=== PATIENT | female | born 1965 | race Caucasian/White ===

== ENCOUNTER 2020-11-29 07:14 | Outpatient (REF) | payer OTHER, SELFPAY ==
[2020-11-29 11:17] LABS: Hematocrit 44.8 % (37-47); Hemoglobin 13.5 g/dl (12.0-16.0); Mean Corpuscular HGB Conc 30.1 g/dl (31.0-35.0); Mean Corpuscular Hemoglobin 24.8 pg (27.0-33.0); Mean Corpuscular Volume 82.4 fL (80-98); Platelet Count 412 X10*3/uL (160-400); Red Blood Count 5.44 X10*6/uL (4.20-5.50); Red Cell Distribution Width 14.8 % (11.0-16.0); White Blood Count 6.6 X10*3/uL (4.8-10.8)
[2020-11-29 11:39] LABS: Alanine Aminotransferase 38 U/L (0-31); Albumin Level 4.3 g/dL (3.5-5.0); Alkaline Phosphatase 122 U/L (39-117); Anion Gap 21 (12-20); Aspartate Amino Transferase 26 U/L (5-31); Bilirubin Total 0.4 mg/dL (0.0-1.0); Blood Urea Nitrogen 18 mg/dL (9-16); Calcium 8.8 mg/dL (8.4-10.2); Carbon Dioxide 21 mmol/L (22-29); Chloride 104 mmol/L (96-108); Cholesterol 169 mg/dL; Estimated Glomerular Filt Rate > 60; Glucose Fasting 193 mg/dL (60-99); HDL Cholesterol 34 mg/dL; LDL Cholesterol Calculated 93 mg/dl; Potassium 4.7 mmol/l (3.3-5.1); Sodium 141 mmol/L (135-145); Total Protein 7.2 g/dL (6.5-8.0); Triglycerides 212 mg/dL
[2020-11-29 11:46] LABS: Estimated Average Glucose 186 mg/dL; Hemoglobin A1c % 8.1 %
[2020-11-29 11:57] LABS: TSH reflex Free T4 4.35 mIU/mL (0.32-4.0)
[2020-11-29 12:23] LABS: Creatinine Urine 109.84 mg/dL; Microalbum/Creatinine Ratio Ur 74.6 ug/mg cr
[2020-11-29 13:26] LABS: Free T4 (Free Thyroxine) 0.76 ng/dL (0.71-1.85)
== END 2020-11-29 07:15 | disposition home or self-care (01) ==
LOC: HO.HMGCLDS 07:14
PROVIDERS: PCP Internal Medicine; Visit Provider Internal Medicine
DX: E66.9 Obesity, unspecified (principal); E78.5 Hyperlipidemia, unspecified; E11.9 Type 2 diabetes mellitus without complications
CPT/HCPCS: 36415; 80053; 80061; 82043; 83036; 84439; 84443; 85027

== ENCOUNTER 2021-03-17 07:09 | Outpatient (REF) | payer OTHER, SELFPAY ==
[2021-03-17 11:36] LABS: Estimated Average Glucose 169 mg/dL; Hemoglobin A1c % 7.5 %
[2021-03-17 11:49] LABS: Creatinine Urine 72.46 mg/dL; Microalbum/Creatinine Ratio Ur 6.9 ug/mg cr
[2021-03-17 12:02] LABS: Alanine Aminotransferase 26 U/L (0-31); Albumin Level 4.3 g/dL (3.5-5.0); Alkaline Phosphatase 112 U/L (39-117); Anion Gap 15 (12-20); Aspartate Amino Transferase 20 U/L (5-31); Bilirubin Total 0.3 mg/dL (0.0-1.0); Blood Urea Nitrogen 20 mg/dL (9-16); Carbon Dioxide 25 mmol/L (22-29); Chloride 104 mmol/L (96-108); Cholesterol 136 mg/dL; Estimated Glomerular Filt Rate > 60; Glucose Fasting 158 mg/dL (60-99); HDL Cholesterol 29 mg/dL; LDL Cholesterol Calculated 72 mg/dl; Potassium 4.8 mmol/L (3.3-5.1); Sodium 139 mmol/L (135-145); Total Protein 7.1 g/dL (6.5-8.0); Triglycerides 177 mg/dL
[2021-03-17 12:10] LABS: TSH reflex Free T4 2.27 uIU/mL (0.32-4.0)
== END 2021-03-17 07:10 | disposition home or self-care (01) ==
LOC: HO.HMGCLDS 07:09
PROVIDERS: PCP Internal Medicine; Visit Provider Internal Medicine
DX: E11.9 Type 2 diabetes mellitus without complications (principal); E66.9 Obesity, unspecified; E78.5 Hyperlipidemia, unspecified
CPT/HCPCS: 36415; 80053; 80061; 82043; 83036; 84443

== ENCOUNTER 2021-06-21 08:25 | Outpatient (REF) | payer OTHER, SELFPAY ==
[2021-06-21 12:48] LABS: Estimated Average Glucose 154 mg/dL
[2021-06-21 12:54] LABS: Alanine Aminotransferase 32 U/L (0-31); Albumin Level 4.2 g/dL (3.5-5.0); Alkaline Phosphatase 109 U/L (39-117); Anion Gap 16 (12-20); Aspartate Amino Transferase 23 U/L (5-31); Bilirubin Total 0.5 mg/dL (0.0-1.0); Blood Urea Nitrogen 17 mg/dL (9-16); Calcium 9.2 mg/dL (8.4-10.2); Carbon Dioxide 26 mmol/L (22-29); Chloride 105 mmol/L (96-108); Cholesterol 141 mg/dL; Estimated Glomerular Filt Rate > 60; Glucose Fasting 118 mg/dL (60-99); HDL Cholesterol 28 mg/dL; LDL Cholesterol Calculated 73 mg/dl; Potassium 4.8 mmol/L (3.3-5.1); Sodium 142 mmol/L (135-145); Total Protein 6.9 g/dL (6.5-8.0); Triglycerides 203 mg/dL
[2021-06-21 12:55] LABS: Creatinine Urine 79.65 mg/dL; Microalbumin Urine < 5.0 mg/L
== END 2021-06-21 08:26 | disposition home or self-care (01) ==
LOC: HO.HMGCLDS 08:25
PROVIDERS: PCP Internal Medicine; Visit Provider Internal Medicine
DX: E11.9 Type 2 diabetes mellitus without complications (principal); E78.5 Hyperlipidemia, unspecified
CPT/HCPCS: 36415; 80053; 80061; 82043; 83036; 84443

== ENCOUNTER 2021-11-01 10:47 | Outpatient (REF) | payer OTHER, SELFPAY ==
[2021-11-01 14:17] LABS: Estimated Average Glucose 160 mg/dL; Hemoglobin A1c % 7.2 %
[2021-11-01 14:23] LABS: Alanine Aminotransferase 35 U/L (0-31); Albumin Level 4.3 g/dL (3.5-5.0); Alkaline Phosphatase 108 U/L (39-117); Anion Gap 17 (12-20); Aspartate Amino Transferase 26 U/L (5-31); Bilirubin Total 0.5 mg/dL (0.0-1.0); Blood Urea Nitrogen 20 mg/dL (9-16); Calcium 9.4 mg/dL (8.4-10.2); Carbon Dioxide 26 mmol/L (22-29); Chloride 105 mmol/L (96-108); Cholesterol 144 mg/dL; Estimated Glomerular Filt Rate > 60; Glucose Fasting 112 mg/dL (60-99); HDL Cholesterol 29 mg/dL; LDL Cholesterol Calculated 87 mg/dl; Potassium 4.6 mmol/L (3.3-5.1); Sodium 143 mmol/L (135-145); Total Protein 7.1 g/dL (6.5-8.0); Triglycerides 140 mg/dL
[2021-11-01 14:24] LABS: Creatinine Urine 88.28 mg/dL
== END 2021-11-01 10:48 | disposition home or self-care (01) ==
LOC: HO.HMGCLDS 10:47
PROVIDERS: PCP Internal Medicine; Visit Provider Internal Medicine
DX: E11.9 Type 2 diabetes mellitus without complications (principal); E78.5 Hyperlipidemia, unspecified
CPT/HCPCS: 36415; 80053; 80061; 82043; 83036

== ENCOUNTER 2022-02-14 09:06 | Outpatient (REF) | payer OTHER, SELFPAY ==
[2022-02-14 11:23] LABS: Hematocrit 43.2 % (37.0-47.0); Hemoglobin 12.7 g/dl (12.0-16.0); Mean Corpuscular HGB Conc 29.4 g/dl (31.0-35.0); Mean Corpuscular Hemoglobin 23.6 pg (27.0-33.0); Mean Corpuscular Volume 80.1 fL (80.0-98.0); Platelet Count 392 X10*3/uL (160-400); Red Blood Count 5.39 X10*6/uL (4.20-5.50); Red Cell Distribution Width 15.9 % (11.0-16.0); White Blood Count 5.7 X10*3/uL (4.8-10.8)
[2022-02-14 11:40] LABS: Anion Gap 14 (12-20); Blood Urea Nitrogen 16 mg/dL (9-16); Carbon Dioxide 26 mmol/L (22-29); Chloride 106 mmol/L (96-108); Estimated Glomerular Filt Rate > 60; Glucose Fasting 136 mg/dL (60-99); Potassium 4.6 mmol/L (3.3-5.1); Sodium 141 mmol/L (135-145)
[2022-02-14 11:41] LABS: Alanine Aminotransferase 34 U/L (0-31); Albumin Level 4.1 g/dL (3.5-5.0); Alkaline Phosphatase 106 U/L (39-117); Aspartate Amino Transferase 23 U/L (5-31); Bilirubin Total 0.4 mg/dL (0.0-1.0); Cholesterol 138 mg/dL; HDL Cholesterol 28 mg/dL; LDL Cholesterol Calculated 83 mg/dl; Total Protein 6.8 g/dL (6.5-8.0); Triglycerides 135 mg/dL
[2022-02-14 11:44] LABS: Creatinine Urine 68.59 mg/dL; Estimated Average Glucose 151 mg/dL; Hemoglobin A1c % 6.9 %; Microalbum/Creatinine Ratio Ur 7.2 ug/mg cr
== END 2022-02-14 09:07 | disposition home or self-care (01) ==
LOC: HO.HMGCLDS 09:06
PROVIDERS: PCP Internal Medicine; Visit Provider Internal Medicine
DX: Z00.00 Encounter for general adult medical examination without abnormal findings (principal); E11.9 Type 2 diabetes mellitus without complications; E78.5 Hyperlipidemia, unspecified
CPT/HCPCS: 36415; 80053; 80061; 82043; 83036; 85027

== ENCOUNTER 2022-05-30 10:12 | Outpatient (REF) | payer OTHER, SELFPAY ==
[2022-05-30 11:21] LABS: Estimated Average Glucose 154 mg/dL
[2022-05-30 11:41] LABS: Alanine Aminotransferase 34 U/L (0-31); Albumin Level 4.2 g/dL (3.5-5.0); Alkaline Phosphatase 113 U/L (39-117); Anion Gap 13 (12-20); Aspartate Amino Transferase 21 U/L (5-31); Bilirubin Total 0.6 mg/dL (0.0-1.0); Blood Urea Nitrogen 20 mg/dL (9-16); Carbon Dioxide 26 mmol/L (22-29); Chloride 107 mmol/L (96-108); Cholesterol 159 mg/dL; Estimated Glomerular Filt Rate > 60; Glucose Fasting 123 mg/dL (60-99); HDL Cholesterol 34 mg/dL; LDL Cholesterol Calculated 85 mg/dl; Potassium 4.5 mmol/L (3.3-5.1); Sodium 141 mmol/L (135-145); Total Protein 6.9 g/dL (6.5-8.0); Triglycerides 202 mg/dL
[2022-05-30 11:44] LABS: Creatinine Urine 76.92 mg/dL; Microalbum/Creatinine Ratio Ur 11.7 ug/mg cr
== END 2022-05-30 10:13 | disposition home or self-care (01) ==
LOC: HO.HMGCLDS 10:12
PROVIDERS: PCP Internal Medicine; Visit Provider Internal Medicine
DX: E11.9 Type 2 diabetes mellitus without complications (principal); E78.5 Hyperlipidemia, unspecified
CPT/HCPCS: 36415; 80053; 80061; 82043; 83036

== ENCOUNTER 2022-09-05 09:21 | Outpatient (REF) | payer OTHER, SELFPAY ==
[2022-09-05 11:33] LABS: MANUAL DIFF FLAG NO
[2022-09-05 11:39] LABS: Basophils Percent Auto 0.6 % (0-2); Eosinophils Absolute Auto 0.3 X10*3/uL (0.0-0.4); Eosinophils Percent Auto 6.5 % (0-4); Hematocrit 41.9 % (37.0-47.0); Hemoglobin 12.8 g/dl (12.0-16.0); Imm Gran Abs Auto 0.01 X10*3/uL (0.00-0.03); Imm Gran Pct Auto 0.2 % (0.0-0.4); Lymphocytes Absolute Auto 1.7 X10*3/uL (1.2-4.9); Lymphocytes Percent Auto 32.5 % (20-40); Mean Corpuscular HGB Conc 30.5 g/dl (31.0-35.0); Mean Corpuscular Volume 78.5 fL (80.0-98.0); Mean Platelet Volume 9.9 fL (9.4-12.3); Monocytes Absolute Auto 0.3 X10*3/uL (0.1-1.2); Monocytes Percent Auto 5.9 % (2-11); Neutrophils Absolute Auto 2.9 x10*3/uL (2.0-8.3); Neutrophils Percent Auto 54.3 % (45-73); Platelet Count 210 X10*3/uL (160-400); Red Blood Count 5.34 X10*6/uL (4.20-5.50); Red Cell Distribution Width 15.8 % (11.0-16.0); White Blood Count 5.3 X10*3/uL (4.8-10.8)
[2022-09-05 12:11] LABS: Estimated Average Glucose 151 mg/dL; Hemoglobin A1c % 6.9 %
[2022-09-05 12:22] LABS: Creatinine Urine 76.65 mg/dL; Microalbum/Creatinine Ratio Ur 14.3 ug/mg cr
[2022-09-05 12:34] LABS: Alanine Aminotransferase 27 U/L (0-31); Albumin Level 3.9 g/dL (3.5-5.0); Alkaline Phosphatase 96 U/L (39-117); Anion Gap 18 (12-20); Aspartate Amino Transferase 20 U/L (5-31); Bilirubin Total 0.4 mg/dL (0.0-1.0); Blood Urea Nitrogen 20 mg/dL (9-16); Calcium 8.7 mg/dL (8.4-10.2); Carbon Dioxide 23 mmol/L (22-29); Chloride 105 mmol/L (96-108); Cholesterol 144 mg/dL; Estimated Glomerular Filt Rate > 60; Glucose Fasting 128 mg/dL (60-99); HDL Cholesterol 28 mg/dL; LDL Cholesterol Calculated 74 mg/dl; Potassium 4.4 mmol/L (3.3-5.1); Sodium 142 mmol/L (135-145); Total Protein 6.3 g/dL (6.5-8.0); Triglycerides 212 mg/dL
== END 2022-09-05 09:22 | disposition home or self-care (01) ==
LOC: HO.HMGCLDS 09:21
PROVIDERS: PCP Internal Medicine; Visit Provider Internal Medicine
DX: E78.5 Hyperlipidemia, unspecified (principal); E11.9 Type 2 diabetes mellitus without complications
CPT/HCPCS: 36415; 80053; 80061; 82043; 83036; 85025

== ENCOUNTER → 2022-12-22 08:22 | Outpatient (BNVA) | payer OTHER, SELFPAY | PROVIDERS: PCP Internal Medicine; Visit Provider Nurse Practitioner Family | DX: Z13.89 Encounter for screening for other disorder (principal) ==

== ENCOUNTER 2023-01-16 10:27 | Outpatient (REF) | payer OTHER, SELFPAY ==
[2023-01-16 13:25] LABS: Alanine Aminotransferase 36 U/L (0-31); Albumin Level 4.3 g/dL (3.5-5.0); Alkaline Phosphatase 108 U/L (39-117); Anion Gap 15 (12-20); Aspartate Amino Transferase 26 U/L (5-31); Bilirubin Total 0.8 mg/dL (0.0-1.0); Blood Urea Nitrogen 20 mg/dL (9-16); Carbon Dioxide 25 mmol/L (22-29); Chloride 106 mmol/L (96-108); Cholesterol 164 mg/dL; Estimated Glomerular Filt Rate > 60; Glucose Fasting 112 mg/dL (60-99); HDL Cholesterol 32 mg/dL; LDL Cholesterol Calculated 105 mg/dl; Potassium 4.5 mmol/L (3.3-5.1); Sodium 141 mmol/L (135-145); Total Protein 6.9 g/dL (6.5-8.0); Triglycerides 136 mg/dL
[2023-01-16 13:35] LABS: Creatinine Urine 76.09 mg/dL; Estimated Average Glucose 148 mg/dL; Hemoglobin A1c % 6.8 %; Microalbum/Creatinine Ratio Ur 15.7 ug/mg cr
== END 2023-01-16 10:28 | disposition home or self-care (01) ==
LOC: HO.HMGCLDS 10:27
PROVIDERS: PCP Internal Medicine; Visit Provider Internal Medicine
DX: E11.9 Type 2 diabetes mellitus without complications (principal); E78.5 Hyperlipidemia, unspecified; E66.9 Obesity, unspecified; M85.80 Other specified disorders of bone density and structure, unspecified site; R19.5 Other fecal abnormalities
CPT/HCPCS: 36415; 80053; 80061; 82043; 83036

== ENCOUNTER 2023-01-23 13:11 | Outpatient (REF) | payer OTHER, SELFPAY ==
--- NOTE | ~2023-01-23 | XR_ITS ---
EXAMINATION: XR CHEST CLINICAL INFORMATION: Cough COMPARISON: None TECHNIQUE: 2 views of the chest were obtained. FINDINGS: Cardiac silhouette is normal in size. The lungs are well aerated. There is no lobar consolidation. No pleural effusion or pneumothorax. Mild degenerative changes of the spine. XR/XR chest 2V IMPRESSION: No acute pulmonary pathology.
[2023-01-23 17:11] LABS: Influenza A PCR NEGATIVE (Negative); Influenza B PCR NEGATIVE (Negative); Resp Syncy Virus RNA Qual PCR NEGATIVE (Negative); SARS COV2 PCR INHOUSE NEGATIVE (Negative)
== END 2023-01-23 13:12 | disposition home or self-care (01) ==
LOC: HO.HMGCX 13:11
PROVIDERS: PCP Internal Medicine; Visit Provider Physician Assistant Medical
DX: Z20.822 Contact with and (suspected) exposure to COVID-19 (principal); R05.9 Cough, unspecified
CPT/HCPCS: 0241U; 71046

== ENCOUNTER 2023-04-05 08:29 | Day surgery (SDC) | payer OTHER, SELFPAY ==
[2023-04-01 10:12] VITALS: BMI 43.8
[2023-04-05 08:46] VITALS: BP 145/89; PULSE 89; RESP 18; TEMP 36.2; O2SAT 95; BMI 49.3
[2023-04-05 09:01] LABS: Glucose, Whole Blood 150 mg/dL (60-115)
[2023-04-05] MEDS: Lactated Ringers 1,000 ML 50 ML IVCONT (09:10)
--- NOTE | 2023-04-05 09:12 | MHC.SHP ---
Pre-Procedural Eval Section A Date of Service: 04/05/23 The patient is an INPATIENT: No The History & Physical has been completed within 30 days and I have reviewed it.: No Section B Chief Complaint: Encounter for screening for malignant neoplasm Relevant Family History (Specify if Yes): No Relevant Social History: None Present Medications: see Short Stay Collaborative assessment Medical History: Significant History (DM type 2 (diabetes mellitus, type 2) Hyperlipidemia Mammogram normal Normal Pap smear Osteopenia Overweight Sleep apnea) History of Previous Operations: No relevant previous surgery Allergies: Allergies Allergy/AdvReac Type Severity Reaction Status Date / Time No Known Allergies Allergy Verified 02/10/23 08:42 Review of Systems Sugical H&P ROS: Negative: Constitution, Cardiovascular, Respiratory and Gastrointestinal Exam Surgical H&P Exam: Normal: Heart, Normal: Lungs, Normal: Extremities and Normal: Abdomen Plan Diagnosis/Plan: Unchanged I have reviewed the history and physical and performed a pertinent physical examination on my patient. No changes have occurred unless specified. Time Spent With Patient Time: Total time managing care of this patient today ____ minutes.
--- NOTE | 2023-04-05 09:19 | P.OP_ITS ---
Operative Note Operative Note Date of Service: 04/05/23 Narrative: COLONOSCOPY TILL CECUM WITH BIOPSIES Pre-op diagnosis: COLON CANCER SCREENING, POSITIVE COLOGUARD TEST Post-op diagnosis:? Diverticulosis Endoscopist:? Brodie Squires MD Anesthesia:?MAC Consent: Indications for the procedure and potential complications of bleeding, perforation, reaction to medications and missed diagnosis were discussed with the patient and informed consent was obtained. Instrument: Olympus PCF H 190 L variable stiffness pediatric colonoscope Monitoring: Vital signs and clinical assessment, intermittent blood pressure monitoring, continuous EKG monitoring, Pulse oximetry and Carbon Dioxide monitoring were done throughout the procedure. Please see anesthesia flowsheet. Colon withdrawl time was 15 minutes. Procedure: The patient was placed in the left lateral decubitis position and pre-procedure medications were administered. After a digital rectal examination of the ano-rectum, the video colonoscope was inserted into the rectum and advanced through the colon to the cecum. The colonoscope was slowly withdrawn in a retrograde panoramic fashion and the colon mucosa was carefully examined including a retroflexed view of the rectum. Findings and interventions are described below. Procedure Difficulty: Colon was long and there was some loop formation. Findings: Terminal Ileum: Not evaluated Cecum: Prominent ICV - biopsies obtained from the posterior lip of the valve Ascending Colon: Normal Transverse Colon: Normal Descending Colon: Normal Sigmoid Colon: Moderate diverticulosis Rectum: Normal Ano-rectum: Normal Colon preparation: Good after copious irrigation Impression and Post Procedure Diagnosis: Colonoscopy Findings: No polyps were detected Prominent ICV - biopsies obtained from the posterior lip of the valve Moderate diverticulosis seen in the sigmoid colon Plan: Await pathology results Patient has an appointment on 04/13/23 in the GI [facility] with Raissa Allred FNP- BC. Repeat Colonoscopy interval based on path results - in 5 years if biopsies are normal. (adult colonoscope for future colonoscopies) Above findings were reviewed with the patient and diverticulosis handout was given in the discharge area
[2023-04-05 10:05] VITALS: BP 102/72; PULSE 84; RESP 16; TEMP 36.1; O2SAT 96
[2023-04-05 10:20] VITALS: BP 126/74; PULSE 80; RESP 16; TEMP 36.2; O2SAT 95
== END 2023-04-05 10:45 | disposition home or self-care (01) ==
PROVIDERS: PCP Internal Medicine; Visit Provider Internal Medicine Gastroenterology
PROC: 0DJD8ZZ Inspection of Lower Intestinal Tract, Via Natural or Artificial Opening Endoscopic (ICD-10-PCS; CPT 45378; principal; 2023-04-05 09:30)
DX: R19.5 Other fecal abnormalities (principal); K57.30 Diverticulosis of large intestine without perforation or abscess without bleeding; G47.33 Obstructive sleep apnea (adult) (pediatric); E11.9 Type 2 diabetes mellitus without complications; E78.5 Hyperlipidemia, unspecified; E66.3 Overweight; Z68.41 Body mass index [BMI] 40.0-44.9, adult; M85.80 Other specified disorders of bone density and structure, unspecified site; Z79.82 Long term (current) use of aspirin; Z79.84 Long term (current) use of oral hypoglycemic drugs; Z79.899 Other long term (current) drug therapy
CPT/HCPCS: 45380; 82947; 88305

== ENCOUNTER → 2023-04-13 07:55 | Outpatient (BNVA) | payer OTHER, SELFPAY | PROVIDERS: PCP Internal Medicine; Referring Provider Internal Medicine; Visit Provider Nurse Practitioner Family ==

== ENCOUNTER 2023-06-05 10:15 | Outpatient (REF) | payer OTHER, SELFPAY ==
[2023-06-05 11:31] LABS: Estimated Average Glucose 146 mg/dL; Hemoglobin A1c % 6.7 %
[2023-06-05 11:47] LABS: Creatinine Urine 140.35 mg/dL; Microalbum/Creatinine Ratio Ur 8.5 ug/mg cr
[2023-06-05 11:48] LABS: Alanine Aminotransferase 35 U/L (0-31); Albumin Level 4.2 g/dL (3.5-5.0); Alkaline Phosphatase 100 U/L (39-117); Anion Gap 13 (12-20); Aspartate Amino Transferase 28 U/L (5-31); Bilirubin Total 0.6 mg/dL (0.0-1.0); Blood Urea Nitrogen 21 mg/dL (9-16); Calcium 9.7 mg/dL (8.4-10.2); Carbon Dioxide 26 mmol/L (22-29); Chloride 106 mmol/L (96-108); Cholesterol 162 mg/dL; Estimated Glomerular Filt Rate > 60; Glucose Fasting 123 mg/dL (60-99); HDL Cholesterol 36 mg/dL; LDL Cholesterol Calculated 101 mg/dl; Potassium 4.4 mmol/L (3.3-5.1); Sodium 141 mmol/L (135-145); Triglycerides 126 mg/dL
== END 2023-06-05 10:16 | disposition home or self-care (01) ==
LOC: HO.HMGCLDS 10:15
PROVIDERS: PCP Internal Medicine; Visit Provider Internal Medicine
DX: E11.9 Type 2 diabetes mellitus without complications (principal); E78.5 Hyperlipidemia, unspecified
CPT/HCPCS: 36415; 80053; 80061; 82043; 83036

== ENCOUNTER 2023-06-11 08:21 | Outpatient (AMB) | payer OTHER, SELFPAY ==
[2023-06-11 08:27] VITALS: BP 110/64; PULSE 88; O2SAT 97; BMI 48.7
--- NOTE | 2023-06-11 08:27 | A.OFFPC_ITS ---
Vital Signs 06/11/23 08:27 Height 5 ft 1.5 in Weight 262 lb BMI 48.7 BP 110/64 Blood Pressure Location Rt brachial Position Sitting Pulse 88 Pulse Source Pulse Oximeter Pulse Oximetry (%) 97 Oxygen Delivery Method Room Air Intake Visit Reasons: 4m follow up DM Intake Note: Pt is here today for her 4 mo. f/u DM Allergies No Known Allergies Allergy (Verified 06/11/23 08:27) Tobacco use date assessed: 06/11/23 Dental Screening Dental Screen Date: 06/11/23 Did you have a dental visit in the last 12 months?: Yes Did you have a dental problem in the last 6 months where you did not have access to dental care?: No Was dental information given to patient?: Patient has dentist HPI 4m follow up DM HPI Details Pt presents for f/u DM 2 and hyperlipid, stable. 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 How often do you have a drink containing alcohol?: Never Total Score: 0 VICTORIANO-7 AMB Questionnaire VICTORIANO-7 Date VICTORIANO - 7 assessed: 02/10/23 Source: Developed by Drs. Pete Chung, Iris Oh, Leon Lopez and colleagues, with an educational lamont from [employer]. Review of Systems Const All systems reviewed & are unremarkable except as noted in HPI and below Reports no additional complaints Eyes Reports no additional complaints ENT Reports no additional complaints Card Reports no additional complaints Resp Reports no additional complaints GI Reports no additional complaints Reports no additional complaints Physical exam (Primary Care) Vital Signs: Last Vital Signs Pulse 88 06/11/23 08:27 BP 110/64 06/11/23 08:27 Pulse Ox 97 06/11/23 08:27 Oxygen Delivery Method Room Air 06/11/23 08:27 BMI result Body Mass Index 48.7 Tobacco/Smoking Status: Tobacco use Status Tobacco use date assessed 06/11/23 06/11/23 08:31 Patient Tobacco Use Status Never used Tobacco 06/11/23 08:31 e-Cigarette/Vaping Use Never Used 06/11/23 08:31 Thrive Assessment: Date of Thrive Assessment Date Thrive assessed 02/10/23 06/11/23 08:31 Const General: no acute distress HENMT Head: Yes normal to inspection Ears: hearing grossly normal bilaterally Face and sinus: Yes normal facial exam Throat: Yes posterior oropharynx normal Eyes General: appearance normal, both eyes and all related structures Neck Neck: Yes no lymphadenopathy and Yes supple Resp Effort & Inspection: normal respiratory effort Auscultation: clear to auscultation bilaterally Cardio Rhythm: regular rhythm Heart sounds: S1 normal heart sound present and S2 normal heart sound present GI Inspection: Yes normal to inspection Palpation (GI): Soft to palpation Percussion: Yes normal to percussion Assessment and Plan Assessment & Plan (1) Hyperlipidemia: Code(s): E78.5 - Hyperlipidemia, unspecified Plan: cont statin (2) DM type 2 (diabetes mellitus, type 2): Code(s): E11.9 - Type 2 diabetes mellitus without complications Plan: A1c is 6.8. ADA diet increase exercise weight loss discussed with the patient. Patient was advised to add Ozempic but she declined. She will return in 4 months for physical with fasting labs before (3) Hx of colonoscopy: Comment: 04.05.23 [facility] [place] Code(s): Z98.890 - Other specified postprocedural states Orders: Orders Comprehensive [place]. Panel Fast 4 Months E11.9 - Type 2 diabetes mellitus without complications, E78.5 - Hyperlipidemia, unspecified, Z00.00 - Encounter for general adult medical examination without abnormal findings Complete Blood Count Man Dif 4 Months E11.9 - Type 2 diabetes mellitus without complications, E78.5 - Hyperlipidemia, unspecified, Z00.00 - Encounter for general adult medical examination without abnormal findings Hemoglobin A1c 4 Months E11.9 - Type 2 diabetes mellitus without complications, E78.5 - Hyperlipidemia, unspecified, Z00.00 - Encounter for general adult medical examination without abnormal findings Lipid Panel 4 Months E11.9 - Type 2 diabetes mellitus without complications, E78.5 - Hyperlipidemia, unspecified, Z00.00 - Encounter for general adult medical examination without abnormal findings Microalbumin, Random (w Creat) 4 Months E11.9 - Type 2 diabetes mellitus without complications, E78.5 - Hyperlipidemia, unspecified, Z00.00 - Encounter for general adult medical examination without abnormal findings Coding Level of Care Code Est Pt Level 4 (79443) Diagnoses Hyperlipidemia E78.5 DM type 2 (diabetes mellitus, type 2) E11.9 Hx of colonoscopy Z98.890
== END 2023-06-11 09:10 | disposition home or self-care (01) ==
PROVIDERS: Visit Provider Internal Medicine
DX: E78.5 Hyperlipidemia, unspecified (principal); E11.9 Type 2 diabetes mellitus without complications; Z98.890 Other specified postprocedural states
CPT/HCPCS: 99214

== ENCOUNTER 2023-10-09 09:33 | Outpatient (REF) | payer OTHER, SELFPAY ==
[2023-10-09 11:14] LABS: Baso%MD 0.6 %; Eos%MD 4.4 %; Hemoglobin 13.6 g/dl (12.0-16.0); IG%MD 0.2 %; Lymph%MD 34.1 %; Mean Corpuscular HGB Conc 30.2 g/dl (31.0-35.0); Mean Corpuscular Hemoglobin 24.2 pg (27.0-33.0); Mean Corpuscular Volume 79.9 fL (80.0-98.0); Mean Platelet Volume 9.9 fL (9.4-12.3); Mono%MD 6.1 %; Neut%MD 54.6 %; Platelet Count 339 X10*3/uL (160-400); Red Blood Count 5.63 X10*6/uL (4.20-5.50); Red Cell Distribution Width 15.5 % (11.0-16.0); White Blood Count 5.5 X10*3/uL (4.8-10.8)
[2023-10-09 11:23] LABS: Estimated Average Glucose 143 mg/dL; Hemoglobin A1c % 6.6 % (<6.0)
[2023-10-09 11:49] LABS: Creatinine Urine 67.27 mg/dL; Microalbumin Urine < 5.0 mg/L
[2023-10-09 11:52] LABS: Eosinophils Absolute Manual 0.2 X10*3/uL (0.0-0.4); Eosinophils Percent Manual 4 % (0-4); Lymphocytes Absolute Manual 1.6 X10*3/uL (1.2-4.9); Lymphocytes Percent Manual 29 % (20-40); Monocytes Absolute Manual 0.4 X10*3/uL (0.1-1.2); Monocytes Percent Manual 8 % (2-11); Neutrophils Percent Manual 59 % (45-73)
[2023-10-09 11:53] LABS: Band Neutrophils Percent 0 % (3-5); Neutrophils Absolute Manual 3.2 X10*3/uL (2.0-8.3)
[2023-10-09 11:54] LABS: Platelet Estimate NORMAL (NORMAL); Platelet Morphology Comment NORMAL; RBC Morphology NORMAL
[2023-10-09 11:57] LABS: Alanine Aminotransferase 40 U/L (0-31); Albumin Level 4.2 g/dL (3.5-5.0); Alkaline Phosphatase 92 U/L (39-117); Anion Gap 14 (12-20); Aspartate Amino Transferase 25 U/L (5-31); Bilirubin Total 0.3 mg/dL (0.0-1.0); Blood Urea Nitrogen 22 mg/dL (9-16); Calcium 9.1 mg/dL (8.4-10.2); Carbon Dioxide 25 mmol/L (22-29); Chloride 106 mmol/L (96-108); Cholesterol 155 mg/dL (<200); Estimated Glomerular Filt Rate > 60; Glucose Fasting 130 mg/dL (60-99); HDL Cholesterol 35 mg/dL (>40); LDL Cholesterol Calculated 88 mg/dL (<100); Potassium 4.5 mmol/L (3.3-5.1); Sodium 140 mmol/L (135-145); Total Protein 6.9 g/dL (6.5-8.0); Triglycerides 160 mg/dL (<150)
== END 2023-10-09 09:34 | disposition home or self-care (01) ==
LOC: HO.HMGCLDS 09:33
PROVIDERS: PCP Internal Medicine; Visit Provider Internal Medicine
DX: Z00.00 Encounter for general adult medical examination without abnormal findings (principal); E78.5 Hyperlipidemia, unspecified; E11.9 Type 2 diabetes mellitus without complications
CPT/HCPCS: 36415; 80053; 80061; 82570; 83036; 85007; 85027

== ENCOUNTER 2023-10-19 08:10 | Outpatient (AMB) | payer OTHER, SELFPAY ==
[2023-10-19 08:14] VITALS: BP 124/78; PULSE 85; O2SAT 96; BMI 48.1
--- NOTE | 2023-10-19 08:14 | MHC.PC.OV ---
Vital Signs 10/19/23 08:14 Height 5 ft 1.5 in Weight 259 lb BMI 48.1 BP 124/78 Blood Pressure Location Lt brachial Position Sitting Pulse 85 Pulse Source Pulse Oximeter Pulse Oximetry (%) 96 Oxygen Delivery Method Room Air Intake Visit Reasons: 4m follow up/PE Intake Note: Pt is here today for 4 months follow up visit. Allergies No Known Allergies Allergy (Verified 10/19/23 08:17) Medication List - Last Reconciled 10/19/23 by Michaela Corbett MD aspirin 81 mg PO DAILY atorvastatin 20 mg PO DAILY blood sugar diagnostic (FreeStyle Lite Strips) use twice daily to test blood sugar blood-glucose meter (FreeStyle Lite Meter kit) As directed empagliflozin (Jardiance) 25 mg PO QAM lancets (FreeStyle Lancets) use 1 strip to test blood sugar twice a day metformin ER 1,000 mg (2 x 500 mg) PO BID Tobacco use date assessed: 10/19/23 Dental Screening Dental Screen Date: 10/19/23 Did you have a dental visit in the last 12 months?: Yes Did you have a dental problem in the last 6 months where you did not have access to dental care?: No Was dental information given to patient?: Patient has dentist HPI 4m follow up/PE HPI Details Pt presents for PE. 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 Alcohol intake: current Alcohol intake frequency: holidays/special occasions only Patient Tobacco Use Status: Never used Tobacco e-Cigarette/Vaping Use: Never Used Current occupational status: employed Cognitive needs: No Hearing needs: No Vision needs: Yes Questionnaire Thrive Questionnaire Date Thrive assessed: 02/10/23 I am a: Patient What is your living situation today?: I have a steady place to live Within the past 12 months, did the food you bought not last and you didn't have the money to get more?: Never true Within the past 12 months, did you worry whether your food would run out before you got money to buy more?: Never true AUDIT C Alcohol Use Questionnaire (AUDIT-C) 1. How often do you have a drink containing alcohol?: Monthly or less 2. How many drinks containing alcohol do you have on a typical day when you are drinking?: 1 or 2 3. How often do you have six or more drinks on one occasion?: Never Total Score: 1 VICTORIANO-7 AMB Questionnaire VICTORIANO-7 Date VICTORIANO - 7 assessed: 02/10/23 Feeling nervous, anxious, or on edge: 0 = Not at all Not being able to stop or control worryin = Not at all Worrying too much about different things: 0 = Not at all Trouble relaxin = Not at all Being so restless that it is hard to sit still: 0 = Not at all Becoming easily annoyed or irritable: 0 = Not at all Feeling afraid as if something awful might happen: 0 = Not at all Total VICTORIANO-7 score (0-4 normal; 5-9 mild; 10-14 moderate; 15-21 severe): 0 Source: Developed by Drs. Pete Chung, Iris Oh, Leon Lopez and colleagues, with an educational lamont from [employer]. Review of Systems Const All systems reviewed & are unremarkable except as noted in HPI and below Reports no additional complaints Eyes Reports no additional complaints Card Reports no additional complaints Resp Reports no additional complaints GI Reports no additional complaints Reports no additional complaints Musc Reports no additional complaints Physical exam (Primary Care) Vital Signs: Last Vital Signs Pulse 85 10/19/23 08:14 BP 124/78 10/19/23 08:14 Pulse Ox 96 10/19/23 08:14 Oxygen Delivery Method Room Air 10/19/23 08:14 BMI result Body Mass Index 48.1 Tobacco/Smoking Status: Tobacco use Status Tobacco use date assessed 10/19/23 10/19/23 08:19 Patient Tobacco Use Status Never used Tobacco 10/19/23 08:19 e-Cigarette/Vaping Use Never Used 10/19/23 08:19 Thrive Assessment: Date of Thrive Assessment Date Thrive assessed 02/10/23 10/19/23 08:19 Const General: no acute distress HENMT Face and sinus: Yes normal facial exam Throat: Yes posterior oropharynx normal Neck Neck: Yes no lymphadenopathy and Yes supple Resp Effort & Inspection: normal respiratory effort Auscultation: clear to auscultation bilaterally Cardio Rhythm: regular rhythm Heart sounds: S1 normal heart sound present and S2 normal heart sound present GI Inspection: Yes normal to inspection Palpation (GI): Soft to palpation Percussion: Yes normal to percussion Auscultation: normal bowel sounds Assessment and Plan Assessment & Plan (1) Annual physical exam: Onset Date: ~06/11/23 Code(s): Z00.00 - Encounter for general adult medical examination without abnormal findings Plan: ADA DIET REGULAR EXERCISE WEIGHT LOSS DISCUSSED WITH THE PATIENT. SHE IS UP-TO-DATE WITH MAMMOGRAM PAP SMEAR AND COLONOSCOPY (2) Hyperlipidemia: Code(s): E78.5 - Hyperlipidemia, unspecified Plan: cont statin (3) DM type 2 (diabetes mellitus, type 2): Comment: pt declined GLP-1 receptor agonist Code(s): E11.9 - Type 2 diabetes mellitus without complications Plan: A1C is 6.6, ADA diet, weight loss exercise , cont meds, f/u 4 months (4) Obese: Code(s): E66.9 - Obesity, unspecified Orders: Orders Hemoglobin A1c 4 Months E11.9 - Type 2 diabetes mellitus without complications, E66.9 - Obesity, unspecified, E78.5 - Hyperlipidemia, unspecified, Z00.00 - Encounter for general adult medical examination without abnormal findings Complete Blood Count Auto Diff 4 Months E11.9 - Type 2 diabetes mellitus without complications, E66.9 - Obesity, unspecified, E78.5 - Hyperlipidemia, unspecified, Z00.00 - Encounter for general adult medical examination without abnormal findings Comprehensive [place]. Panel Fast 4 Months E11.9 - Type 2 diabetes mellitus without complications, E66.9 - Obesity, unspecified, E78.5 - Hyperlipidemia, unspecified, Z00.00 - Encounter for general adult medical examination without abnormal findings Lipid Panel 4 Months E11.9 - Type 2 diabetes mellitus without complications, E66.9 - Obesity, unspecified, E78.5 - Hyperlipidemia, unspecified, Z00.00 - Encounter for general adult medical examination without abnormal findings Microalbumin, Random (w Creat) 4 Months E11.9 - Type 2 diabetes mellitus without complications, E66.9 - Obesity, unspecified, E78.5 - Hyperlipidemia, unspecified, Z00.00 - Encounter for general adult medical examination without abnormal findings Medications: Refilled empagliflozin (Jardiance) 25 mg PO QAM 90 tabs 3RF Coding Level of Care Code Est Pt Prev Care 40-64y(74873) Diagnoses Annual physical exam Z00.00 Hyperlipidemia E78.5 DM type 2 (diabetes mellitus, type 2) E11.9 Obese E66.9
== END 2023-10-19 09:04 | disposition home or self-care (01) ==
PROVIDERS: PCP Internal Medicine; Visit Provider Internal Medicine
DX: Z00.00 Encounter for general adult medical examination without abnormal findings (principal); E11.9 Type 2 diabetes mellitus without complications; Z68.42 Body mass index [BMI] 45.0-49.9, adult; E78.5 Hyperlipidemia, unspecified; E66.9 Obesity, unspecified
CPT/HCPCS: 99396

== ENCOUNTER 2024-02-12 10:41 | Outpatient (REF) | payer OTHER, SELFPAY ==
[2024-02-12 13:39] LABS: MANUAL DIFF FLAG NO
[2024-02-12 13:40] LABS: Basophils Percent Auto 0.4 % (0-2); Eosinophils Absolute Auto 0.1 X10*3/uL (0.0-0.4); Eosinophils Percent Auto 2.3 % (0-4); Hematocrit 42.4 % (37.0-47.0); Imm Gran Abs Auto 0.01 X10*3/uL (0.00-0.03); Imm Gran Pct Auto 0.2 % (0.0-0.4); Lymphocytes Absolute Auto 1.7 X10*3/uL (1.2-4.9); Lymphocytes Percent Auto 33.4 % (20-40); Mean Corpuscular HGB Conc 30.7 g/dl (31.0-35.0); Mean Corpuscular Hemoglobin 24.5 pg (27.0-33.0); Mean Corpuscular Volume 79.8 fL (80.0-98.0); Mean Platelet Volume 10.5 fL (9.4-12.3); Monocytes Absolute Auto 0.3 X10*3/uL (0.1-1.2); Monocytes Percent Auto 6.4 % (2-11); Neutrophils Percent Auto 57.3 % (45-73); Platelet Count 228 X10*3/uL (160-400); Red Blood Count 5.31 X10*6/uL (4.20-5.50); Red Cell Distribution Width 15.2 % (11.0-16.0); White Blood Count 5.2 X10*3/uL (4.8-10.8)
[2024-02-12 13:53] LABS: Alanine Aminotransferase 35 U/L (0-31); Alkaline Phosphatase 92 U/L (39-117); Anion Gap 14 (12-20); Aspartate Amino Transferase 24 U/L (5-31); Bilirubin Total 0.3 mg/dL (0.0-1.0); Blood Urea Nitrogen 20 mg/dL (9-16); Carbon Dioxide 22 mmol/L (22-29); Chloride 108 mmol/L (96-108); Cholesterol 140 mg/dL (<200); Estimated Glomerular Filt Rate > 60; Glucose Fasting 120 mg/dL (60-99); HDL Cholesterol 35 mg/dL (>40); LDL Cholesterol Calculated 80 mg/dL (<100); Potassium 4.2 mmol/L (3.3-5.1); Sodium 140 mmol/L (135-145); Total Protein 6.7 g/dL (6.5-8.0); Triglycerides 129 mg/dL (<150)
[2024-02-12 13:56] LABS: Estimated Average Glucose 148 mg/dL; Hemoglobin A1c % 6.8 % (<6.0)
[2024-02-12 14:07] LABS: Creatinine Urine 97.55 mg/dL; Microalbum/Creatinine Ratio Ur 7.1 ug/mg cr (<30)
== END 2024-02-12 10:42 | disposition home or self-care (01) ==
LOC: HO.HMGCLDS 10:41
PROVIDERS: PCP Internal Medicine; Visit Provider Internal Medicine
DX: Z00.00 Encounter for general adult medical examination without abnormal findings (principal); E78.5 Hyperlipidemia, unspecified; E11.9 Type 2 diabetes mellitus without complications; E66.9 Obesity, unspecified
CPT/HCPCS: 36415; 80053; 80061; 82043; 82570; 83036; 85025

== ENCOUNTER 2024-02-21 08:30 | Outpatient (AMB) | payer OTHER, SELFPAY ==
--- NOTE | 2024-02-21 08:45 | MHC.PC.OV ---
Vital Signs 02/21/24 08:46 Height 5 ft 5.1 in Weight 260 lb BMI 43.1 BP 126/76 Blood Pressure Location Rt brachial Position Sitting Pulse 85 Pulse Source Pulse Oximeter Pulse Oximetry (%) 95 Oxygen Delivery Method Room Air Intake Visit Reasons: 3 Month follow up Intake Note: Pt is here today for 4 months follow up visit. Allergies No Known Allergies Allergy (Verified 02/21/24 08:50) Medication List - Last Reconciled 02/21/24 by Michaela Corbett MD aspirin 81 mg PO DAILY atorvastatin 20 mg PO DAILY blood sugar diagnostic (FreeStyle Lite Strips) use twice daily to test blood sugar blood-glucose meter (FreeStyle Lite Meter kit) As directed empagliflozin (Jardiance) 25 mg PO QAM lancets (FreeStyle Lancets) use 1 strip to test blood sugar twice a day metformin ER 1,000 mg (2 x 500 mg) PO BID Tobacco use date assessed: 02/21/24 Dental Screening Dental Screen Date: 02/21/24 Did you have a dental visit in the last 12 months?: Yes Did you have a dental problem in the last 6 months where you did not have access to dental care?: No Was dental information given to patient?: Patient has dentist HPI 3 Month follow up HPI Details Pt presents for f/u DM 2, hyperlipid, stable on meds. 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 1. Little interest or pleasure in doing things: not at all 2. Feeling down, depressed, or hopeless: several days 3. Trouble falling or staying asleep, or sleeping too much: several days 4. Feeling tired or having little energy: several days 5. Poor appetite or overeating: not at all 6. Feeling bad about yourself - or that you are a failure or have let yourself or your family down: not at all 7. Trouble concentrating on things, such as reading the newspaper or watching television: not at all 8. Moving or speaking so slowly that other people could have noticed. Or the opposite - being so fidgety or restless that you have been moving around a lot more than usual: not at all 9. Thoughts that you would be better off or of hurting yourself in some way: not at all Total score: 3 Depression Screening Interpretation: Negative Depression Screening Done: Yes 21776 - PHQ-9 Billing: Yes Source: Developed by Drs. Pete Chung, Iris Oh, Leon Lopez and colleagues, with an educational lamont from [employer]. Thrive Questionnaire Date Thrive assessed: 02/21/24 I am a: Patient What is your living situation today?: I have a steady place to live Within the past 12 months, did the food you bought not last and you didn't have the money to get more?: Never true Within the past 12 months, did you worry whether your food would run out before you got money to buy more?: Never true Do you have trouble paying for medicines?: No Do you have trouble getting transportation to medical appointments?: No Do you have trouble paying your heating and electricity bill?: No Do you have trouble taking care of your child, family member or friend?: No Do you have trouble with day-to-day activities such as bathing, preparing meals, shopping, managing finances, etc.?: No Are you currently unemployed and looking for a job?: No Are you interested in more education?: No Please select the resources that you would like help with: None Currently or been in a relationship where the following occur: no concerns reported THRIVE Score: 0 AUDIT C Alcohol Use Questionnaire (AUDIT-C) 1. How often do you have a drink containing alcohol?: Never 3. How often do you have six or more drinks on one occasion?: Never Total Score: 0 VICTORIANO-7 AMB Questionnaire VICTORIANO-7 Date VICTORIANO - 7 assessed: 02/21/24 Feeling nervous, anxious, or on edge: 0 = Not at all Not being able to stop or control worryin = Not at all Worrying too much about different things: 0 = Not at all Trouble relaxin = Not at all Being so restless that it is hard to sit still: 0 = Not at all Becoming easily annoyed or irritable: 0 = Not at all Feeling afraid as if something awful might happen: 0 = Not at all Total VICTORIANO-7 score (0-4 normal; 5-9 mild; 10-14 moderate; 15-21 severe): 0 Source: Developed by Drs. Pete Chung, Iris Oh, Leon Lopez and colleagues, with an educational lamont from [employer]. Review of Systems Const All systems reviewed & are unremarkable except as noted in HPI and below Reports no additional complaints Eyes Reports no additional complaints ENT Reports no additional complaints Card Reports no additional complaints Resp Reports no additional complaints GI Reports no additional complaints Reports no additional complaints Physical exam (Primary Care) Vital Signs: Last Vital Signs Pulse 85 02/21/24 08:46 BP 126/76 02/21/24 08:46 Pulse Ox 95 02/21/24 08:46 Oxygen Delivery Method Room Air 02/21/24 08:46 BMI result Body Mass Index 43.1 Tobacco/Smoking Status: Tobacco use Status Tobacco use date assessed 02/21/24 02/21/24 08:53 Patient Tobacco Use Status Never used Tobacco 02/21/24 08:53 e-Cigarette/Vaping Use Never Used 02/21/24 08:45 PHQ-9: PHQ-9 Score PHQ-9: Total score 3 02/21/24 09:17 Depression Screening Interpretation: Negative Thrive Assessment: Date of Thrive Assessment Date Thrive assessed 02/21/24 02/21/24 08:53 Currently or been in a relationship where the following occur: no concerns reported Const General: no acute distress HENMT Head: Yes normal to inspection Ears: hearing grossly normal bilaterally Throat: Yes posterior oropharynx normal Eyes General: appearance normal, both eyes and all related structures Neck Neck: Yes supple Resp Effort & Inspection: normal respiratory effort Auscultation: clear to auscultation bilaterally Cardio Rhythm: regular rhythm Heart sounds: S1 normal heart sound present and S2 normal heart sound present GI Inspection: Yes normal to inspection Palpation (GI): Soft to palpation Percussion: Yes normal to percussion Auscultation: normal bowel sounds Assessment and Plan Assessment & Plan (1) DM type 2 (diabetes mellitus, type 2): Comment: pt declined GLP-1 receptor agonist Code(s): E11.9 - Type 2 diabetes mellitus without complications Plan: A1C 6.8, ADA diet, exercise, weight loss discussed, Pt declined GLP 1 receptor agonist, f/u 3 month (2) Obese: Code(s): E66.9 - Obesity, unspecified Plan: weight loss discussed, (3) Hyperlipidemia: Code(s): E78.5 - Hyperlipidemia, unspecified Plan: cont statin Orders: Orders Complete Blood Count Auto Diff 3 Months E11.9 - Type 2 diabetes mellitus without complications, E66.9 - Obesity, unspecified, E78.5 - Hyperlipidemia, unspecified Hemoglobin A1c 3 Months E11.9 - Type 2 diabetes mellitus without complications, E66.9 - Obesity, unspecified, E78.5 - Hyperlipidemia, unspecified Lipid Panel 3 Months E11.9 - Type 2 diabetes mellitus without complications, E66.9 - Obesity, unspecified, E78.5 - Hyperlipidemia, unspecified Comprehensive Hewitt. Panel Fast 3 Months E11.9 - Type 2 diabetes mellitus without complications, E66.9 - Obesity, unspecified, E78.5 - Hyperlipidemia, unspecified Microalbumin, Random (w Creat) 3 Months E11.9 - Type 2 diabetes mellitus without complications, E66.9 - Obesity, unspecified, E78.5 - Hyperlipidemia, unspecified Referrals Nutrition/Dietitian Referral E11.9 - Type 2 diabetes mellitus without complications, E66.9 - Obesity, unspecified Coding Level of Care Code Est Pt Level 4 (41947) Diagnoses DM type 2 (diabetes mellitus, type 2) E11.9 Obese E66.9 Hyperlipidemia E78.5
[2024-02-21 08:46] VITALS: BP 126/76; PULSE 85; O2SAT 95; BMI 43.1
== END 2024-02-21 12:01 | disposition home or self-care (01) ==
PROVIDERS: PCP Internal Medicine; Visit Provider Internal Medicine
DX: E11.9 Type 2 diabetes mellitus without complications (principal); E66.9 Obesity, unspecified; Z68.41 Body mass index [BMI] 40.0-44.9, adult; E78.5 Hyperlipidemia, unspecified
CPT/HCPCS: 99214

== ENCOUNTER 2024-04-12 08:15 | Outpatient (AMB) | payer OTHER, SELFPAY ==
[2024-04-12 08:33] VITALS: BMI 47.8
--- NOTE | 2024-04-12 08:33 | A.OFFVIS_ITS ---
VS Expanded 04/12/24 08:33 04/12/24 08:40 Height 5 ft 1.5 in 5 ft 1.5 in Weight 257 lb 4.471 oz 257 lb BMI 47.8 47.8 Intake Visit Reasons: T2DM, Obesity/LVM Allergies No Known Allergies Allergy (Verified 02/21/24 08:50) Nutrition Presentation Details: Pt presents for MNT for T2DM. Pt was referred by Dr. Corbett, primary care physician . BS Monitoring Most Recent Diabetes Results: Microalb/Creat Ratio 7.1 ug/mg cr (<30) 02/12/24 Cholesterol 140 mg/dL (<200) 02/12/24 HDL Cholesterol 35 mg/dL (>40) L 02/12/24 Triglycerides 129 mg/dL (<150) 02/12/24 Creatinine 0.64 mg/dL (0.5-1.4) 02/12/24 Blood Urea Nitrogen 20 mg/dL (9-16) H 02/12/24 Sodium 140 mmol/L (135-145) 02/12/24 Potassium 4.2 mmol/L (3.3-5.1) 02/12/24 Chloride 108 mmol/L (96-108) 02/12/24 Carbon Dioxide 22 mmol/L (22-29) 02/12/24 Calcium 9.0 mg/dL (8.4-10.2) 02/12/24 AST 24 U/L (5-31) 02/12/24 ALT 35 U/L (0-31) H 02/12/24 Total Protein 6.7 g/dL (6.5-8.0) 02/12/24 Albumin 4.0 g/dL (3.5-5.0) 02/12/24 ZKB-Aobjknr-Ta.Jeor Equation Height: 5 ft 1.5 in Weight: 257 lb Resting Metabolic Rate: 1689.60 Calculated Activity Level: Sedentary Calories Needed to Maintain Weight: 2026.52 Diagnosis Nutrition problem #1: excessive energy intake As related to (etiology) #1: diagnosis As evidenced by (sign/symptom) #1: knowledge deficit of diet Monitoring/Goals Nutrition problem monitoring: level of knowledge/skill [facility] Medical History Overweight Sleep apnea Osteopenia Annual physical exam (~06/11/23) Mammogram normal Normal Pap smear Hyperlipidemia DM type 2 (diabetes mellitus, type 2) Surgical History Hx of colonoscopy Status post surgical removal of malignant neoplasm of skin Surgical history unknown Family History Mother Diabetes Kidney failure HTN (hypertension) CHF (congestive heart failure) Father Heart problem Social History Household Members Other:: 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, 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, 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 Housing: House Alcohol intake: current Alcohol intake frequency: holidays/special occasions only Patient Tobacco Use Status: Never used Tobacco e-Cigarette/Vaping Use: Never Used Current occupational status: employed Cognitive needs: No Hearing needs: No Vision needs: Yes Assessment & Plan Assessment & Plan (1) DM type 2 (diabetes mellitus, type 2): Code(s): E11.9 - Type 2 diabetes mellitus without complications Category: Medical Plan: Wt: 117 Kg ( 03/2024 ) Est kcal needs as per MSJ: 1700 (40% carb, 30% protein/fat) Est fluid needs as per 25-30 ml/d: 3500 Est prot per day as per 1 g/kg bw: 117 Recommend fiber intake : 8-10 g per day and gradually increase to 25-28 g per day for women and 35-38 g for men or as tolerated Recommend sodium intake per day : less than 1500 mg less than 2000 mg Educated patient on: ( R = reviewed V = verbalizes understanding N/R = needs review N/A = not applicable * Food sources of carbohydrate, adequate serving sizes and its role in various health conditions: R * Differences between complex carbohydrates a simple carbohydrates, role of fiber in diet: R * Lean protein sources of foods: R * Differences between types of fats and role in diet (mono on saturated fat fatty acids, saturated fatty acids, trans fats): R basic * Food sources of sodium in salt and healthy modifications for heart health in kidney health: NR * Vitamins and minerals: R * Healthy plate method concept: R * Physical activity: Benefits a precaution: R V N/R * Hypoglycemia protocol (rule of 15): R V N/R * Dietary prevention of Hyperglycemia: R Patient Instructions: Reduce on total carbs to less than 60 g at meal following healthy plate method Keep hydrated by having water , herb infused water Coding Level of Care Code Nutr Indiv Intake (07662) Diagnoses DM type 2 (diabetes mellitus, type 2) E11.9 Time Spent (min) 30
[2024-04-20 21:45] VITALS: BMI 47.8
== END 2024-04-12 09:06 | disposition home or self-care (01) ==
PROVIDERS: PCP Internal Medicine; Visit Provider Dietitian, Registered
DX: E11.9 Type 2 diabetes mellitus without complications (principal)

== ENCOUNTER → 2024-04-12 08:15 | Outpatient (BNVA) | payer OTHER, SELFPAY | PROVIDERS: PCP Internal Medicine; Visit Provider Dietitian, Registered | DX: E11.9 Type 2 diabetes mellitus without complications (principal); Z71.3 Dietary counseling and surveillance | CPT/HCPCS: 97802 ==

== ENCOUNTER 2024-05-13 09:49 | Outpatient (REF) | payer OTHER, SELFPAY ==
[2024-05-13 11:29] LABS: MANUAL DIFF FLAG NO
[2024-05-13 11:35] LABS: Basophils Percent Auto 0.6 % (0-2); Eosinophils Absolute Auto 0.2 X10*3/uL (0.0-0.4); Eosinophils Percent Auto 4.1 % (0-4); Hematocrit 41.8 % (37.0-47.0); Hemoglobin 12.7 g/dl (12.0-16.0); Imm Gran Abs Auto 0.01 X10*3/uL (0.00-0.03); Imm Gran Pct Auto 0.2 % (0.0-0.4); Lymphocytes Absolute Auto 1.6 X10*3/uL (1.2-4.9); Lymphocytes Percent Auto 32.5 % (20-40); Mean Corpuscular HGB Conc 30.4 g/dl (31.0-35.0); Mean Corpuscular Hemoglobin 23.7 pg (27.0-33.0); Mean Platelet Volume 9.8 fL (9.4-12.3); Monocytes Absolute Auto 0.4 X10*3/uL (0.1-1.2); Monocytes Percent Auto 7.1 % (2-11); Neutrophils Absolute Auto 2.7 x10*3/uL (2.0-8.3); Neutrophils Percent Auto 55.5 % (45-73); Platelet Count 343 X10*3/uL (160-400); Red Blood Count 5.36 X10*6/uL (4.20-5.50); Red Cell Distribution Width 16.7 % (11.0-16.0); White Blood Count 4.9 X10*3/uL (4.8-10.8)
[2024-05-13 11:40] LABS: Estimated Average Glucose 154 mg/dL
[2024-05-13 11:55] LABS: Alanine Aminotransferase 35 U/L (0-31); Alkaline Phosphatase 90 U/L (39-117); Anion Gap 13 (12-20); Aspartate Amino Transferase 28 U/L (5-31); Bilirubin Total 0.6 mg/dL (0.0-1.0); Blood Urea Nitrogen 25 mg/dL (9-16); Calcium 8.9 mg/dL (8.4-10.2); Carbon Dioxide 24 mmol/L (22-29); Chloride 107 mmol/L (96-108); Cholesterol 165 mg/dL (<200); Estimated Glomerular Filt Rate > 60; Glucose Fasting 124 mg/dL (60-99); HDL Cholesterol 34 mg/dL (>40); LDL Cholesterol Calculated 92 mg/dL (<100); Potassium 4.1 mmol/L (3.3-5.1); Sodium 140 mmol/L (135-145); Total Protein 6.7 g/dL (6.5-8.0); Triglycerides 196 mg/dL (<150)
[2024-05-13 12:13] LABS: Creatinine Urine 92.78 mg/dL; Microalbum/Creatinine Ratio Ur 6.4 ug/mg cr (<30)
== END 2024-05-13 09:50 | disposition home or self-care (01) ==
LOC: HO.HMGCLDS 09:49
PROVIDERS: PCP Internal Medicine; Visit Provider Internal Medicine
DX: E11.9 Type 2 diabetes mellitus without complications (principal); E78.5 Hyperlipidemia, unspecified; E66.9 Obesity, unspecified
CPT/HCPCS: 36415; 80053; 80061; 82043; 82570; 83036; 85025

== ENCOUNTER 2024-05-30 08:17 | Outpatient (AMB) | payer OTHER, SELFPAY ==
[2024-05-30 08:32] VITALS: BMI 47.5
--- NOTE | 2024-05-30 08:32 | A.OFFVIS_ITS ---
VS Expanded 05/30/24 08:32 Height 5 ft 1.5 in Weight 255 lb 4.725 oz BMI 47.5 Intake Visit Reasons: T2DM/LVM Allergies No Known Allergies Allergy (Verified 02/21/24 08:50) Nutrition Presentation Details: Pt presents for MNT f/u for T2DM Pt reports working on meal modifications BS Monitoring Most Recent Diabetes Results: Microalb/Creat Ratio 6.4 ug/mg cr (<30) 05/13/24 Cholesterol 165 mg/dL (<200) 05/13/24 HDL Cholesterol 34 mg/dL (>40) L 05/13/24 Triglycerides 196 mg/dL (<150) H 05/13/24 Creatinine 0.71 mg/dL (0.5-1.4) 05/13/24 Blood Urea Nitrogen 25 mg/dL (9-16) H 05/13/24 Sodium 140 mmol/L (135-145) 05/13/24 Potassium 4.1 mmol/L (3.3-5.1) 05/13/24 Chloride 107 mmol/L (96-108) 05/13/24 Carbon Dioxide 24 mmol/L (22-29) 05/13/24 Calcium 8.9 mg/dL (8.4-10.2) 05/13/24 AST 28 U/L (5-31) 05/13/24 ALT 35 U/L (0-31) H 05/13/24 Total Protein 6.7 g/dL (6.5-8.0) 05/13/24 Albumin 4.0 g/dL (3.5-5.0) 05/13/24 [facility] Medical History Overweight Sleep apnea Osteopenia Annual physical exam (~06/11/23) Mammogram normal Normal Pap smear Hyperlipidemia DM type 2 (diabetes mellitus, type 2) Surgical History Hx of colonoscopy Status post surgical removal of malignant neoplasm of skin Surgical history unknown Family History Mother Diabetes Kidney failure HTN (hypertension) CHF (congestive heart failure) Father Heart problem Social History Household Members Other:: 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, 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, 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 Alcohol intake: current Alcohol intake frequency: holidays/special occasions only Patient Tobacco Use Status: Never used Tobacco e-Cigarette/Vaping Use: Never Used Current occupational status: employed Cognitive needs: No Hearing needs: No Vision needs: Yes Assessment & Plan Assessment & Plan (1) DM type 2 (diabetes mellitus, type 2): Code(s): E11.9 - Type 2 diabetes mellitus without complications Category: Medical Plan: Wt: 117 Kg ( 03/2024 ), 115.9 kg(06/14) Est kcal needs as per MSJ: 1700 (40% carb, 30% protein/fat) Est fluid needs as per 25-30 ml/d: 3500 Est prot per day as per 1 g/kg bw: 117 Recommend fiber intake : 8-10 g per day and gradually increase to 25-28 g per day for women and 35-38 g for men or as tolerated Recommend sodium intake per day : less than 1500 mg less than 2000 mg Educated patient on: ( R = reviewed V = verbalizes understanding N/R = needs review N/A = not applicable * Food sources of carbohydrate, adequate serving sizes and its role in various health conditions: R * Differences between complex carbohydrates a simple carbohydrates, role of fiber in diet: R * Lean protein sources of foods: R * Differences between types of fats and role in diet (mono on saturated fat fatty acids, saturated fatty acids, trans fats): R basic * Food sources of sodium in salt and healthy modifications for heart health in kidney health: NR * Vitamins and minerals: R * Healthy plate method concept: R * Physical activity: Benefits a precaution: R V N/R * Hypoglycemia protocol (rule of 15): R V N/R * Dietary prevention of Hyperglycemia: R Patient Instructions: Continue working on following healthy plate method Continue working reducing on sugars (pastries, sugars added to foods) Engage in physical activity: walking as able, keeping hydrated by having water with meals/snack Coding Level of Care Code Nutr Indiv Subseq (57338) Diagnoses DM type 2 (diabetes mellitus, type 2) E11.9 Time Spent (min) 30
== END 2024-05-30 09:04 | disposition home or self-care (01) ==
PROVIDERS: PCP Internal Medicine; Visit Provider Dietitian, Registered
DX: E11.9 Type 2 diabetes mellitus without complications (principal)

== ENCOUNTER → 2024-05-30 08:17 | Outpatient (BNVA) | payer OTHER, SELFPAY | PROVIDERS: PCP Internal Medicine; Visit Provider Dietitian, Registered | DX: E11.9 Type 2 diabetes mellitus without complications (principal); Z71.3 Dietary counseling and surveillance | CPT/HCPCS: 97803 ==

== ENCOUNTER 2024-07-13 12:33 | Outpatient (AMB) | payer OTHER, SELFPAY ==
[2024-07-13 12:35] VITALS: BP 114/66; PULSE 86; O2SAT 97; BMI 48.0
--- NOTE | 2024-07-13 12:35 | MHC.PC.OV ---
Vital Signs 07/13/24 12:35 Height 5 ft 1.5 in Weight 258 lb BMI 48.0 BP 114/66 Blood Pressure Location Rt brachial Position Sitting Pulse 86 Pulse Source Pulse Oximeter Pulse Oximetry (%) 97 Oxygen Delivery Method Room Air Intake Visit Reasons: Follow up DM Intake Note: Pt is here today for a follow up visit on DM. Allergies No Known Allergies Allergy (Verified 07/13/24 12:40) Medication List - Last Reconciled 07/13/24 by Michaela Corbett MD aspirin 81 mg PO DAILY atorvastatin 20 mg PO DAILY blood sugar diagnostic (FreeStyle Lite Strips) use twice daily to test blood sugar blood-glucose meter (FreeStyle Lite Meter kit) As directed empagliflozin (Jardiance) 25 mg PO QAM lancets (FreeStyle Lancets) use 1 strip to test blood sugar twice a day metformin ER 1,000 mg (2 x 500 mg) PO BID Tobacco use date assessed: 07/13/24 Dental Screening Dental Screen Date: 02/21/24 HPI Follow up DM HPI Details Pt ppresents for f/u DM2 and hyperlipid, stable on meds. 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 1. Little interest or pleasure in doing things: not at all 2. Feeling down, depressed, or hopeless: not at all 3. Trouble falling or staying asleep, or sleeping too much: not at all 4. Feeling tired or having little energy: not at all 5. Poor appetite or overeating: not at all 6. Feeling bad about yourself - or that you are a failure or have let yourself or your family down: not at all 7. Trouble concentrating on things, such as reading the newspaper or watching television: not at all 8. Moving or speaking so slowly that other people could have noticed. Or the opposite - being so fidgety or restless that you have been moving around a lot more than usual: not at all 9. Thoughts that you would be better off or of hurting yourself in some way: not at all Total score: 0 Depression Screening Interpretation: Negative Depression Screening Done: Yes 66931 - PHQ-9 Billing: Yes Source: Developed by Drs. Pete Chung, Iris Oh, Leon Lopez and colleagues, with an educational lamont from [employer]. Thrive Questionnaire Date Thrive assessed: 07/13/24 I am a: Patient What is your living situation today?: I have a steady place to live Within the past 12 months, did the food you bought not last and you didn't have the money to get more?: Never true Within the past 12 months, did you worry whether your food would run out before you got money to buy more?: Never true Do you have trouble paying for medicines?: No Do you have trouble getting transportation to medical appointments?: No Do you have trouble paying your heating and electricity bill?: No Do you have trouble taking care of your child, family member or friend?: No Do you have trouble with day-to-day activities such as bathing, preparing meals, shopping, managing finances, etc.?: No Are you currently unemployed and looking for a job?: No Are you interested in more education?: No Please select the resources that you would like help with: None Currently or been in a relationship where the following occur: No concerns reported THRIVE Score: 0 AUDIT C Alcohol Use Questionnaire (AUDIT-C) 1. How often do you have a drink containing alcohol?: Never 3. How often do you have six or more drinks on one occasion?: Never Total Score: 0 VICOTRIANO-7 AMB Questionnaire VICTORIANO-7 Date VICTORIANO - 7 assessed: 07/13/24 Feeling nervous, anxious, or on edge: 0 = Not at all Not being able to stop or control worryin = Not at all Worrying too much about different things: 0 = Not at all Trouble relaxin = Not at all Being so restless that it is hard to sit still: 0 = Not at all Becoming easily annoyed or irritable: 0 = Not at all Feeling afraid as if something awful might happen: 0 = Not at all Total VICTORIANO-7 score (0-4 normal; 5-9 mild; 10-14 moderate; 15-21 severe): 0 Source: Developed by Drs. Pete Chung, Iris Oh, Leon Lopez and colleagues, with an educational lamont from [employer]. VICTORIANO-7 Assessment Billing VICTORIANO-7 Assessment Tool: VICTORIANO-7 Assessment 45774 Review of Systems Const All systems reviewed & are unremarkable except as noted in HPI and below Eyes Reports no additional complaints ENT Reports no additional complaints Card Reports no additional complaints Resp Reports no additional complaints GI Reports no additional complaints Reports no additional complaints Physical exam (Primary Care) Vital Signs: Last Vital Signs Pulse 86 07/13/24 12:35 BP 114/66 07/13/24 12:35 Pulse Ox 97 07/13/24 12:35 Oxygen Delivery Method Room Air 07/13/24 12:35 BMI result Body Mass Index 48.0 Tobacco/Smoking Status: Tobacco use Status Tobacco use date assessed 07/13/24 07/13/24 12:36 Patient Tobacco Use Status Never used Tobacco 07/13/24 12:36 e-Cigarette/Vaping Use Never Used 07/13/24 12:35 PHQ-9: PHQ-9 Score PHQ-9: Total score 0 07/13/24 12:42 Depression Screening Interpretation: Negative Thrive Assessment: Date of Thrive Assessment Date Thrive assessed 07/13/24 07/13/24 12:42 Currently or been in a relationship where the following occur: No concerns reported Const General: no acute distress HENMT Head: Yes normal to inspection Mouth: Normal oral and palatal mucosa present Throat: Yes posterior oropharynx normal Eyes General: appearance normal, both eyes and all related structures Neck Neck: Yes supple Resp Effort & Inspection: normal respiratory effort Auscultation: clear to auscultation bilaterally Cardio Rhythm: regular rhythm Heart sounds: S1 normal heart sound present and S2 normal heart sound present GI Inspection: Yes normal to inspection Palpation (GI): Soft to palpation Percussion: Yes normal to percussion Assessment and Plan Assessment & Plan (1) DM type 2 (diabetes mellitus, type 2): Comment: pt declined GLP 1 AGONIST Code(s): E11.9 - Type 2 diabetes mellitus without complications Plan: A1C is 7.0, ADA diet, increase exercise, weight loss discussed, continue current medication follow-up in 4 months with a fasting labs (2) Hyperlipidemia: Code(s): E78.5 - Hyperlipidemia, unspecified Plan: Continue statin (3) Overweight: Code(s): E66.3 - Overweight Plan: Increase physical activity decrease caloric intake weight loss discussed with the patient. Orders: Orders Complete Blood Count Auto Diff 4 Months E11.9 - Type 2 diabetes mellitus without complications, E78.5 - Hyperlipidemia, unspecified Lipid Panel 4 Months E11.9 - Type 2 diabetes mellitus without complications, E78.5 - Hyperlipidemia, unspecified Comprehensive [place]. Panel Fast 4 Months E11.9 - Type 2 diabetes mellitus without complications, E78.5 - Hyperlipidemia, unspecified Microalbumin, Random (w Creat) 4 Months E11.9 - Type 2 diabetes mellitus without complications, E78.5 - Hyperlipidemia, unspecified Medications: Refilled atorvastatin 20 mg PO DAILY 90 tabs 3RF E78.5 - Hyperlipidemia, unspecified Coding Level of Care Code Est Pt Level 3 (63667) Diagnoses DM type 2 (diabetes mellitus, type 2) E11.9 Hyperlipidemia E78.5 Overweight E66.3 Additional Codes VICTORIANO-7 Assessment Billing - VICTORIANO-7 Assessment Tool: VICTORIANO-7 Assessment 69101 ([id number])
== END 2024-07-13 13:18 | disposition home or self-care (01) ==
PROVIDERS: PCP Internal Medicine; Visit Provider Internal Medicine
DX: E11.69 Type 2 diabetes mellitus with other specified complication (principal); E78.5 Hyperlipidemia, unspecified; E66.01 Morbid (severe) obesity due to excess calories; Z68.42 Body mass index [BMI] 45.0-49.9, adult
CPT/HCPCS: 99213

== ENCOUNTER 2024-07-27 08:17 | Outpatient (AMB) | payer OTHER, SELFPAY ==
[2024-07-27 08:35] VITALS: BMI 48.4
--- NOTE | 2024-07-27 08:35 | A.OFFVIS_ITS ---
VS Expanded 07/27/24 08:35 Height 5 ft 1.5 in Weight 260 lb 9.382 oz BMI 48.4 Intake Visit Reasons: T2DM/COMFIRMED Allergies No Known Allergies Allergy (Verified 07/13/24 12:40) Nutrition Presentation Details: Pt presents for MNT f/u for T2DM challenges int he month of June , choosing higher calorie foods, eating out BS Monitoring Most Recent Diabetes Results: Microalb/Creat Ratio 6.4 ug/mg cr (<30) 05/13/24 Cholesterol 165 mg/dL (<200) 05/13/24 HDL Cholesterol 34 mg/dL (>40) L 05/13/24 Triglycerides 196 mg/dL (<150) H 05/13/24 Creatinine 0.71 mg/dL (0.5-1.4) 05/13/24 Blood Urea Nitrogen 25 mg/dL (9-16) H 05/13/24 Sodium 140 mmol/L (135-145) 05/13/24 Potassium 4.1 mmol/L (3.3-5.1) 05/13/24 Chloride 107 mmol/L (96-108) 05/13/24 Carbon Dioxide 24 mmol/L (22-29) 05/13/24 Calcium 8.9 mg/dL (8.4-10.2) 05/13/24 AST 28 U/L (5-31) 05/13/24 ALT 35 U/L (0-31) H 05/13/24 Total Protein 6.7 g/dL (6.5-8.0) 05/13/24 Albumin 4.0 g/dL (3.5-5.0) 05/13/24 [facility] Medical History (Updated 07/27/24 @ 09:02 by Chelsey Guerra, RD, LDN) Overweight Sleep apnea Osteopenia Annual physical exam (~06/11/23) Mammogram normal Normal Pap smear Hyperlipidemia DM type 2 (diabetes mellitus, type 2) Surgical History Hx of colonoscopy Status post surgical removal of malignant neoplasm of skin Surgical history unknown Family History Mother Diabetes Kidney failure HTN (hypertension) CHF (congestive heart failure) Father Heart problem Social History Household Members Other:: 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, 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, 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 Housing: House Alcohol intake: current Alcohol intake frequency: holidays/special occasions only Patient Tobacco Use Status: Never used Tobacco e-Cigarette/Vaping Use: Never Used service: No Current occupational status: employed Cognitive needs: No Hearing needs: No Vision needs: Yes Assessment & Plan Assessment & Plan (1) DM type 2 (diabetes mellitus, type 2): Code(s): E11.9 - Type 2 diabetes mellitus without complications Category: Medical Plan: Wt: 117 Kg ( 03/2024 ), 115.9 kg(06/14) Est kcal needs as per MSJ: 1700 (40% carb, 30% protein/fat) Est fluid needs as per 25-30 ml/d: 3500 Est prot per day as per 1 g/kg bw: 117 Recommend fiber intake : 8-10 g per day and gradually increase to 25-28 g per day for women and 35-38 g for men or as tolerated Recommend sodium intake per day : less than 2000 mg Educated patient on: ( R = reviewed V = verbalizes understanding N/R = needs review N/A = not applicable * Food sources of carbohydrate, adequate serving sizes and its role in various health conditions: R * Differences between complex carbohydrates a simple carbohydrates, role of fiber in diet: R * Lean protein sources of foods: R * Differences between types of fats and role in diet (mono on saturated fat fatty acids, saturated fatty acids, trans fats): R basic * Food sources of sodium in salt and healthy modifications for heart health in kidney health: NR * Vitamins and minerals: R * Healthy plate method concept: R * Physical activity: Benefits a precaution: R * Dietary prevention of Hyperglycemia: R Patient Instructions: Keep hydrated, choose low sugar beverages Resume working on reducing on high fat foods (choose baked protein and starches , ask for butter/sour cream /sauces/dressings on the side Coding Level of Care Code Nutr Indiv Subseq (21547) Diagnoses DM type 2 (diabetes mellitus, type 2) E11.9 Time Spent (min) 30
== END 2024-07-27 09:02 | disposition home or self-care (01) ==
PROVIDERS: PCP Internal Medicine; Visit Provider Dietitian, Registered
DX: E11.9 Type 2 diabetes mellitus without complications (principal)

== ENCOUNTER → 2024-07-27 08:17 | Outpatient (BNVA) | payer OTHER, SELFPAY | PROVIDERS: PCP Internal Medicine; Visit Provider Dietitian, Registered | DX: E11.9 Type 2 diabetes mellitus without complications (principal); Z71.3 Dietary counseling and surveillance | CPT/HCPCS: 97803 ==

== ENCOUNTER 2024-10-21 09:20 | Outpatient (REF) | payer OTHER, SELFPAY ==
[2024-10-21 11:13] LABS: MANUAL DIFF FLAG NO
[2024-10-21 11:21] LABS: Basophils Percent Auto 0.7 % (0-2); Eosinophils Absolute Auto 0.2 X10*3/uL (0.0-0.4); Eosinophils Percent Auto 3.1 % (0-4); Hematocrit 43.6 % (37.0-47.0); Hemoglobin 13.3 g/dl (12.0-16.0); Imm Gran Abs Auto 0.01 X10*3/uL (0.00-0.03); Imm Gran Pct Auto 0.2 % (0.0-0.4); Lymphocytes Percent Auto 35.5 % (20-40); Mean Corpuscular HGB Conc 30.5 g/dl (31.0-35.0); Mean Corpuscular Volume 78.7 fL (80.0-98.0); Mean Platelet Volume 9.4 fL (9.4-12.3); Monocytes Absolute Auto 0.4 X10*3/uL (0.1-1.2); Monocytes Percent Auto 7.4 % (2-11); Neutrophils Absolute Auto 2.9 x10*3/uL (2.0-8.3); Neutrophils Percent Auto 53.1 % (45-73); Platelet Count 364 X10*3/uL (160-400); Red Blood Count 5.54 X10*6/uL (4.20-5.50); Red Cell Distribution Width 16.4 % (11.0-16.0); White Blood Count 5.5 X10*3/uL (4.8-10.8)
[2024-10-21 11:31] LABS: Creatinine Urine 79.56 mg/dL; Microalbum/Creatinine Ratio Ur 13.8 ug/mg cr (<30)
[2024-10-21 11:35] LABS: Alanine Aminotransferase 47 U/L (0-31); Albumin Level 4.2 g/dL (3.5-5.0); Alkaline Phosphatase 104 U/L (39-117); Anion Gap 14 (12-20); Aspartate Amino Transferase 39 U/L (5-31); Bilirubin Total 0.6 mg/dL (0.0-1.0); Blood Urea Nitrogen 18 mg/dL (9-16); Calcium 8.8 mg/dL (8.4-10.2); Carbon Dioxide 24 mmol/L (22-29); Chloride 106 mmol/L (96-108); Cholesterol 139 mg/dL (<200); Estimated Glomerular Filt Rate > 60; Glucose Fasting 139 mg/dL (60-99); HDL Cholesterol 33 mg/dL (>40); LDL Cholesterol Calculated 82 mg/dL (<100); Potassium 4.2 mmol/L (3.3-5.1); Sodium 140 mmol/L (135-145); Total Protein 6.9 g/dL (6.5-8.0); Triglycerides 124 mg/dL (<150)
== END 2024-10-21 09:21 | disposition home or self-care (01) ==
LOC: HO.HMGCLDS 09:20
PROVIDERS: PCP Internal Medicine; Visit Provider Internal Medicine
DX: E11.9 Type 2 diabetes mellitus without complications (principal); E78.5 Hyperlipidemia, unspecified
CPT/HCPCS: 36415; 80053; 80061; 82043; 82570; 85025

== ENCOUNTER 2024-10-26 11:21 | Outpatient (AMB) | payer OTHER, SELFPAY ==
[2024-10-26 11:39] VITALS: BMI 47.2
--- NOTE | 2024-10-26 11:39 | MHC.AMNUTRGE ---
VS Expanded 10/26/24 11:39 Height 5 ft 1.5 in Weight 253 lb 15.56 oz BMI 47.2 Intake Visit Reasons: T2DM Allergies No Known Allergies Allergy (Verified 11/02/24 10:31) Nutrition Presentation Details: Pt presents for MNT for T2DM Pt report working on reduction, keeping sedentary majority of the time, contemplating walking BS Monitoring Most Recent Diabetes Results: Microalb/Creat Ratio 13.8 ug/mg cr (<30) 10/21/24 Cholesterol 139 mg/dL (<200) 10/21/24 HDL Cholesterol 33 mg/dL (>40) L 10/21/24 Triglycerides 124 mg/dL (<150) 10/21/24 Creatinine 0.71 mg/dL (0.5-1.4) 10/21/24 Blood Urea Nitrogen 18 mg/dL (9-16) H 10/21/24 Sodium 140 mmol/L (135-145) 10/21/24 Potassium 4.2 mmol/L (3.3-5.1) 10/21/24 Chloride 106 mmol/L (96-108) 10/21/24 Carbon Dioxide 24 mmol/L (22-29) 10/21/24 Calcium 8.8 mg/dL (8.4-10.2) 10/21/24 AST 39 U/L (5-31) H 10/21/24 ALT 47 U/L (0-31) H 10/21/24 Total Protein 6.9 g/dL (6.5-8.0) 10/21/24 Albumin 4.2 g/dL (3.5-5.0) 10/21/24 [facility] Medical History (Updated 11/02/24 @ 11:07 by Michaela Corbett MD) Overweight Sleep apnea Osteopenia Annual physical exam (~06/11/23) Mammogram normal Normal Pap smear Hyperlipidemia DM type 2 (diabetes mellitus, type 2) Surgical History Hx of colonoscopy Status post surgical removal of malignant neoplasm of skin Surgical history unknown Family History Mother Diabetes Kidney failure HTN (hypertension) CHF (congestive heart failure) Father Heart problem Social History Household Members Other:: 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, 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, 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 Alcohol intake: current Alcohol intake frequency: holidays/special occasions only Patient Tobacco Use Status: Never used Tobacco e-Cigarette/Vaping Use: Never Used service: No Current occupational status: employed Cognitive needs: No Hearing needs: No Vision needs: Yes Assessment & Plan Assessment & Plan (1) DM type 2 (diabetes mellitus, type 2): Code(s): E11.9 - Type 2 diabetes mellitus without complications Category: Medical Plan: Wt: 117 Kg ( 03/2024 ), 115.9 kg(06/14), 11/14 Est kcal needs as per MSJ: 1700 (40% carb, 30% protein/fat) Est fluid needs as per 25-30 ml/d: 3500 Est prot per day as per 1 g/kg bw: 117 Recommend fiber intake : 8-10 g per day and gradually increase to 25-28 g per day for women and 35-38 g for men or as tolerated Recommend sodium intake per day : less than 2000 mg Educated patient on: ( R = reviewed V = verbalizes understanding N/R = needs review N/A = not applicable Food sources of carbohydrate, adequate serving sizes and its role in various health conditions: R Differences between complex carbohydrates a simple carbohydrates, role of fiber in diet: R Lean protein sources of foods: R Differences between types of fats and role in diet (mono on saturated fat fatty acids, saturated fatty acids, trans fats): R basic Food sources of sodium in salt and healthy modifications for heart health in kidney health: NR Vitamins and minerals: R Healthy plate method concept: R Physical activity: Benefits a precaution: R Dietary prevention of Hyperglycemia: R Patient Instructions: Engage in physical activity, chair exercises, walking , start with 10 minutes and gradually increase to 30 minutes as tolerated, unless medically advised by MD Reduce on fats in foods (butter/creams, sauces, cheese sauces as examples) Coding Level of Care Code Nutr Indiv Subseq (58140) Diagnoses DM type 2 (diabetes mellitus, type 2) E11.9 Time Spent (min) 30
--- OUTSIDE RECORDS SUMMARY | 2024-11-01 01:56 | XMS_ITS | Patient Health Record ---
Author Organization [facility] Address [address] [place] [address] Care Team Providers Care Mending Carrier Name Role Phone Michaela Corbett MD Primary Care Provider Unavaila Evelio Perez Unavailable [phone] Allergies No Known Allergies Results Component Value Reference Range Notes HEMOGLOBIN A1C (GLYCOHEMOGLO BIN) Reviewed date:12/15/2023 02:22:44 PM Interpretation: Performing Lab: Notes/Report: HEMOGLOBIN A1C % (HH) 6.5 Reason For Referral No Information Medications Medication SIG (Take, Route, Frequency, Duration) Notes Start Date End Date Status Atorvastatin Calcium 20 MG 1 tablet Oral ly Once a day for 30 day(s) Active Jardiance 25 MG 1 tablet Orally Once a day for 30 day(s) Active Extra Depth Orthopedic Shoes, (1) Pair With (3) Pair Custom Heat Molded Multidensity Innersoles Dx: NIDDM/PVD(E11.51), Hammertoe Foot Deformity(M20.41,M20.42), Preulcerative Skin Lesion(s)(L85.1) Wear Daily for 365 days 12/15/2023 Active metFORMIN HCl 500 MG 1 tablet with a nettie l Orally Once a day for 30 day(s) Active Social History Tobacco Use: Social History Observation Description Date Details (start date - stop date) Never Smoker NA - NA Tobacco Use/Smoking Question Answer Notes Are you a: nonsmoker Additional Findings: Tobacco Non-User Current no n-smoker Alcohol Screen Question Answer Notes Did you have a drink containing alcohol in the p ast year? No Points 0 Interpretation Negative Tobacco use other than smoking: Question Answer Notes Are you an other tobacco user? No Problems Problem Type SNOMED Code ICD Code Onset Dates Problem Status W/U Status Risk Notes Problem Acquired hammer toe of right foot (84691560679512 05) Other hammer toe(s) (acquired), right foot (M20.41) Active confirmed Problem Type 2 diabetes mellitus with peripheral angiopathy (625853949) Type 2 diabetes mellitus with diabetic peripheral angiopathy without gangrene (E11.51) Active confirmed Problem Acquired hammer toe of left foot (51085484334415 03) Other hammer toe(s) (acquired), left foot (M20.42) Active confirmed Vital Signs Height 5ft 1in in 01/12/2024 Weight 259 lbs 01/12/2024 BMI 48.93 kg/m2 01/12/2024 Procedures Procedure Date Ordered Date Performed Result Body Sit e 99680-BTDTDGM NAIL, 6 OR MORE 12/15/2023 N/A 57670-LTWH SKIN LESIONS, 2 TO 4 12/15/2023 N/A 60002-Biozkybc Plate 01/12/2024 N/A 59501-Qdhjqmgw Plate Each Additional 01/12/2024 N/A Encounters Encounter Location Date Provider Diagnosis [facility] [address] 12/15/2023 Evelio Mullen Type 2 diabetes mellitus with diabetic peripheral angiopathy without gangrene E11.51 ; Tinea unguium B35.1 ; Pain in right toe(s) M79.674 ; Pain in left toe(s) M79.675 ; Other hammer toe(s) (acquired), left foot M20.42 and Other hammer toe(s) (acquired), right foot M20.[address] [facility] [address] 01/12/2024 Evelio Mullen Ingrown nail L60.0 [facility] [place] [address] [place] [address] 12/16/2023 Evelio Mullen [facility] [address] 01/31/2024 [facility] [place] [address] [address] 02/01/2024 [facility] [place] [address] [address] 03/01/2024 [facility] [address] [address] 03/27/2024 [facility] Encounter Date Diagnosis (ICD Code) Assessment Notes Treatment Notes Treatment Clinical Notes Section Notes 12/15/2023 Type 2 diabetes mellitus with diabetic peripheral angiopathy without gangrene (ICD-10 - E11.51) 01/12/2024 Ingrown nail (ICD-10 - L60.0) 12/15/2023 Tinea unguium (ICD-10 - B35.1) 12/15/2023 Pain in right toe(s) (ICD-10 - M79.674) 12/15/2023 Pain in left toe(s) (ICD-10 - M79.675) 12/15/2023 Other hammer toe(s) (acquired), left foot (ICD-10 - M20.42) 12/15/2023 Other hammer toe(s) (acquired), right foot (ICD-10 - M20.41) Patient Educated with: DIABETIC FOOT CARE INSTRUCTIONS.p df (DIABETIC FOOT CARE INSTRUCTIONS.p df) Plan Of Treatment Pending Test Test Name Order Date 95275-XUJFFXA NAIL, 6 OR MORE 12/15/2023 77212-Afrsiowl Plate 01/12/2024 47291-Ydmsaszk Plate Each Additional 67756-UNDB SKIN LESIONS, 2 TO 4 12/15/19 Insurance Providers Payer Name Payer Address Payer Phone Subscriber Number Group Number Insured Name Patient Relationship to Insured Coverage Start Date Coverage End Date [facility] [address] [facility] [place] [id number] Komal Corona Self - patient is the insured Medical (General) History Medical History History ICD Code Diabetic CAD Surgical History Surgery Date(Month/Year)
--- OUTSIDE RECORDS SUMMARY | 2024-11-01 01:56 | XMS_ITS ---
Author Organization [facility] Address [address] [facility] [place] [address] Care Team Providers Care Spice Fumigator Name Role Phone Michaela Corbett MD Primary Care Provider Unavaila Evelio Perez Unavailable [phone] REASON FOR VISIT Fee for records request? Encounters Encounter [facility] Date [facility] [address] [address] 03/27/2024 Evelio Mullen Plan Of Treatment No Information Progress Notes * Gisselle CORONAeDOB: 4 (58 yo F)Acc No.[id number]:03/27/2024 Patient:?Komal Corona :1965???Age:58 Y???Sex:Female Address:[address] [place] [address], [address] * true * Date:? Generated for Printi muriel/Layla/eTransmitting on:?11/01/2024 01:55 AM EST
--- OUTSIDE RECORDS SUMMARY | 2024-11-01 01:56 | XMS_ITS ---
Author Name [facility] Organization Unknown History of Medication Use Medication Directions Dispensed Refills Start Date End Date Status amoxicillin 500 mg capsule TAKE ONE CAPSULE BY MOUTH THREE TIMES A DAY 4 active triamcinolone acetonide 40 mg/mL suspension for injection Take 40 mg by injection route. 4 active ibuprofen 600 mg tablet TAKE ONE TABLET BY MOUTH EVERY 4 TO 6 HOURS NEEDED 4 active lidocaine (PF) 100 mg/5 mL (2 %) injection syringe Take 4 mL by injection route. 4 active Marcaine (PF) 0.5 % (5 mg/mL) injection solution Take 4 mL by injection route. 4 active Jardiance 25 mg tablet TAKE ONE TABLET BY MOUTH EVERY DAY IN THE MORNING 3 active FreeStyle Lancets 28 gauge USE ONE STRIP TO TEST BLOOD SUGARS TWO TIMES A DAY 3 active Kenalog 40 mg/mL suspension for injection Take 1 mL by injection route. 3 active Jardiance 25 mg tablet TAKE ONE TABLET BY MOUTH EVERY MORNING 3 active metformin ER 500 mg tablet,extended release 24 hr TAKE TWO TABLETS BY MOUTH TWICE A DAY 3 active bisacodyl 5 mg tablet,delayed release TAKE 2 TABLETS BY MOUTH AT NOON THE DAY BEFORE YOUR COLONOSCOPY 3 completed cyclobenzaprine 5 mg tablet TAKE ONE TABLET BY MOUTH THREE TIMES A DAY 3 active bisacodyl 5 mg tablet,delayed release TAKE 2 TABLETS BY MOUTH AT NOON THE DAY BEFORE YOUR COLONOSCOPY 3 active cyclobenzaprine 5 mg tablet TAKE ONE TABLET BY MOUTH THREE TIMES A DAY 3 completed benzonatate 100 mg capsule TAKE ONE CAPSULE BY MOUTH TWO TO THREE TIMES A DAY NEEDED FOR COUGH 3 completed atorvastatin 20 mg tablet TAKE ONE TABLET BY MOUTH EVERY DAY 3 active lidocaine (PF) 10 mg/mL (1 %) injection solution 3 active benzonatate 100 mg capsule TAKE ONE CAPSULE BY MOUTH TWO TO THREE TIMES A DAY NEEDED FOR COUGH 3 active lidocaine (PF) 10 mg/mL (1 %) injection solution Take 2 mL by injection route. 3 active polyethylene glycol 3350 17 gram/dose oral powder TAKE 238 GRAMS ORALLY ONCE DIRECTED BY THE GASTROENTEROLOGY DEPARTMENT AT THE [facility] 3 completed polyethylene glycol 3350 17 gram/dose oral powder TAKE 238 GRAMS ORALLY ONCE DIRECTED BY THE GASTROENTEROLOGY DEPARTMENT AT THE [facility] 3 active prednisone 50 mg tablet TAKE ONE TABLET BY MOUTH EVERY DAY 3 completed FreeStyle Lite Strips USE TWICE DAILY TO TEST BLOOD SUGARS 3 active prednisone 50 mg tablet TAKE ONE TABLET BY MOUTH EVERY DAY 3 active azithromycin 250 mg tablet TAKE TWO TABLETS BY MOUTH ONE DOSE ON THE FIRST DAY, THEN TAKE ONE TABLET DAILY THEREAFTER. 3 active Kenalog 40 mg/mL suspension for injection 3 active atorvastatin 20 mg tablet TAKE ONE TABLET BY MOUTH EVERY DAY 3 active metformin ER 500 mg tablet,extended release 24 hr TAKE TWO TABLETS BY MOUTH TWICE A DAY 3 active azithromycin 250 mg tablet TAKE TWO TABLETS BY MOUTH ONE DOSE ON THE FIRST DAY, THEN TAKE ONE TABLET DAILY THEREAFTER. 3 completed Problems Problem Status Onset Date Problem Type Date of Resoluti on Source Effusion of joint active 2023-05-07 ProblemAct [facility] Pain of left calf active 2023-04-28 ProblemAct [facility] Effusion of joint of left knee active 2023-05-07 ProblemAct [facility] Osteoarthritis of left knee joint active 2023-05-21 ProblemAct [facility] Type 2 diabetes mellitus active 2023-04-28 ProblemAct [facility] Pain in left lower limb active 2023-04-28 ProblemAct [facility]
--- OUTSIDE RECORDS SUMMARY | 2024-11-01 01:56 | XMS_ITS ---
Author Organization [facility] Address [address] [facility] [place] [place] [address] Care Team Providers Care Process Maintenance Technician Name Role Phone Michaela Corbett MD Primary Care Provider Unavaila Evelio Perez Unavailable [phone] REASON FOR VISIT Billing Issue Encounters Encounter Location Date Provider Diagnosis [facility] [address] [place] [phone] 03/01/2024 Evelio Mullen Plan Of Treatment No Information Progress Notes * Gisselle CORONAeDOB: 4 (58 yo F)Acc No.[id number]:03/01/2024 Patient:?ChloeKomal :1965???Age:58 Y???Sex:Female Address:[address] [place] [address], [address] * true * Date:? Generated for Printi ng/Layla/eTransmitting on:?11/01/2024 01:56 AM EST
--- OUTSIDE RECORDS SUMMARY | 2024-11-01 01:56 | XMS_ITS ---
Author Organization [facility] Address [address] [facility] [address] Care Team Providers Care Dough Brake Machine Operator Name Role Phone Michaela Corbett MD Primary Care Provider Unavaila Evelio Perez Unavailable [phone] Encounters Encounter Location Date [facility] [address] [place] [phone] 03/01/2024 Evelio Mullen Plan Of Treatment No Information Progress Notes * Lana CALDERONOB: 4 (59 yo F)Acc No.[id number]:03/01/2024 Progress Note Patient:?Komal CALDERON Provider:?Evelio Mullen DPM :1965???Age:58 Y???Sex:Female D ate:03/01/2024 Address:[address] [place], [place] [phone] Pcp:Michaela Corbett MD Subjective: * Chief Complaints: * ??? * Medical History:? Objective: * Vitals:? Assessment: Plan: * Treatment: * Images: * The named appointment provid er may or may not be the originator of this progress note, and it is not deemed complete until electronically signed by the appointment provider. Sign off status: Pending * Provider:?Evelio Mullen DPM Date:?2023 Generated for Luisa llamas/Layla/Yvanitting on:?11/01/2024 01:55 AM EST
== END 2024-10-26 12:06 | disposition home or self-care (01) ==
PROVIDERS: PCP Internal Medicine; Visit Provider Dietitian, Registered
DX: E11.9 Type 2 diabetes mellitus without complications (principal)

== ENCOUNTER → 2024-10-26 11:21 | Outpatient (BNVA) | payer OTHER, SELFPAY | PROVIDERS: PCP Internal Medicine; Visit Provider Dietitian, Registered | DX: E11.9 Type 2 diabetes mellitus without complications (principal); Z71.3 Dietary counseling and surveillance | CPT/HCPCS: 97803 ==

== ENCOUNTER 2024-11-02 10:09 | Outpatient (AMB) | payer OTHER, SELFPAY ==
[2024-11-02 10:19] VITALS: BP 134/76; PULSE 86; O2SAT 95; BMI 47.2
--- NOTE | 2024-11-02 10:19 | A.OFFPC_ITS ---
Vital Signs 11/02/24 10:19 Height 5 ft 1.5 in Weight 254 lb BMI 47.2 BP 134/76 Blood Pressure Location Lt brachial Position Sitting Pulse 86 Pulse Source Pulse Oximeter Pulse Oximetry (%) 95 Oxygen Delivery Method Room Air Intake Visit Reasons: PE/reschedule Intake Note: Pt is here today for PE. Allergies No Known Allergies Allergy (Verified 11/02/24 10:31) Medication List - Last Reconciled 11/02/24 by Michaela Corbett MD aspirin 81 mg PO DAILY atorvastatin 20 mg PO DAILY blood sugar diagnostic (FreeStyle Lite Strips) use twice daily to test blood sugar blood-glucose meter (FreeStyle Lite Meter kit) As directed empagliflozin (Jardiance) 25 mg PO QAM lancets (FreeStyle Lancets) use 1 strip to test blood sugar twice a day metformin ER 1,000 mg (2 x 500 mg) PO BID Tobacco use date assessed: 11/02/24 Dental Screening Dental Screen Date: 02/21/24 HPI PE/reschedule HPI Details Pt presents for PE. 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 Housing: House Alcohol intake: current Alcohol intake frequency: holidays/special occasions only Patient Tobacco Use Status: Never used Tobacco e-Cigarette/Vaping Use: Never Used service: No Current occupational status: employed Cognitive needs: No Hearing needs: No Vision needs: Yes Questionnaire Thrive Questionnaire Date Thrive assessed: 07/06/24 I am a: Patient What is your living situation today?: I have a steady place to live Within the past 12 months, did the food you bought not last and you didn't have the money to get more?: Never true Within the past 12 months, did you worry whether your food would run out before you got money to buy more?: Never true Do you have trouble paying for medicines?: No Do you have trouble getting transportation to medical appointments?: No Do you have trouble paying your heating and electricity bill?: No Do you have trouble taking care of your child, family member or friend?: No Do you have trouble with day-to-day activities such as bathing, preparing meals, shopping, managing finances, etc.?: No Are you currently unemployed and looking for a job?: No Are you interested in more education?: No Please select the resources that you would like help with: None Currently or been in a relationship where the following occur: No concerns rep orted THRIVE Score: 0 AUDIT C Alcohol Use Questionnaire (AUDIT-C) 2. How many drinks containing alcohol do you have on a typical day when you are drinking?: 1 or 2 3. How often do you have six or more drinks on one occasion?: Never Total Score: 0 VICTORIANO-7 AMB Questionnaire VICTORIANO-7 Date VICTORIANO - 7 assessed: 07/13/24 Source: Developed by Drs. Pete Chung, Iris Oh, Leon Lopez and colleagues, with an educational lamont from [employer]. Review of Systems Const All systems reviewed & are unremarkable except as noted in HPI and below Reports no additional complaints Eyes Reports no additional complaints ENT Reports no additional complaints Card Reports no additional complaints Resp Reports no additional complaints GI Reports no additional complaints Reports no additional complaints Physical exam (Primary Care) Vital Signs: Last Vital Signs Pulse 86 11/02/24 10:19 BP 134/76 11/02/24 10:19 Pulse Ox 95 11/02/24 10:19 Oxygen Delivery Method Room Air 11/02/24 10:19 BMI result Body Mass Index 47.2 Tobacco/Smoking Status: Tobacco use Status Tobacco use date assessed 11/02/24 11/02/24 10:33 Patient Tobacco Use Status Never used Tobacco 11/02/24 10:19 e-Cigarette/Vaping Use Never Used 11/02/24 10:19 Thrive Assessment: Date of Thrive Assessment Date Thrive assessed 07/06/24 11/02/24 10:19 Currently or been in a relationship where the following occur: No concerns reported Const General: no acute distress HENMT Head: Yes normal to inspection Ears: hearing grossly normal bilaterally Face and sinus: Yes normal facial exam Mouth: Normal oral and palatal mucosa present Throat: Yes posterior oropharynx normal Eyes General: appearance normal, both eyes and all related structures Neck Neck: Yes no lymphadenopathy and Yes supple Resp Effort & Inspection: normal respiratory effort Auscultation: clear to auscultation bilaterally Cardio Rhythm: regular rhythm Heart sounds: S1 normal heart sound present and S2 normal heart sound present GI Inspection: Yes normal to inspection Palpation (GI): Soft to palpation Percussion: Yes normal to percussion Auscultation: normal bowel sounds Results AMB Hemoglobin A1c AMB Hemoglobin A1c 7.5 % Last Edit by J CARLOS Parker on 11/02/24 11:1 0 Coding Level of Care Code Est Pt Prev Care 40-64y(88404) Diagnoses Mammogram normal Annual physical exam Z00.00 DM type 2 (diabetes mellitus, type 2) E11.9 Hyperlipidemia E78.5 Assessment & Plan Assessment & Plan (1) Mammogram normal: Comment: 11/2020, 2022, 2023 Category: Medical Plan: up to date (2) Annual physical exam: Onset Date: ~06/11/23 Code(s): Z00.00 - Encounter for general adult medical examination without abnormal findings Category: Medical Plan: Well-balanced ADA diet increase physical activity weight loss discussed with the patient. She is up-to-date with the mammogram colonoscopy and Pap by senior commissary agent (3) DM type 2 (diabetes mellitus, type 2): Code(s): E11.9 - Type 2 diabetes mellitus without complications Category: Medical Plan: A1c is 7.5. ADA diet weight loss discussed with the patient. Ozempic 0.25 mg weekly will be added. Patient was advised to monitor her blood glucose and she will return in 3 months (4) Hyperlipidemia: Code(s): E78.5 - Hyperlipidemia, unspecified Category: Medical Plan: Continue atorvastatin Orders: Orders AMB Hemoglobin A1c Today Z13.9 - Encounter for screening, unspecified Hemoglobin A1c 3 Months E11.9 - Type 2 diabetes mellitus without complications, E66.9 - Obesity, unspecified, E78.5 - Hyperlipidemia, unspecified Complete Blood Count Auto Diff 3 Months E11.9 - Type 2 diabetes mellitus without complications, E66.9 - Obesity, unspecified, E78.5 - Hyperlipidemia, unspecified Microalbumin, Random (w Creat) 3 Months E11.9 - Type 2 diabetes mellitus without complications, E66.9 - Obesity, unspecified, E78.5 - Hyperlipidemia, unspecified Comprehensive [place]. Panel Fast 3 Months E11.9 - Type 2 diabetes mellitus without complications, E66.9 - Obesity, unspecified, E78.5 - Hyperlipidemia, unspecified Lipid Panel 3 Months E11.9 - Type 2 diabetes mellitus without complications, E66.9 - Obesity, unspecified, E78.5 - Hyperlipidemia, unspecified Medications: New semaglutide 0.25 mg (0.187 mL) subcut QWEEK 1.5 mL 2RF
--- OUTSIDE RECORDS SUMMARY | 2024-11-02 10:20 | XMS_ITS ---
Author Organization [facility] Address [address] [facility] [place] [address] Care Team Providers Care Piece Presser Name Role Phone Michaela Corbett MD Primary Care Provider Unavaila Evelio Perez Unavailable [phone] Encounters Encounter Location Date [facility] [address] [place] [phone] 03/01/2024 Evelio Mullen Plan Of Treatment No Information Progress Notes * Lana CALDERONOB: 4 (59 yo F)Acc No.[id number]:03/01/2024 Progress Note Patient:?Komal CALDERON Provider:?Evelio Mullen DPM :1965???Age:58 Y???Sex:Female D ate:03/01/2024 Address:[address] [place], [place] [phone] Pcp:Michaela Corbett MD Subjective: * Chief Complaints: [...] Mullen DPM Date:?2023 Generated for Luisa llamas/Layla/Yvanitting on:?11/02/2024 10:20 AM EST
--- OUTSIDE RECORDS SUMMARY | 2024-11-02 10:20 | XMS_ITS ---
Author Organization [facility] Address [address] [place] [address] Care Team Providers Care Hog Scalder Name Role Phone Michaela Corbett MD Primary Care Provider Unavaila Evelio Perez Unavailable [phone] REASON FOR VISIT Billing Issue Encounters Encounter Location Date Provider Diagnosis [facility] [address] [place] [phone] 03/01/2024 Evelio Mullen Plan Of Treatment No Information Progress Notes * Gisselle CORONAeDOB: 4 (58 yo F)Acc No.[id number]:03/01/2024 Patient:?ChloeKomal :1965???Age:58 Y???Sex:Female Address:[address] [place] [address], [phone] * true * Date:? Generated for Printi ng/Fabarbarag/eTransmitting on:?11/02/2024 10:20 AM EST
--- OUTSIDE RECORDS SUMMARY | 2024-11-02 10:20 | XMS_ITS | Patient Health Record ---
Author Organization [facility] Address [address] [facility] [place] [address] Care Team Providers Care Computer Technologist Name Role Phone Michaela Corbett MD Primary Care Provider Unavaila Evelio Perez Unavailable [phone] Allergies No Known Allergies Results Component Value [...] Problem Acquired hammer toe of right foot (40460075122720 05) Other hammer toe(s) (acquired), right foot (M20.41) Active confirmed Problem Type 2 diabetes mellitus with peripheral angiopathy (792228961) Type 2 diabetes mellitus with diabetic peripheral angiopathy without gangrene (E11.51) Active confirmed Problem Acquired hammer toe of left foot (07688765688789 03) Other hammer toe(s) (acquired), left foot (M20.42) Active confirmed Vital Signs Height 5ft 1in in 01/12/2024 Weight 259 lbs 01/12/2024 BMI 48.93 kg/m2 01/12/2024 Procedures Procedure Date Ordered Date Performed Result Body Sit e 75075-NYEHYXK NAIL, 6 OR MORE 12/15/2023 N/A 58831-IOSR SKIN LESIONS, 2 TO 4 12/15/2023 N/A 54184-Udyintjt Plate 01/12/2024 N/A 49472-Kzfwhxqw Plate Each Additional 01/12/2024 N/A Encounters Encounter Location Date [facility] [address] 12/15/2023 Evelio Mullen Type 2 diabetes mellitus with diabetic peripheral angiopathy without gangrene E11.51 ; Tinea unguium B35.1 ; Pain in right toe(s) M79.674 ; Pain in left toe(s) M79.675 ; Other hammer toe(s) (acquired), left foot M20.42 and Other hammer toe(s) (acquired), right foot M20.41 [facility] [address] 01/12/2024 Evelio Mullen Ingrown nail L60.0 [facility] [place] [address] [place] [address] 12/16/2023 Evelio Mullen [facility] [address] 01/31/2024 [facility] [place] [address] [address] 02/01/2024 [facility] [place] [address] [address] 03/01/2024 [facility] [address] [address] 03/27/2024 [facility] Encounter Date Diagnosis (ICD Code) Assessment Notes [...] Treatment Pending Test Test Name Order Date 34103-ZIBHOIH NAIL, 6 OR MORE 12/15/2023 45603-Ltzuelhi Plate 01/12/2024 31787-Lfadiors Plate Each Additional 87290-RFRK SKIN LESIONS, 2 TO 4 12/15/19 Insurance Providers Payer Name Payer Address Payer Phone Subscriber Number Group Number Insured Name Patient Relationship to Insured Coverage Start Date Coverage End Date [facility] [address] [facility] [id number] Komal Corona Self - patient is the insured Medical (General) History Medical History History ICD Code Diabetic CAD Surgical History Surgery Date(Month/Year)
--- OUTSIDE RECORDS SUMMARY | 2024-11-02 10:20 | XMS_ITS ---
Author Organization [facility] Address [address] [facility] [place] [address] Care Team Providers Care Nutrition Consultant Name Role Phone Michaela Corbett MD Primary Care Provider Unavaila Evelio Perez Unavailable [phone] REASON FOR VISIT Fee for records request? Encounters Encounter Location Date [facility] [address] [address] 03/27/2024 Evelio Mullen Plan Of Treatment No Information Progress Notes * Gisselle CORONAeDOB: 4 (58 yo F)Acc No.[id number]:03/27/2024 Patient:?Komal Corona :1965???Age:58 Y???Sex:Female Address:[address] [place] [address], [phone] * true * Date:? Generated for Printi ng/Layla/eTransmitting on:?11/02/2024 10:19 AM EST
== END 2024-11-02 11:24 | disposition home or self-care (01) ==
PROVIDERS: PCP Internal Medicine; Visit Provider Internal Medicine
DX: Z00.00 Encounter for general adult medical examination without abnormal findings (principal); E11.9 Type 2 diabetes mellitus without complications; E78.5 Hyperlipidemia, unspecified; Z13.9 Encounter for screening, unspecified

== ENCOUNTER → 2024-11-02 10:09 | Outpatient (BNVA) | payer OTHER, SELFPAY | PROVIDERS: PCP Internal Medicine; Visit Provider Internal Medicine | DX: Z00.00 Encounter for general adult medical examination without abnormal findings (principal); E11.9 Type 2 diabetes mellitus without complications; E78.5 Hyperlipidemia, unspecified; Z79.899 Other long term (current) drug therapy | CPT/HCPCS: 83036 ==

== ENCOUNTER 2025-01-30 08:10 | Outpatient (AMB) | payer OTHER, SELFPAY ==
[2025-01-30 08:38] VITALS: BMI 47.5
--- NOTE | 2025-01-30 08:38 | A.OFFVIS_ITS ---
VS Expanded 01/30/25 08:38 Height 5 ft 1.5 in Weight 255 lb 11.779 oz BMI 47.5 Intake Visit Reasons: T2DM Allergies No Known Allergies Allergy (Verified 11/02/24 10:31) Nutrition Presentation Details: Pt presents for MNT f/u for T2DM BS Monitoring Most Recent Diabetes Results: Microalb/Creat Ratio 13.8 ug/mg cr (<30) 10/21/24 Cholesterol 139 mg/dL (<200) 10/21/24 HDL Cholesterol 33 mg/dL (>40) L 10/21/24 Triglycerides 124 mg/dL (<150) 10/21/24 Creatinine 0.71 mg/dL (0.5-1.4) 10/21/24 Blood Urea Nitrogen 18 mg/dL (9-16) H 10/21/24 Sodium 140 mmol/L (135-145) 10/21/24 Potassium 4.2 mmol/L (3.3-5.1) 10/21/24 Chloride 106 mmol/L (96-108) 10/21/24 Carbon Dioxide 24 mmol/L (22-29) 10/21/24 Calcium 8.8 mg/dL (8.4-10.2) 10/21/24 AST 39 U/L (5-31) H 10/21/24 ALT 47 U/L (0-31) H 10/21/24 Total Protein 6.9 g/dL (6.5-8.0) 10/21/24 Albumin 4.2 g/dL (3.5-5.0) 10/21/24 [facility] Medical History (Updated 11/02/24 @ 11:07 by Michaela Corbett MD) Overweight Sleep apnea Osteopenia Annual physical exam (~06/11/23) Mammogram normal Normal Pap smear Hyperlipidemia DM type 2 (diabetes mellitus, type 2) Surgical History Hx of colonoscopy Status post surgical removal of malignant neoplasm of skin Surgical history unknown Family History Mother Diabetes Kidney failure HTN (hypertension) CHF (congestive heart failure) Father Heart problem Social History Household Members Other:: 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, 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, 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 Housing: House Alcohol intake: current Alcohol intake frequency: holidays/special occasions only Patient Tobacco Use Status: Never used Tobacco e-Cigarette/Vaping Use: Never Used service: No Current occupational status: employed Cognitive needs: No Hearing needs: No Vision needs: Yes Assessment & Plan Assessment & Plan (1) DM type 2 (diabetes mellitus, type 2): Code(s): E11.9 - Type 2 diabetes mellitus without complications Category: Medical Plan: Wt: 117 Kg ( 03/2024 ), 115.9 kg(06/14), 11/14, 1116kg (02/13) Est kcal needs as per MSJ: 1700 (40% carb, 30% protein/fat) Est fluid needs as per 25-30 ml/d: 3500 Est prot per day as per 1 g/kg bw: 117 Recommend fiber intake : 8-10 g per day and gradually increase to 25-28 g per day for women and 35-38 g for men or as tolerated Recommend sodium intake per day : less than 2000 mg Educated patient on: ( R = reviewed V = verbalizes understanding N/R = needs review N/A = not applicable * Food sources of carbohydrate, adequate serving sizes and its role in various health conditions: R * Differences between complex carbohydrates a simple carbohydrates, role of fi courtney in diet: R * Lean protein sources of foods: R * Differences between types of fats and role in diet (mono on saturated fat fatty acids, saturated fatty acids, trans fats): R basic * Food sources of sodium in salt and healthy modifications for heart health in kidney health: NR * Vitamins and minerals: R * Healthy plate method concept: R * Physical activity: Benefits a precaution: R * Dietary prevention of Hyperglycemia: R Patient Instructions: Include fiber rich foods in your meals (add cucumbers, spinach, to the sandwich, choose whole grain foods) Continue working on reducing total carb per meal to 45 g or less and 0-20 g as snack Engage in movement , goal 150 min per week,unless otherwise spcified by MD Coding Level of Care Code Nutr Indiv Subseq (25053) Diagnoses DM type 2 (diabetes mellitus, type 2) E11.9 Time Spent (min) 20
--- OUTSIDE RECORDS SUMMARY | 2025-01-30 08:38 | XMS_ITS ---
Author [facility] Address [address] [facility] [place] [address] Care Team Providers Care Structural Steel Erector Name Role Phone Michaela Corbett MD Primary Care Provider Unavaila Evelio Perez Unavailable [phone] Encounters Encounter Location Date [facility] [address] [place] [address] 03/01/2024 Evelio Mullen Plan Of Treatment No Information Progress Notes * Lana CALDERONOB: 4 (59 yo F)Acc No.[id number]:03/01/2024 Progress Note Patient:?Komal CALDERON Provider:?Evelio Mullen DPM :1965???Age:58 Y???Sex:Female D ate:03/01/2024 Address:[address] [place], [place] [phone] Pcp:Michaela Corbett MD Subjective: * Chief Complaints: [...] Mullen DPM Date:?2023 Generated for Luisa llamas/Layla/Yvanitting on:?01/30/2025 08:37 AM EDT
--- OUTSIDE RECORDS SUMMARY | 2025-01-30 08:39 | XMS_ITS | Data Portability ---
Author Organization [place] [facility] [place] Address [address] [place] [address] Care Team Providers Care Foam Molder Name Role Phone MARTIN DENT Primary Care Provider Assessment Encounter Date Assessment Date Assessment LastModified by Organization Details LastModified Time 05/21/2023 05/21/2023 Pleasant 57-year-old female chronic left knee pain at her last visit on 05/07/2023 we did aspirate her knee in which we sent the synovium out for evaluation which did not reveal any growth of bacteria. She still has ongoing discomfort. We did hold off on the cortisone injection until her results confirmed no infection. She does opt for cortisone injection of the left knee at today's visit. After verbal consent was granted by the patient. The procedure was carried out the left knee. Patient tolerated the procedure well. Aftercare instructions were discussed in detail. I would like to see her back in 3 months time for repeat clinical exam. Should her symptoms not improve or worsen she should contact my office. She agrees with the above-noted plan. Indirect care and treatment in conjunction with Dr. Ramos Additional treatment plan discussed with the patient in detail included the following; - Provider focused nonsteroidal anti-inflammatory regimen (discussed were the pros, cons, benefits and risks as well as any black box warnings) in patients over 60 years old they should be very cautious in taking these medications due to potential decreased kidney function and or elevated blood pressure. - Analgesic pain medication for pain suppression (discussed were the pros, cons, benefits and risks as well as any black box warnings) - The use of topical pain relieving medication were discussed - The use of ice to decrease inflammation and pain - The use of assistive ambulatory devices for ambulation and fall prevention - Formal specific guided physical therapy program I reviewed my findings at length with the patient today. ? ? ?We discussed the nature and etiology of this problem along with current treatment options. We discussed the expected course and outcomes and what to expect. We also discussed risks and benefits. ? ? ? All of their questions were answered today, and there was exhibited understanding and comprehension of all that was discussed. Time Spent: 10 minutes were spent reviewing previous imaging and charting. ? ? ?10 minutes were spent obtaining patient history. ? ? ?5 minutes were spent on physical exam. ? ? ?5? ? ?minutes were spent explaining diagnosis and assessment. Today's documentation was made using voice recognition software. This note may contain grammatical errors secondary to the software. Not available 05/21/2023 07:53:06 08/31/2023 08/31/2023 Patient has osteoarthritis in her left knee. Fortunately, she is stable after her last injection. She has a brace she is using from an outside source and she had difficulty finding a double hinged knee brace that did not slide down. Aggravate alleviating factors were reviewed. With her current improvement she will follow-up on an as-needed basis. All questions answered to her satisfaction. [email or web address] Not available 08/31/2023 16:42:59 11/10/2023 11/10/2023 58-year-old female degenerative joint disease of the left knee with joint effusion. I had discussion with the patient regarding management. She opted for aspiration followed by cortisone injection of the left knee. After verbal consent was obtained. The procedure was carried out the left knee. She tolerated the procedure well. Aftercare instructions were discussed in detail follow-up visit 3 months time for repeat clinical exam. Should her symptoms not improve or worsen she should contact my office immediately. She agrees with this plan. Patient was seen and evaluated by Mary Schwarz PA-C in indirect conjuction with Documenting Provider: Maximilian Ramos MD . He/She agrees with history, physical examination, tests/diagnostic imaging, and treatment plan. Additional treatment plan discussed with the patient (only initiated if in boldface font) otherwise not applicable. Treatment may include the following; - Provider focused nonsteroidal anti-inflammatory regimen (discussed were the pros, cons, benefits and risks as well as any black box warnings) in patients over 60 years old they should be very cautious in taking these medications due to potential decreased kidney function and or elevated blood pressure. - Analgesic pain medication for pain suppression (discussed were the pros, cons, benefits and risks as well as any black box warnings) - The use of topical pain relieving medication were discussed - The use of ice to decrease inflammation and pain - The use of assistive ambulatory devices for ambulation and fall prevention - Formal specific guided physical therapy program I reviewed my findings at length with the patient today. ? ? ?We discussed the nature and etiology of this problem along with current treatment options. We discussed the expected course and outcomes and what to expect. We also discussed risks and benefits. ? ? ? All of their questions were answered today, and there was exhibited understanding and comprehension of all that was discussed. Time Spent: 10 minutes were spent reviewing previous imaging and charting. ? ? ?10 minutes were spent obtaining patient history. ? ? ?5 minutes were spent on physical exam. ? ? ?5? ? ?minutes were spent explaining diagnosis and assessment. Today's documentation was made using voice recognition software. This note may contain grammatical errors secondary to the software. Not available 11/11/2023 07:36:21 02/09/2024 02/09/2024 58-year-old female degenerative joint disease of the left knee. I had discussion with the patient regarding management. She would like to hold on treatment since she is asymptomatic. Should her symptoms return she will contact my office and I will schedule her as soon as feasibly possible. She agrees with this plan Patient was seen and evaluated by Mary Schwarz PA-C in indirect conjuction with Documenting Provider: Maximilian Ramos MD . He/She agrees with history, physical examination, tests/diagnostic imaging, and treatment plan. Additional treatment plan discussed with the patient (only initiated if in boldface font) otherwise not applicable. Treatment may include the following; - Provider focused nonsteroidal anti-inflammatory regimen (discussed were the pros, cons, benefits and risks as well as any black box warnings) in patients over 60 years old they should be very cautious in taking these medications due to potential decreased kidney function and or elevated blood pressure. - Analgesic pain medication for pain suppression (discussed were the pros, cons, benefits and risks as well as any black box warnings) - The use of topical pain relieving medication were discussed - The use of ice to decrease inflammation and pain - The use of assistive ambulatory devices for ambulation and fall prevention - Formal specific guided physical therapy program I reviewed my findings at length with the patient today. ? ? ?We discussed the nature and etiology of this problem along with current treatment options. We discussed the expected course and outcomes and what to expect. We also discussed risks and benefits. ? ? ? All of their questions were answered today, and there was exhibited understanding and comprehension of all that was discussed. Time Spent: 10 minutes were spent reviewing previous imaging and charting. ? ? ?10 minutes were spent obtaining patient history. ? ? ?5 minutes were spent on physical exam. ? ? ?5? ? ?minutes were spent explaining diagnosis and assessment. Today's documentation was made using voice recognition software. This note may contain grammatical errors secondary to the software. Not available 02/09/2024 15:44:07 08/17/2024 08/17/2024 58-year-old female with left knee pain. History, examination and x-rays are consistent with advanced osteoarthritis with [id number]-[id number] articulation. After discussion regarding treatment options she wishes to proceed with cortisone injection. See the attached procedure note. This patient was seen and evaluated by Mary Mckeon MS, PA-C in indirect conjunction with documenting/super vising provider Maximilian Ramos MD. He agrees with history, physical examination, tests/diagnostic imaging, and treatment plan. This document was generated using voice recognition software. As a result, there may be unintended spelling, grammatical and/or textual errors. Not available 08/17/2024 14:28:28 Plan of Treatment Reminders Order Date Submit Date Provider Last Modified By Organization Details Last Modified Time Details Appointments None recorded. Lab None recorded. Referral None recorded. Procedures None recorded. Surgeries None recorded. Imaging XR, knee, 4 or more view 2023 024 [facility], [address], [place], [address], 14:45:54 Medication Orders Marcaine (PF) 0.5 % (5 mg/mL) injection solution 2023 024 [facility], [address] [place] [address], [id number], 4 14:45:54 lidocaine (PF) 100 mg/5 mL (2 %) injection syringe 2023 024 [facility], [address] [place] [address], [address], 4 14:45:54 triamcinolo ne acetonide 40 mg/mL suspension for injection 2023 024 [facility], [address] [place] [address], [address], 4 14:45:54 Kenalog 40 mg/mL suspension for injection 2022 023 [place] [address] [facility], [address] [place] [address], [id number], 3 07:36:22 lidocaine (PF) 10 mg/mL (1 %) injection solution 2022 023 [place] [address] [facility], [address] [place] [address], [address], 3 07:36:22 Kenalog 40 mg/mL suspension for injection 2022 023 [place] [address] [facility], [address] [place] [address], [id number], 3 12:39:42 lidocaine (PF) 10 mg/mL (1 %) injection solution 2022 023 [place] [address] [facility], [address] [place] [address], [address], 3 12:39:42 Patient TargetsNo targets recorded. Patient Instructions Encounter Date Encounter Id Patient Instructions Last Modified By Organization Details Last Modified Time 05/21/2023 [id number] You have been provided with a cortisone injection in order to reduce the pain and inflammation that you are experiencing. The injection consists of two medications. Cortisone (an anti-inflammatory that will take 48-72 hours to take effect) and Lidocaine (a numbing agent that will last 2-3 hours). Please note that not everyone will have a lasting response following the injection. PATIENT INSTRUCTIONS Once the Lidocaine wears off, you may have an increase in your pain. I recommend icing the affected area for 20 minutes 3-4 times per day. It is recommended that you refrain from any high level activities using the joint or limb that was injected for approximately 24-48 hours. Normal day-to-day activities are generally not a problem. POSSIBLE SIDE EFFECTS Individuals with dark complexions may experience some skin discoloration locally at the site of the injection. There is the possibility of an increase in discomfort within 48 hours following the injection. This is called a ? f lare? . To help minimize the chances of this, please see the post-injection instructions above. There is a less than 1% chance of an infection. If you notice any signs of infection (redness, warmth, drainage, fever greater than 100 degrees) please call our office or contact us through the portal [facility]. Not available 05/21/2023 12:39:52 11/10/2023 [id number] You have been provided with a cortisone injection in order to reduce the pain and inflammation that you are experiencing. The injection consists of two medications. Cortisone (an anti-inflammatory that will take 48-72 hours to take effect) and Lidocaine (a numbing agent that will last 2-3 hours). Please note that not everyone will have a lasting response following the injection. PATIENT INSTRUCTIONS Once the Lidocaine wears off, you may have an increase in your pain. I recommend icing the affected area for 20 minutes 3-4 times per day. It is recommended that you refrain from any high level activities using the joint or limb that was injected for approximately 24-48 hours. Normal day-to-day activities are generally not a problem. POSSIBLE SIDE EFFECTS Individuals with dark complexions may experience some skin discoloration locally at the site of the injection. There is the possibility of an increase in discomfort within 48 hours following the injection. This is called a ? f lare? . To help minimize the chances of this, please see the post-injection instructions above. There is a less than 1% chance of an infection. If you notice any signs of infection (redness, warmth, drainage, fever greater than 100 degrees) please call our office or contact us through the portal [facility]. Not available 11/11/2023 07:35:38 08/17/2024 [id number] {{2 3 4 5 6 7* 8 9 }} view X-ray study obtained during today's office encounter show evidence of {{mild moderate se prashant*}} {{right left* bila teral}} {{hip knee*}} osteoarthritis. There is joint space narrowing, subchondral sclerosis and marginal osteophytosis. Kellgren-Fly grade {{0 1 2 3* 4}}. No evidence of acute fracture or osteolytic findings. Not available 08/17/2024 14:27:41 Reason for Referral None Reported. Results Created Date Observation Date Name Description Value Unit Range Abnormal Flag Note LastModifiedBy Organization Detail LastModifiedTime 04/28/20 23 04/28/2023 [place], lorie deluca, miky s, kasandra [facility] mity No observ ation record ed. [email or web address] [facility] [address] [place], [address], 04/29/2023 15:03:05 Result Notes None recorded. Problems Name Problem SNOMED Code Status Onset Date Resolution Date Notes Provider Name and Address Organization Details Recorded Time Effusion of joint of left knee 8764192142158 05 Active 2022 MARY SCHWARZ PA-C [address] [facility],[address], [place], [address], [place] - [facility], P 3 10:04:41 Effusion of joint 414146466 Active 2022 MARY SCHWARZ PA-C [address] [facility] [address], [place], [address], [place] [facility], P 3 10:04:53 Osteoarthri tis of left knee joint 1259427607696 09 Active 2022 MARY SCHWARZ PA-C [address] [facility],[address], [place], [address], [place] - [facility], P 3 12:39:00 Pain of left calf 3756473489176 109 Active 2022 RADHA BOUCHER PA-C [address], [place], [address], [place] - [facility], P 3 14:06:32 Pain in left lower limb 322340496 Active 2022 RADHA BOUCHER PA-C [address], [facility] [place], [address], [place] [facility], P 3 14:06:38 Type 2 diabetes mellitus 03380514 Active 2022 RADHA BOUCHER PA-C [address], [facility] [place], [address], [place] - [facility], P 3 14:11:33 Problem Notes None recorded. Procedures Surgical History Date Name Laterality Status Provider Name and Address Organization Details Recorded Time 4 MJG Knee injection w/US completed MARY MCKEON PA-C [address] [facility], [place], [address], [place] - [facility], P 08/17/2024 14:26:58 3 Knee Joint/Bursa Asp & Inj completed MARY SCHWARZ PA-C [address] [place] [address], [address], [place] - [facility], P 11/11/2023 07:34:13 3 Knee Joint/Bursa Asp & Inj completed MARY SCHWARZ PA-C [address], [place], [address], [place] - [facility], P 05/21/2023 07:52:08 3 Knee Joint/Bursa Asp & Inj completed MARY SCHWARZ PA-C [address], [place], [address], [place] - [facility], P 05/07/2023 12:36:47 Imaging Results Imaging Date Name Status LastModified by Organiz ation Details LastModified Time 04/28/2023 US, duplex, venous, lower extremity completed [facility] [address] [facility], [place], [address], 04/29/2023 15:03:05 Procedure Notes None recorded. Medical Equipment None Reported. Allergies No known drug allergies Medications Name Sig Start Date Stop Date Status Note LastModified by Organization Details LastModified Time amoxicillin 500 mg capsule TAKE ONE CAPSULE BY MOUTH THREE TIMES A DAY active Not Available Not Available No t Available atorvastati n 20 mg tablet TAKE ONE TABLET BY MOUTH EVERY DAY active Not Available Not Available No t Available azithromyci n 250 mg tablet TAKE TWO TABLETS BY MOUTH ONE DOSE ON THE FIRST DAY, THEN TAKE ONE TABLET DAILY THERERACQUELE R. 05/11 completed Not Available Not Available Not Available FreeStyle Lancets 28 gauge USE ONE STRIP TO TEST BLOOD SUGARS TWO TIMES A DAY active Not Available Not Available No t Available benzonatate 100 mg capsule TAKE ONE CAPSULE BY MOUTH TWO TO THREE TIMES A DAY NEEDED FOR COUGH 05/11 completed Not Available Not Available Not Available triamcinolo ne acetonide 40 mg/mL suspension for injection Take 40 mg by injection route. 2023 active Not Available Not Available Not Avai lable prednisone 50 mg tablet TAKE ONE TABLET BY MOUTH EVERY DAY 05/07 completed Not Available Not Available Not Available bisacodyl 5 mg tablet,rob yed release TAKE 2 TABLETS BY MOUTH AT NOON THE DAY BEFORE YOUR COLONOSCO PY 05/11 completed Not Available Not Available Not Available ibuprofen 600 mg tablet TAKE ONE TABLET BY MOUTH EVERY 4 TO 6 HOURS NEEDED active Not Available Not Available No t Available polyethylen e glycol 3350 17 gram/dose oral powder TAKE 238 GRAMS ORALLY ONCE DIRECTED BY THE [facility]OLOG[facility] DEPARTMEN T AT THE [facility] 08/31 completed Not Available Not Available Not Available metformin ER 500 mg tablet,exte nded release 24 hr TAKE TWO TABLETS BY MOUTH TWICE A DAY active Not Available Not Available No t Available cyclobenzap rine 5 mg tablet TAKE ONE TABLET BY MOUTH THREE TIMES A DAY 05/07 completed Not Available Not Available Not Available Marcaine (PF) 0.5 % (5 mg/mL) injection solution Take 4 mL by injection route. 2023 active Not Available Not Available Not Avai lable lidocaine (PF) 10 mg/mL (1 %) injection solution Take 2 mL by injection route. 2022 active Not Available Not Available Not Avai lable FreeStyle Lite Strips USE TWICE DAILY TO TEST BLOOD SUGARS active Not Available Not Available No t Available lidocaine (PF) 100 mg/5 mL (2 %) injection syringe Take 4 mL by injection route. 2023 active Not Available Not Available Not Avai lable Jardiance 25 mg tablet TAKE ONE TABLET BY MOUTH EVERY MORNING active Not Available Not Available No t Available Vitals Date Recorded Body height Provider Name an d Address Organization Details Last Updated DateTime 05/21/2023 154.94 cm Heaven Salcedo [facility] 05/21/2023 09:55:47 Date Recorded Body height Body mass index (BMI) Body weight Provider Name and Address Organization Details Last Updated DateTime 08/31/2023 154.94 cm 49.1 kg/m2 196334.02 g Saida Francis [facility] 08/31/2023 15:57:26 Social History Question Answer Notes LastModified by Organizat ion Details LastModified Time Tobacco Smoking Status Never Smoker Sheldon gould, [facility] 04/28/2023 13:33:59 What Is Your Level Of Alcohol Consumption? None [email or web address] Information not available 04/28/2023 Do You Use Any Illicit Or Recreational Drugs? No [email or web address] Information not available 04/28/2023 Do You Or Have You Ever Used Any Other Forms Of Tobacco Or Nicotine? No Information not available 04/28/2023 Sex: Unknown Functional Status None recorded. Mental Status None recorded. Family History Relationship Description Onset Age of this Age Resolved Age Notes LastModified by Organization Details LastModified Time Father Arthritis [email or web address] Not availabl e 04/28/2023 13:34:10 Father Heart disease [email or web address] Not available 2022 13:34:28 Father Hyperlipidem ia [email or web address] Not available 2022 13:34:42 Mother Diabetes mellitus Not available 2022 13:34:18 Mother Heart disease [email or web address] Not available 2022 13:34:28 Mother Hyperlipidem ia [email or web address] Not available 2022 13:34:42 Mother Essential hypertension [email or web address] Not available 05/2023 13:34:50 Sister Rheumatism [email or web address] Not availab le 04/28/2023 13:34:59 Medical History Condition Response Diabetes Y Gynecological HistoryNo gynecological history recorded. Obstetrics History GPAL:G 0 P 0 0 0 0 Past Encounters Encounter ID Performer Location Encounter Start Date Encounter Closed Date Diagnosis/Indication Diagnosis SNOMED-CT Code Diagnosis ICD10 Code Diagnosis Note [id number] MD WHIT Levy [facility] [address] [facility] [address] [place] [address] 04/28/2023 12:59:53 04/28/2023 14:05:59 Pain in left lower limb 118710411 M79.605 Pain of left calf 215155 9231 870554 M79.662 Body mass index 40+ - severely obese 905159538 Z68.42 BMI 49 Type 2 bennett betes mellitus 60559949 E11.9 [id number] MD WHIT Jacobs [address] [facility] [address] [facility] [place] [address] 05/07/2023 09:13:35 05/07/2023 10:25:36 Effusion of joint of left knee 8325458139 37681 M25.462 Effusion of joint 784857 008 M25.40 [id number] MD WHIT Jacobsmelonie [address] [facility] [address] [facility] [address] 05/21/2023 09:39:09 05/21/2023 10:16:35 Osteoarthritis of left knee joint 5625063879 63564 M17.12 [id number] MD WHIT Jacobs [address] [facility] [address] [facility] [address] 08/31/2023 15:46:10 08/31/2023 16:18:33 Osteoarthritis of left knee joint 8904857665 41036 M17.12 [id number] MD WHIT Jacobs [address] [facility] [address] [place] [address] 11/10/2023 15:12:40 11/10/2023 15:47:51 Effusion of joint of left knee 6631602807 40498 M25.462 Left Osteoarthr itis of left knee joint 7775302455 42350 M17.12 [id number] MD WHIT Jacobs [facility] [address] [facility] [address] [place] [address] 02/09/2024 15:27:26 02/09/2024 15:39:58 Osteoarthritis of left knee joint 2073006123 16601 M17.12 Follow-up orthopedic assessment 165419616 Z47.89 Additional diagnosis detail: Encounter for orthopedic follow-up care [id number] MD WHIT Jacobs [facility] [address] [facility] [address] [place] [address] 08/17/2024 13:56:40 08/17/2024 14:38:14 Osteoarthritis of left knee joint 5315222096 22116 M17.12 Health Concerns Section Related Observation LastModified by Organization Detai ls LastModified Time None Recorded Concern Status LastModified by Organization Details LastModified Time None Recorded Advance Directives Directive None Recorded Payers Encounter Date Sequence Insurance Name Policy Number Policy Nieves Covered Member ID Nieves Member ID Guarantor Name 05/21/2023 1 [facility] [id number] Komal Lujanond [id number] Komal Corona 08/31/2023 1 [facility] [id number] Komal Lujanond [id number] Komal Corona 11/10/2023 1 [facility] [id number] Komal Marieblond [id number] Komal Corona 02/09/2024 1 [facility] [id number] Komal Marieblond [id number] Komal Corona 08/17/2024 1 [facility] [id number] Komal Marieblond [id number] Komal Corona Notes Date Note Type Note Provider Name and Address Organization Details Recorded Time 05/21/2023 text/html Assessment & Jae n: Date of visit 05/07/2023leasant 57-year-old female with ongoing left knee arthralgia with degenerative changes however she did suffer a fall in February she did have a joint effusion for which she opted for aspiration initially this was serosanguineous mostly bloody however this cleared up on the final syringe which was sent out for analysis Gram stain, crystals, culture, cell count with differential and Lyme disease antibody.I will call her with the results she had notable improvement after the aspiration regarding weightbearing as well as range of motion we did place her in a double hinged knee brace for support and she is utilizing a cane. I will see her back in 2-4 weeks for reassessment should her symptoms not improve or worsen she should contact my office. She agrees with above-noted plan. HPI: Patient notes some discomfort. Knee pain she describes as medial in nature. She is here for follow-up. Regarding her synovial analysis there was no growth and remainder of studies were negative. MARY SCHWARZ PA-C [address] [facility],[address] [address], [place], [address], [place] [facility] 05/21/2023 12:41:11 08/31/2023 text/html Patient is a 57-year-old female who presents today with stable left knee pain. She was last seen 3 months ago and had undergone a corticosteroid injection. She was having difficulty finding a brace that was effective. She did find 1 at [facility]. She is taking Advil on a as needed basis. She also notices the weather causing some increased discomfort. RADHA BOUCHER PA-C [address] [facility],[address] [facility], [place], [address], [place] - [facility], [facility] 08/31/2023 16:43:18 11/10/2023 text/html Pleasant 58-year -old female degenerative joint disease of the left knee had aspiration and cortisone injection 05/21/2023. She states this gave her satisfactory relief up until recently. She feels as though she has water on the knee . She is here for possible left knee aspiration and cortisone injection. No interval change in history. Denies fevers, chills, flulike symptoms, cough, shortness of breath. She also denies any warmth or redness overlying the left knee joint. MARY SCHWARZ PA-C [address] [facility],[address], [place], [address], [place] - [facility], [facility] 11/11/2023 07:37:02 02/09/2024 text/html Pleasant 58-year -old female degenerative joint disease of the left knee had aspiration and cortisone injectionL knee. cortisone 11/10/23. She states she is doing quite well and currently asymptomatic No interval change in history. Denies fevers, chills, flulike symptoms, cough, shortness of breath. She also denies any warmth or redness overlying the left knee joint. MARY SCHWARZ PA-C [address] [facility],[address] [address], [place], [address], [place] [facility] 02/09/2024 15:44:34 08/17/2024 text/html 58-year-old fema cony presents with chief complaint of left knee pain. She is known to have advanced osteoarthritis of the left knee. She reports that cortisone injections in the past have been highly effective at controlling her pain. Her most recent injection was on November 10, 2023 by Bro Schwarz. She reports that this gave her good relief of her pain lasting up until approximately a month ago. She presents requesting cortisone injection today. Notably, she does report having had a fall in January of this year and [facility] in [facility] She states that it caused a temporary worsening of her pain but it since settled down. She reports that she uses a brace on her own. MARY MCKEON PA-C [address] [facility] [address], [place], [address], [place] - [facility] 08/17/2024 14:34:22 OBGyn Episode No OBEpisode recorded.
--- OUTSIDE RECORDS SUMMARY | 2025-01-30 08:39 | XMS_ITS ---
Author Organization [facility] Address [address] [facility] [place] [address] Care Team Providers Care Lan Support Specialist Name Role Phone Michaela Corbett MD Primary Care Provider Unavaila Evelio Perez Unavailable [phone] REASON FOR VISIT Fee for records request? Encounters Encounter Location Date [facility] [address] [address] 03/27/2024 Evelio Mullen Plan Of Treatment No Information Progress Notes * Gisselle CORONAeDOB: 4 (58 yo F)Acc No.[id number]:03/27/2024 Patient:?Komal Corona :1965???Age:58 Y???Sex:Female Address:[address] [place] [address], [address] * true * Date:? Generated for Printi ng/Fabarbarag/eTransmitting on:?01/30/2025 08:39 AM EDT
--- OUTSIDE RECORDS SUMMARY | 2025-01-30 08:39 | XMS_ITS | Clinical Summary ---
Author Organization [facility] Address [address] [id number] Care Team Providers Care Director Of Grants Name Role Phone Heladio Wang MD Primary Care Provider [phone] Allergies No known active allergies Medications Medication Sig Dispensed Refills Start Date End Date Status atorvastatin (LIPITOR) tablet 20 mg 0 11/28/2019 Active metFORMIN (GLUCOPHAGE) tablet 500 mg 0 01/08/2020 Active Family History Medical History Relation Name Comments Heart disease Father Diabetes Mother Heart disease Mother Hypertension Mother Relation Name Status Comments Father Mother Social History Tobacco Use Types Packs/Day Years Used Date Smoking Tobacco: Never Assessed Sex and Gender Information Value Date Recorded Sex Assigned at Not on file Gender Identity Not on file Sexual Orientation Not on file Last Filed Vital Signs Vital Sign Reading Time Taken Comments Blood Pressure - - Pulse - - Temperature - - Respiratory Rate - - Oxygen Saturation - - Inhaled Oxygen Concentration - - Weight 131.5 kg (290 lb) 01/26/2020 2:43 PM EST Height 162.6 cm (5' 4 ) 01/26/2020 2:43 PM EST Body Mass Index 49.78 01/26/2020 2:43 PM EST Plan of Treatment Health Maintenance Due Date Last Done Comments Hepatitis C Screening 1965 COVID-19 Vaccine (#1) 04/05/1965 Pneumococcal Vaccine (1 of 2 - PCV) 1970 Depression Screening 1976 BMI Counseling 1982 Preventative Health Evaluation 1982 DTap / Tdap / Td (1 - Tdap) 1983 Cervical Cancer Screening (P ap Smear) 1985 Colon Cancer Screening (Colonoscopy) 2009 Breast Cancer Screening (Mammogram) 2014 Shingrix-Zoster Vaccine (1 of 2) 2014 Influenza Vaccine (#1) 2024 RSV Adult > 60+ Yrs or Pregn ant (1 - 1-dose 75+ series) 2039 Hepatitis B Vaccines Aged Out No long er eligible based on patient's age to complete this topic RSV Ped < 20 months Aged Out No longe r eligible based on patient's age to complete this topic Care Teams Director Of Grants Relationship Specialty Start Date End Date Heladio Wang MD [address] [place] [address] PCP - General Internal Medicine 01/19/20
--- OUTSIDE RECORDS SUMMARY | 2025-01-30 08:39 | XMS_ITS | Patient Health Record ---
Author Organization [facility] Address [address] [facility] [place] [address] Care Team Providers Care Educational Psychology Professor Name Role Phone Michaela Corbett MD Primary Care Provider Unavaila Evelio Perez Unavailable [phone] Allergies No Known Allergies Reason For Referral No Information Medications Medication [...] Problem Acquired hammer toe of right foot (78444686793339 05) Other hammer toe(s) (acquired), right foot (M20.41) Active confirmed Problem Type 2 diabetes mellitus with peripheral angiopathy (874715703) Type 2 diabetes mellitus with diabetic peripheral angiopathy without gangrene (E11.51) Active confirmed Problem Acquired hammer toe of left foot (40933292202062 03) Other hammer toe(s) (acquired), left foot (M20.42) Active confirmed Encounters Encounter Location Date Provider Diagnosis [facility] [address] [place] [address] 01/31/[address] Mullen [address] [address] 02/01/2024 Evelio Mullen [address] [address] 03/01/2024 Evelio Sebas [address] [address] 03/27/2024 Evelio Mullen Plan Of Treatment Pending Test Test Name Order Date [id number] NAIL, 6 OR MORE 12/15/2023 04012-Dhormibs Plate 01/12/2024 43459-Ldxwzcpc Plate Each Additional 85205-JEJL SKIN LESIONS, 2 TO 4 12/15/19 Insurance Providers Payer Name Payer Address Payer Phone Subscriber Number Group Number Insured Name Patient Relationship to Insured Coverage Start Date Coverage End Date [facility] [address] [place] [address] [phone] [id number] Komal Corona Self - patient is the insured Medical (General) History Medical History History ICD Code Diabetic CAD Surgical History Surgery Date(Month/Year)
--- OUTSIDE RECORDS SUMMARY | 2025-01-30 08:39 | XMS_ITS ---
Author Organization [facility] Address [address] [facility] [place] [address] Care Team Providers Care Last Ironer Name Role Phone Michaela Corbett MD Primary Care Provider Unavaila Evelio Perez Unavailable [phone] REASON FOR VISIT Billing Issue Encounters Encounter Location Date Provider Diagnosis [facility] [address] [place] [address] 03/01/2024 Evelio Mullen Plan Of Treatment No Information Progress Notes * Gisselle CORONAeDOB: 4 (58 yo F)Acc No.[id number]:03/01/2024 Patient:?ChloeKomal :1965???Age:58 Y???Sex:Female Address:[address] [place] [address], [address] * true * Date:? Generated for Printi ng/Fabarbarag/eTransmitting on:?01/30/2025 08:38 AM EDT
== END 2025-01-30 09:10 | disposition home or self-care (01) ==
LOC: HO.ENCR 08:11
PROVIDERS: PCP Internal Medicine; Visit Provider Dietitian, Registered
DX: E11.9 Type 2 diabetes mellitus without complications (principal)

== ENCOUNTER → 2025-01-30 08:10 | Outpatient (BNVA) | payer SELFPAY | PROVIDERS: PCP Internal Medicine; Visit Provider Dietitian, Registered | DX: E11.9 Type 2 diabetes mellitus without complications (principal); Z71.3 Dietary counseling and surveillance | CPT/HCPCS: 97803 ==

== ENCOUNTER 2025-02-24 09:06 | Outpatient (REF) | payer BC, SELFPAY ==
--- OUTSIDE RECORDS SUMMARY | 2025-02-24 09:09 | XMS_ITS ---
Author Organization [facility] Address [address] [facility] [address] Care Team Providers Care Circuit Breaker Mechanic Name Role Phone Michaela Corbett MD Primary Care Provider Unavaila Evelio Perez Unavailable [phone] Encounters Encounter Location Date Provider [facility] [address] [place] [address] 03/01/2024 Evelio Mullen Plan Of Treatment No Information Progress Notes * Lana CALDERONOB: 4 (59 yo F)Acc No.[id number]:03/01/2024 Progress Note Patient:?Komal CALDERON Provider:?Evelio Mullen DPM :1965???Age:58 Y???Sex:Female D ate:03/01/2024 Address:[address] [place], [place] [address] Pcp:Michaela Corbett MD Subjective: * Chief Complaints: [...] Mullen DPM Date:?2023 Generated for Luisa llamas/Layla/Yvanitting on:?02/24/2025 09:09 AM EDT
--- OUTSIDE RECORDS SUMMARY | 2025-02-24 09:10 | XMS_ITS | Data Portability ---
Author Organization [place] [facility] Address [address] [place] [address] Care Team Providers Care Ceramics Instructor Name Role Phone MARTIN DENT Primary Care Provider [phone] Assessment Encounter Date Assessment Date Assessment LastModified [...] basis. All questions answered to her satisfaction. [email or web address] Not available 08/31/2023 16:42:59 11/10/2023 11/10/2023 58-year-old [...] x-rays are consistent with advanced osteoarthritis with rphy-rf-hjpa articulation. After discussion regarding treatment options she [...] knee, 4 or more view 2023 024 [place] [facility], [address], [place], [address], 14:45:54 Medication Orders Marcaine (PF) 0.5 % (5 mg/mL) injection solution 2023 024 [facility] [place] [facility], [address] [place] [address], [address], 4 14:45:54 lidocaine (PF) 100 mg/5 mL (2 %) injection syringe 2023 024 [facility] [place] [facility], [address] [place] [address], [address], 4 14:45:54 triamcinolo ne acetonide 40 mg/mL suspension for injection 2023 024 [facility] [facility], [address] [place] [address], [address], 4 14:45:54 Kenalog 40 mg/mL suspension for injection 2022 023 [place] [address] [facility], [address] [place] [address], [address], 3 07:36:22 lidocaine (PF) 10 mg/mL (1 %) injection solution 2022 023 [place] [address] [facility], [address] [place] [address], [address], 3 07:36:22 Kenalog 40 mg/mL suspension for injection 2022 023 [place] [address] [facility], [address] [place] [address], [address], 3 12:39:42 lidocaine (PF) 10 mg/mL (1 %) injection solution 2022 023 [place] [address] [facility], [address] [place] [address], [address], 3 12:39:42 Patient TargetsNo targets recorded. Patient Instructions Encounter Date Encounter Id Patient Instructions Last Modified By Organization Details Last Modified Time 05/21/2023 [id number] You have been provided with a cortisone [...] office or contact us through the portal [facility]. Not available 05/21/2023 12:39:52 11/10/2023 [id number] You have been provided with a cortisone [...] portal [facility]. Not available 11/11/2023 07:35:38 08/17/2024 [id number] {{2 3 4 5 6 7* 8 [...] Detail LastModifiedTime 04/28/20 23 04/28/2023 US, lorie deulca, miky s, kasandra [facility] mity No observ ation record ed. [email or web address] [facility] [address] [place], [address], 04/29/2023 15:03:05 Result Notes None recorded. Problems Name Problem SNOMED Code Status Onset Date Resolution Date Notes Provider Name and Address Organization Details Recorded Time Effusion of joint of left knee 3659074867119 05 Active 2022 MARY SCHWARZ PA-C [address] [facility],[address], [place], [address], [place] [facility] 3 10:04:41 Effusion of joint 729891855 Active 2022 MARY SCHWARZ PA-C [address] [facility] [address], [place], [address], [place] [facility], P 3 10:04:53 Osteoarthri tis of left knee joint 6343705684364 09 Active 2022 MARY SCHWARZ PA-C [address] [facility],[address], [place], [address], [place] - [facility], P 3 12:39:00 Pain of left calf 6668144709086 109 Active 2022 RADHA BOUCHER PA-C [address], [place], [address], [place] [facility], P 3 14:06:32 Pain in left lower limb 639339595 Active 2022 RADHA BOUCHER PA-C [address], [place], [address], [place] - [facility], P 3 14:06:38 Type 2 diabetes mellitus 32556633 Active 2022 RADHA BOUCHER PA-C [address], [place], [address], [place] [facility], [facility] 3 14:11:33 Problem Notes None recorded. Procedures Surgical History Date Name Laterality Status Provider Name and Address Organization Details Recorded Time 4 MJG Knee injection w/US completed MARY MCKEON PA-C [address],RY[address] [facility], [place], [address], [place] [facility], [facility] 08/17/2024 14:26:58 3 Knee Joint/Bursa Asp & Inj completed MARY SCHWARZ PA-C [address],RY[address] [place] [address], [address], [place] - [facility], [facility] 11/11/2023 07:34:13 3 Knee Joint/Bursa Asp & Inj completed MARY SCHWARZ PA-C [address], [place], [address], [place] - [facility], [facility] 05/21/2023 07:52:08 3 Knee Joint/Bursa Asp & Inj completed MARY SCHWARZ PA-C [address], [place], [address], [place] [facility], [facility] 05/07/2023 12:36:47 Imaging Results Imaging Date Name Status LastModified by Organiz ation Details LastModified Time 04/28/2023 US, duplex, venous, lower extremity completed [email or web address] [facility] [address] [facility], [place], [address], 04/29/2023 15:03:05 Procedure Notes None recorded. Medical [...] [facility]PART[facility] T AT [facility] 08/31 completed Not Available Not Available Not [...] Updated DateTime 05/21/2023 154.94 cm Heaven Salcedo [facility] 05/21/2023 09:55:47 Date Recorded Body height Body mass index (BMI) Body weight Provider Name and Address Organization Details Last Updated DateTime 08/31/2023 154.94 cm 49.1 kg/m2 304748.02 g Saida Francis [facility] 08/31/2023 15:57:26 Social History Question Answer Notes LastModified by Organizat ion Details LastModified Time Tobacco Smoking Status Never Smoker Sheldon gould, [facility] 04/28/2023 13:33:59 What Is Your Level Of Alcohol Consumption? None [email or web address] Information not available 04/28/2023 Do You Use Any Illicit Or Recreational Drugs? No [email or web address] Information not available 04/28/2023 Do You Or Have You Ever Used Any Other Forms Of Tobacco Or Nicotine? No [email or web address] Information not available 04/28/2023 Sex: Unknown Functional Status None recorded. Mental Status None recorded. Family History Relationship Description Onset Age of this Age Resolved Age Notes LastModified by Organization Details LastModified Time Father Arthritis [email or web address] Not availabl e 04/28/2023 13:34:10 Father Heart disease [email or web address] Not available 2022 13:34:28 Father Hyperlipidem ia [email or web address] Not available 2022 13:34:42 Mother Diabetes mellitus Not available 2022 13:34:18 Mother Heart disease [email or web address] Not available 2022 13:34:28 Mother Hyperlipidem ia [email or web address] Not available 2022 13:34:42 Mother Essential hypertension [email or web address] Not available 05/2023 13:34:50 Sister Rheumatism [email or web address] Not availab le 04/28/2023 13:34:59 Medical History Condition Response Diabetes Y Gynecological HistoryNo gynecological history recorded. Obstetrics History GPAL:G 0 P 0 0 0 0 Past Encounters Encounter ID Performer Location Encounter Start Date Encounter Closed Date Diagnosis/Indication Diagnosis SNOMED-CT Code Diagnosis ICD10 Code Diagnosis Note [id number] MD WHIT Levy [facility] [address] [facility] [address] [place] [address] 04/28/2023 12:59:53 04/28/2023 14:05:59 Pain in left lower limb 513667644 M79.605 Pain of left calf 849608 6172 539688 M79.662 Body mass index 40+ - severely obese 331610886 Z68.42 BMI 49 Type 2 bennett betes mellitus 94624409 E11.9 [id number] MD WHIT Jacobs [address] [facility] [address] [place] [address] 05/07/2023 09:13:35 05/07/2023 10:25:36 Effusion of joint of left knee 9864316712 18441 M25.462 Effusion of joint 573611 008 M25.40 [id number] MD WHIT Jacobsmelonie [address] [facility] [address] [place] [address] 05/21/2023 09:39:09 05/21/2023 10:16:35 Osteoarthritis of left knee joint 0201334774 47971 M17.12 [id number] MD WHIT Jacobs [address] [facility] [address] [place] [address] 08/31/2023 15:46:10 08/31/2023 16:18:33 Osteoarthritis of left knee joint 3257059364 02145 M17.12 [id number] MD WHIT Jacobs [address] [facility] [address] [place] [address] 11/10/2023 15:12:40 11/10/2023 15:47:51 Effusion of joint of left knee 7169808530 46237 M25.462 Left Osteoarthr itis of left knee joint 5619380299 88222 M17.12 [id number] MD WHIT Jacobs [facility] [address] [facility] [address] [place] [address] 02/09/2024 15:27:26 02/09/2024 15:39:58 Osteoarthritis of left knee joint 6479369746 05006 M17.12 Follow-up orthopedic assessment 813114174 Z47.89 Additional diagnosis detail: Encounter for orthopedic follow-up care [id number] MD WHIT Jacobs [facility] [address] [facility] [address] [place] [address] 08/17/2024 13:56:40 08/17/2024 14:38:14 Osteoarthritis of left knee joint 0150661989 67159 M17.12 Health Concerns Section Related Observation LastModified by Organization Detai ls LastModified Time None Recorded Concern Status LastModified by Organization Details LastModified Time None Recorded Advance Directives Directive None Recorded Payers Encounter Date Sequence Insurance Name Policy Number Policy Nieves Covered Member ID Nieves Member ID Guarantor Name 05/21/2023 1 [facility] [id number] Komal Lujanond [id number] Komal Corona 08/31/2023 1 [facility] [id number] Komal Lujanond [id number] Komal Corona 11/10/2023 1 [facility] [id number] Komal Marieblond [id number] Komal Corona 02/09/2024 1 [facility] [id number] Komal Marieblond [id number] Komal Corona 08/17/2024 1 [facility] [id number] Komal Marieblond [id number] Komal Corona Notes Date Note Type Note [...] studies were negative. MARY SCHWARZ PA-C [address] [facility],[address] [address], [place], [address], [place] [facility] 05/21/2023 12:41:11 08/31/2023 text/html Patient is a 57-year-old female who presents today with stable left knee pain. She was last seen 3 months ago and had undergone a corticosteroid injection. She was having difficulty finding a brace that was effective. She did find 1 at [facility]. She is taking Advil on a as needed basis. She also notices the weather causing some increased discomfort. RADHA BOUCHER PA-C [address] [facility],[address] [facility], [place], [address], [place] [facility] 08/31/2023 16:43:18 11/10/2023 text/html Pleasant 58-year [...] left knee joint. MARY SCHWARZ PA-C [address] [facility],[address], [place], [address], [place] [facility] 11/11/2023 07:37:02 02/09/2024 text/html Pleasant 58-year [...] left knee joint. MARY SCHWARZ PA-C [address] [facility],[address] [address], [place], [address], [place] [facility], [facility] 02/09/2024 15:44:34 08/17/2024 text/html 58-year-old fema [...] this year and [facility] in [facility]. She states that it caused a temporary worsening of her pain but it since settled down. She reports that she uses a brace on her own. MARY MCKEON PA-C [address] [facility] [address], [place], [address], [place] [facility] 08/17/2024 14:34:22 OBGyn Episode No OBEpisode recorded.
--- OUTSIDE RECORDS SUMMARY | 2025-02-24 09:10 | XMS_ITS | Clinical Summary ---
Author Organization [facility] Address [address] [id number] Care Team Providers Care Aircraft Cleaning Supervisor Name Role Phone Heladio Wang MD Primary Care Provider [phone] Allergies No known active allergies Medications Medication [...] age to complete this topic Care Teams Aircraft Cleaning Supervisor Relationship Specialty Start Date End Date Heladio Wang MD [address] [place] [address] PCP - General Internal Medicine 01/19/20
--- OUTSIDE RECORDS SUMMARY | 2025-02-24 09:10 | XMS_ITS ---
Author Organization [facility] Address [address] [facility] [place] [address] Care Team Providers Care Head Sawyer Automatic Name Role Phone Michaela Corbett MD Primary Care Provider Unavaila Evelio Perez Unavailable [phone] REASON FOR VISIT Billing Issue Encounters Encounter Location Date Provider Diagnosis [facility] [address] [place] [address] 03/01/2024 Evelio Mullen Plan Of Treatment No Information Progress Notes * Gisselle CORONAeDOB: 4 (58 yo F)Acc No.[id number]:03/01/2024 Patient:?Chloe Komal :1965???Age:58 Y???Sex:Female Address:[address] [place] [address], [address] * true * Date:? Generated for Printi ng/Fabarbarag/eTransmitting on:?02/24/2025 09:09 AM EDT
--- OUTSIDE RECORDS SUMMARY | 2025-02-24 09:10 | XMS_ITS ---
Author Organization [facility] Address [address] [place] [address] Care Team Providers Care Steward/Stewardess Third Class Name Role Phone Michaela Corbett MD Primary Care Provider Unavaila Evelio Perez Unavailable [phone] REASON FOR VISIT Fee for records request? Encounters Encounter Location Date [facility] [address] [address] 03/27/2024 Evelio Mullen Plan Of Treatment No Information Progress Notes * Gisselle CORONAeDOB: [birth year] (58 yo F)Acc No.[id number]:03/27/2024 Patient:?Komal Corona :1965???Age:58 Y???Sex:Female Address:[address] [place] [address], [address] * true * Date:? Generated for Printi ng/Layla/eTransmitting on:?02/24/2025 09:09 AM EDT
--- OUTSIDE RECORDS SUMMARY | 2025-02-24 09:10 | XMS_ITS | Patient Health Record ---
Author Organization [facility] Address [address] [facility] [place] [address] Care Team Providers Care Data Governance Analyst Name Role Phone Michaela Corbett MD Primary Care Provider Unavaila Evelio Perez Unavailable [phone] Allergies No Known Allergies Reason For Referral [...] Problem Acquired hammer toe of right foot (87706671534619 05) Other hammer toe(s) (acquired), right foot (M20.41) Active confirmed Problem Type 2 diabetes mellitus with peripheral angiopathy (024526668) Type 2 diabetes mellitus with diabetic peripheral angiopathy without gangrene (E11.51) Active confirmed Problem Acquired hammer toe of left foot (22616510092229 03) Other hammer toe(s) (acquired), left foot (M20.42) Active confirmed Encounters Encounter Location Date Provider [facility] [address] [address] 03/01/2024 Evelio Mullen [facility] [address] 03/27/2024 Evelio Mullen Plan Of Treatment Pending Test Test Name Order Date [id number] NAIL, 6 OR MORE 12/15/2023 21048-Wfsvfgin Plate 01/12/2024 28261-Hvthpbmn Plate Each Additional 92890-APFW SKIN LESIONS, 2 TO 4 12/15/19 Insurance Providers Payer Name Payer Address Payer Phone Subscriber Number Group Number Insured Name Patient Relationship to Insured Coverage Start Date Coverage End Date [facility] [address] [place] [address] [id number] Komal Corona Self - patient is the insured Medical (General) History Medical History History ICD Code Diabetic CAD Surgical History Surgery Date(Month/Year)
[2025-02-24 11:42] LABS: MANUAL DIFF FLAG NO
[2025-02-24 11:58] LABS: Estimated Average Glucose 169 mg/dL; Hemoglobin A1C 212.3099 umol/L; Hemoglobin A1c % 7.5 % (<6.0); Total Hemoglobin (HGBA1C) 3613.2447 umol/L
[2025-02-24 12:04] LABS: Basophils Percent Auto 0.8 % (0-2); Eosinophils Absolute Auto 0.2 X10*3/uL (0.0-0.4); Eosinophils Percent Auto 3.6 % (0-4); Hematocrit 44.8 % (37.0-47.0); Hemoglobin 13.8 g/dl (12.0-16.0); Imm Gran Abs Auto 0.01 X10*3/uL (0.00-0.03); Imm Gran Pct Auto 0.2 % (0.0-0.4); Lymphocytes Absolute Auto 1.7 X10*3/uL (1.2-4.9); Lymphocytes Percent Auto 34.4 % (20-40); Mean Corpuscular HGB Conc 30.8 g/dl (31.0-35.0); Mean Corpuscular Hemoglobin 23.9 pg (27.0-33.0); Mean Corpuscular Volume 77.6 fL (80.0-98.0); Mean Platelet Volume 9.4 fL (9.4-12.3); Monocytes Absolute Auto 0.3 X10*3/uL (0.1-1.2); Monocytes Percent Auto 6.4 % (2-11); Neutrophils Absolute Auto 2.8 x10*3/uL (2.0-8.3); Neutrophils Percent Auto 54.6 % (45-73); Platelet Count 345 X10*3/uL (160-400); Red Blood Count 5.77 X10*6/uL (4.20-5.50); Red Cell Distribution Width 16.6 % (11.0-16.0)
[2025-02-24 12:15] LABS: Alanine Aminotransferase 44 U/L (0-31); Albumin Level 4.2 g/dL (3.5-5.0); Alkaline Phosphatase 96 U/L (39-117); Anion Gap 13 (12-20); Aspartate Amino Transferase 36 U/L (5-31); Bilirubin Total 0.5 mg/dL (0.0-1.0); Blood Urea Nitrogen 22 mg/dL (9-16); Carbon Dioxide 23 mmol/L (22-29); Chloride 109 mmol/L (96-108); Cholesterol 140 mg/dL (<200); Estimated Glomerular Filt Rate > 60; Glucose Fasting 127 mg/dL (60-99); HDL Cholesterol 34 mg/dL (>40); LDL Cholesterol Calculated 83 mg/dL (<100); Potassium 4.3 mmol/L (3.3-5.1); Sodium 141 mmol/L (135-145); Total Protein 6.8 g/dL (6.5-8.0); Triglycerides 117 mg/dL (<150)
[2025-02-24 12:17] LABS: Creatinine Urine 103.58 mg/dL; Microalbum/Creatinine Ratio Ur 9.6 ug/mg cr (<30)
== END 2025-02-24 09:07 | disposition home or self-care (01) ==
LOC: HO.HMGCLDS 09:06
PROVIDERS: PCP Internal Medicine; Visit Provider Internal Medicine
DX: E11.9 Type 2 diabetes mellitus without complications (principal); E78.5 Hyperlipidemia, unspecified; E66.9 Obesity, unspecified
CPT/HCPCS: 36415; 80053; 80061; 82043; 82570; 83036; 85025

== ENCOUNTER 2025-03-05 07:49 | Outpatient (AMB) | payer BC, SELFPAY ==
--- OUTSIDE RECORDS SUMMARY | 2025-03-05 07:54 | XMS_ITS ---
Author Organization [facility] Address [address] [place] [address] Care Team Providers Care Human Resources Intern Name Role Phone Michaela Corbett MD Primary Care Provider Unavaila Evelio Perez Unavailable [phone] REASON FOR VISIT Billing Issue Encounters Encounter Location Date Provider Diagnosis [facility] [address] [place] [address] 03/01/2024 Evelio Mullen Plan Of Treatment No Information Progress Notes * Gisselle CORONAeDOB: 4 (58 yo F)Acc No.[id number]:03/01/2024 Patient:?Chloe Komal :1965???Age:58 Y???Sex:Female Address:[address] [place] [address], [address] * true * Date:? Generated for Printi ng/Fabarbarag/eTransmitting on:?03/05/2025 07:53 AM EDT
--- OUTSIDE RECORDS SUMMARY | 2025-03-05 07:54 | XMS_ITS | Data Portability ---
Author Organization [place] [facility] [place] Address [address] [place] [address] Care Team Providers Care Event Promotions Coordinator Name Role Phone MARTIN DENT Primary Care [...] basis. All questions answered to her satisfaction. [email or web address] Not available 08/31/2023 16:42:59 11/10/2023 11/10/2023 58-year-old [...] x-rays are consistent with advanced osteoarthritis with cpwz-ej-dngi articulation. After discussion regarding treatment options she [...] knee, 4 or more view 2023 024 [facility], [address], [place], [address], 14:45:54 Medication Orders Marcaine (PF) 0.5 % (5 mg/mL) injection solution 2023 024 [facility], [address] [place] [address], [address], 4 14:45:54 lidocaine (PF) 100 mg/5 mL (2 %) injection syringe 2023 024 [facility], [address] [place] [address], [address], 4 14:45:54 triamcinolo ne acetonide 40 mg/mL suspension for injection 2023 024 [facility], [address] [place] [address], [address], 4 14:45:54 Kenalog 40 mg/mL suspension for injection 2022 023 [place] [address] [facility], [address] [place] [address], [address], 3 07:36:22 lidocaine (PF) 10 mg/mL (1 %) injection solution 2022 023 [place] [address] [facility], [address] [place] [address], [address], 3 07:36:22 Kenalog 40 mg/mL suspension for injection 2022 023 [place] [address] [facility], [address] [place] [address], [address], 3 12:39:42 lidocaine (PF) 10 mg/mL (1 %) injection solution 2022 023 [place] [address] [facility], [address] [place] [address], [address], 3 12:39:42 Patient TargetsNo targets recorded. Patient Instructions Encounter Date Encounter Id Patient Instructions Last Modified By Organization Details Last Modified Time 05/21/2023 [id number] You have been provided with a cortisone [...] office or contact us through the portal [facility]. Not available 05/21/2023 12:39:52 11/10/2023 [id number] You have been provided with a cortisone [...] portal [facility]. Not available 11/11/2023 07:35:38 08/17/2024 [id number] {{2 3 4 5 6 7* 8 [...] 04/28/2023 [place], lorie deluca, miky s, kas[facility] mity No observ ation record ed. [email or web address] [facility] [address] [place], [address], 04/29/2023 15:03:05 Result Notes None recorded. Problems Name Problem SNOMED Code Status Onset Date Resolution Date Notes Provider Name and Address Organization Details Recorded Time Effusion of joint of left knee 5469519149563 05 Active 2022 MARY SCHWARZ PA-C [address] [facility], [place], [address], [place] [facility] 3 10:04:41 Effusion of joint 654005183 Active 2022 MARY SCHWARZ PA-C [address] [facility] [address], [place], [address], [place] [facility], [facility] 3 10:04:53 Osteoarthri tis of left knee joint 0777770022346 09 Active 2022 MARY SCHWARZ PA-C [address] [facility], [place], [address], [place] [facility] 3 12:39:00 Pain of left calf 9251117223019 109 Active 2022 RADHA BOUCHER PA-C [address], [place], [address], [place] [facility], [facility] 3 14:06:32 Pain in left lower limb 602212191 Active 2022 RADHA BOUCHER PA-C [address], [place] [place], [address], [place] [facility], P 3 14:06:38 Type 2 diabetes mellitus 07790929 Active 2022 RADHA BOUCHER PA-C [address], [place], [address], [place] [facility], [facility] 3 14:11:33 Problem Notes None recorded. Procedures Surgical History Date Name Laterality Status Provider Name and Address Organization Details Recorded Time 4 MJG Knee injection w/US completed MARY MCKEON PA-C [address] [facility], [place], [address], [place] [facility], P 08/17/2024 14:26:58 3 Knee Joint/Bursa Asp & Inj completed MARY SCHWARZ PA-C [address] [place] [address], [address], [place] [facility], P 11/11/2023 07:34:13 3 Knee Joint/Bursa Asp & Inj completed MARY SCHWARZ PA-C [address], [place], [address], [place] [facility], P 05/21/2023 07:52:08 3 Knee Joint/Bursa Asp & Inj completed MARY SCHWARZ PA-C [address], [place], [address], [place] [facility], P 05/07/2023 12:36:47 Imaging Results Imaging Date Name Status LastModified by Organiz ation Details LastModified Time 04/28/2023 US, duplex, venous, lower extremity completed [email or web address] [facility] [address] [facility], [place], [address], 04/29/2023 15:03:05 Procedure Notes None recorded. Medical [...] [facility] 08/31 completed Not Available Not Available [...] Updated DateTime 05/21/2023 154.94 cm Heaven Salcedo [facility] 05/21/2023 09:55:47 Date Recorded Body height Body mass index (BMI) Body weight Provider Name and Address Organization Details Last Updated DateTime 08/31/2023 154.94 cm 49.1 kg/m2 837860.02 g Saida Francis [facility] 08/31/2023 15:57:26 Social History Question Answer Notes LastModified by Organizat ion Details LastModified Time Tobacco Smoking Status Never Smoker Sheldon gould, [facility] 04/28/2023 13:33:59 What Is Your Level Of Alcohol Consumption? None [email or web address] Information not available 04/28/2023 Do You Use Any Illicit Or Recreational Drugs? No [email or web address] Information not available 04/28/2023 Do You Or Have You Ever Used Any Other Forms Of Tobacco Or Nicotine? No Information not available 04/28/2023 Sex: Unknown Functional Status None recorded. Mental Status None recorded. Family History Relationship Description Onset Age of this Age Resolved Age Notes LastModified by Organization Details LastModified Time Father Arthritis [email or web address] Not availabl e 04/28/2023 13:34:10 Father Heart disease [email or web address] Not available 2022 13:34:28 Father Hyperlipidem ia Not available 2022 13:34:42 Mother Diabetes mellitus Not available 2022 13:34:18 Mother Heart disease [email or web address] Not available 2022 13:34:28 Mother Hyperlipidem ia [email or web address] Not available 2022 13:34:42 Mother Essential hypertension [email or web address] Not available 05/2023 13:34:50 Sister Rheumatism [email or web address] Not availab le 04/28/2023 13:34:59 Medical History Condition Response Diabetes Y Gynecological HistoryNo gynecological history recorded. Obstetrics History GPAL:G 0 P 0 0 0 0 Past Encounters Encounter ID Performer Location Encounter Start Date Encounter Closed Date Diagnosis/Indication Diagnosis SNOMED-CT Code Diagnosis ICD10 Code Diagnosis Note [id number] MD WHIT Levy [facility] [address] [facility] [address] [place] [address] 04/28/2023 12:59:53 04/28/2023 14:05:59 Pain in left lower limb 314175442 M79.605 Pain of left calf 778716 9082 952210 M79.662 Body mass index 40+ - severely obese 786194647 Z68.42 BMI 49 Type 2 bennett betes mellitus 53909888 E11.9 [id number] MD WHIT Jacobs [address] [facility] [address] [place] [place] [address] 05/07/2023 09:13:35 05/07/2023 10:25:36 Effusion of joint of left knee 0701023541 33649 M25.462 Effusion of joint 527293 008 M25.40 [id number] MD WHIT Jacobsmelonie [address] [facility] [address] [place] [place] [address] 05/21/2023 09:39:09 05/21/2023 10:16:35 Osteoarthritis of left knee joint 0685579128 91816 M17.12 [id number] MD WHIT Jacobs [address] [facility] [address] [facility] [place] [address] 08/31/2023 15:46:10 08/31/2023 16:18:33 Osteoarthritis of left knee joint 0414404735 19340 M17.12 [id number] MD WHIT Jacobs [address] [facility] [address] [place] [address] 11/10/2023 15:12:40 11/10/2023 15:47:51 Effusion of joint of left knee 8572304709 56686 M25.462 Left Osteoarthr itis of left knee joint 3219741274 21148 M17.12 [id number] MD WHIT Jacobs [facility] [address] [facility] [address] [place] [address] 02/09/2024 15:27:26 02/09/2024 15:39:58 Osteoarthritis of left knee joint 6561097164 59543 M17.12 Follow-up orthopedic assessment 698993474 Z47.89 Additional diagnosis detail: Encounter for orthopedic follow-up care [id number] MD WHIT Jacobs [facility] [address] [facility] [address] [place] [address] 08/17/2024 13:56:40 08/17/2024 14:38:14 Osteoarthritis of left knee joint 5653679820 27488 M17.12 Health Concerns Section Related Observation LastModified by Organization Detai ls LastModified Time None Recorded Concern Status LastModified by Organization Details LastModified Time None Recorded Advance Directives Directive None Recorded Payers Encounter Date Sequence Insurance Name Policy Number Policy Nieves Covered Member ID Nieves Member ID Guarantor Name 05/21/2023 1 [facility] [id number] Komal Lujanond [id number] Komal Corona 08/31/2023 1 [facility] [id number] Komal Lujanond [id number] Komal Corona 11/10/2023 1 [facility] [id number] Komal Marieblond [id number] Komal Corona 02/09/2024 1 [facility] [id number] Komal Marieblond [id number] Komal Corona 08/17/2024 1 [facility] [id number] Komal Marieblond [id number] Komal Corona Notes Date Note Type Note [...] studies were negative. MARY SCHWARZ PA-C [address] [facility] [address], [place], [address], [place] [facility] 05/21/2023 12:41:11 08/31/2023 text/html Patient is a 57-year-old female who presents today with stable left knee pain. She was last seen 3 months ago and had undergone a corticosteroid injection. She was having difficulty finding a brace that was effective. She did find 1 at [facility]. She is taking Advil on a as needed basis. She also notices the weather causing some increased discomfort. RADHA BOUCHER PA-C [address] [facility],[address] [facility], [place], [address], [place] [facility] 08/31/2023 16:43:18 11/10/2023 text/html Pleasant 58-year [...] left knee joint. MARY SCHWARZ PA-C [address] [facility], [place], [address], [place] [facility] 11/11/2023 07:37:02 02/09/2024 text/html Pleasant 58-year [...] left knee joint. MARY SCHWARZ PA-C [address] [facility],[address] [address], [place], [address], [place] [facility] 02/09/2024 15:44:34 08/17/2024 text/html 58-year-old fema [...] this year and again in June at [facility]. She states that it caused a temporary worsening of her pain but it since settled down. She reports that she uses a brace on her own. MARY MCKEON PA-C [address] [facility] [address], [place], [address], [place] [facility] 08/17/2024 14:34:22 OBGyn Episode No OBEpisode recorded.
--- OUTSIDE RECORDS SUMMARY | 2025-03-05 07:54 | XMS_ITS | Clinical Summary ---
Author Organization [facility] Address [address] [id number] Care Team Providers Care Assembly Machine Operator Name Role Phone Heladio Wang MD Primary Care Provider [phone] Allergies No known active allergies Medications Medication [...] age to complete this topic Care Teams Assembly Machine Operator Relationship Specialty Start Date End Date Heladio Wang MD [address] [place] [address] PCP - General Internal Medicine 01/19/20
--- OUTSIDE RECORDS SUMMARY | 2025-03-05 07:54 | XMS_ITS ---
[facility] Organization [facility] Address [address] [facility] [place] [address] Care Team Providers Care Physician Obstetrician Name Role Phone Michaela Corbett MD Primary Care Provider Unavaila Evelio Perez Unavailable [phone] Encounters Encounter Location Date [facility] [address] [place] [address] 03/01/2024 Evelio Mullen Plan Of Treatment No Information Progress Notes * Lana CALDERONOB: 4 (59 yo F)Acc No.[id number]:03/01/2024 Progress Note Patient:?Komal CALDERON Provider:?Evelio Mullen DPM :1965???Age:58 Y???Sex:Female D ate:03/01/2024 Address:[address] [place], [place] [address] Pcp:Michaela Corbett MD Subjective: * Chief Complaints: * ??? * Medical History:? Objective: * Vitals:? Assessment: Plan: * Treatment: * Images: * The named appointment provid er may or may not be the originator of this progress note, and it is not deemed complete until electronically signed by the appointment provider. Sign off status: Pending * Provider:?Evelio Mullen DPM Date:?2023 Generated for Luisa llamas/Layla/Tatesmitting on:?03/05/2025 07:53 AM EDT
--- OUTSIDE RECORDS SUMMARY | 2025-03-05 07:54 | XMS_ITS ---
Author Organization [facility] Address [address] [facility] [place] [address] Care Team Providers Care Manager Store Name Role Phone Michaela Corbett MD Primary Care Provider Unavaila Evelio Perez Unavailable [phone] REASON FOR VISIT Fee for records request? Encounters Encounter Location Date [facility] [address] [address] 03/27/2024 Evelio Mullen Plan Of Treatment No Information Progress Notes * Gisselle CORONAeDOB: 4 (58 yo F)Acc No.[id number]:03/27/2024 Patient:?Komal Corona :1965???Age:58 Y???Sex:Female Address:[address] [place] [address], [address] * true * Date:? Generated for Printi ng/Layla/eTransmitting on:?03/05/2025 07:54 AM EDT
--- OUTSIDE RECORDS SUMMARY | 2025-03-05 07:54 | XMS_ITS | Patient Health Record ---
Author Organization [facility] Address [address] [place] [address] Care Team Providers Care Copier Field Service Technician Name Role Phone Michaela Corbett MD Primary Care Provider Unavaila Evelio Perez Unavailable [phone] Allergies No Known Allergies Reason For Referral [...] Problem Acquired hammer toe of right foot (47781323681243 05) Other hammer toe(s) (acquired), right foot (M20.41) Active confirmed Problem Type 2 diabetes mellitus with peripheral angiopathy (535198349) Type 2 diabetes mellitus with diabetic peripheral angiopathy without gangrene (E11.51) Active confirmed Problem Acquired hammer toe of left foot (35603975200981 03) Other hammer toe(s) (acquired), left foot (M20.42) Active confirmed Encounters Encounter Location Date Provider Diagnosis [facility] [address] [facility] [address] [place] [address] 03/27/2024 Evelio Mullen Plan Of Treatment Pending Test Test Name Order Date [id number] NAIL, 6 OR MORE 12/15/2023 99918-Vcrfwgjy Plate 01/12/2024 46145-Taakkwmt Plate Each Additional 13258-TWHO SKIN LESIONS, 2 TO 4 12/15/19 Insurance Providers Payer Name Payer Address Payer Phone Subscriber Number Group Number Insured Name Patient Relationship to Insured Coverage Start Date Coverage End Date [facility] [address] [place] [address] [id number] Komal Corona Self - patient is the insured Medical (General) History Medical History History ICD Code Diabetic CAD Surgical History Surgery Date(Month/Year)
[2025-03-05 08:11] VITALS: BP 126/70; PULSE 87; TEMP 37; O2SAT 97; BMI 47.4
--- NOTE | 2025-03-05 08:11 | A.OFFPC_ITS ---
Vital Signs 03/05/25 08:11 Height 5 ft 1.5 in Weight 255 lb BMI 47.4 BP 126/70 Blood Pressure Location Lt brachial Position Sitting Pulse 87 Pulse Source Pulse Oximeter Temp 98.6 F Temp Source Oral Pulse Oximetry (%) 97 Oxygen Delivery Method Room Air Intake Visit Reasons: 3m follow up/Insurance inactive Intake Note: Pt is here today for 3 months follow up visit. Allergies No Known Allergies Allergy (Verified 03/05/25 08:11) Medication List - Last Reconciled 03/05/25 by Michaela Corbett MD aspirin 81 mg PO DAILY atorvastatin 20 mg PO DAILY blood sugar diagnostic (FreeStyle Lite Strips) use twice daily to test blood sugar blood-glucose meter (FreeStyle Lite Meter kit) As directed empagliflozin (Jardiance) 25 mg PO QAM lancets (FreeStyle Lancets) use 1 strip to test blood sugar twice a day metformin ER 1,000 mg (2 x 500 mg) PO BID semaglutide (Ozempic) 0.25 mg (0.368 mL) subcut QWEEK Tobacco use date assessed: 03/05/25 Dental Screening Dental Screen Date: 02/21/24 HPI 3m follow up/Insurance inactive HPI Details Patient presents for the follow-up of type 2 diabetes and hyperlipidemia stable on current medications. Patient did not start taking Ozempic because her insurance did not cover it. 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 1. Little interest or pleasure in doing things: not at all 2. Feeling down, depressed, or hopeless: not at all 3. Trouble falling or staying asleep, or sleeping too much: not at all 4. Feeling tired or having little energy: not at all 5. Poor appetite or overeating: not at all 6. Feeling bad about yourself - or that you are a failure or have let yourself or your family down: not at all 7. Trouble concentrating on things, such as reading the newspaper or watching television: not at all 8. Moving or speaking so slowly that other people could have noticed. Or the opposite - being so fidgety or restless that you have been moving around a lot more than usual: not at all 9. Thoughts that you would be better off or of hurting yourself in some way: not at all Total score: 0 Depression Screening Interpretation: Negative Depression Screening Done: Yes 73859 - PHQ-9 Billing: Yes Source: Developed by Drs. Pete Chung, Iris Oh, Leon Lopez and colleagues, with an educational lamont from [employer]. Thrive Questionnaire Date Thrive assessed: 03/05/25 I am a: Patient What is your living situation today?: I have a steady place to live Within the past 12 months, did the food you bought not last and you didn't have the money to get more?: Never true Within the past 12 months, did you worry whether your food would run out before you got money to buy more?: Never true Do you have trouble paying for medicines?: No Do you have trouble getting transportation to medical appointments?: No Do you have trouble paying your heating and electricity bill?: No Do you have trouble taking care of your child, family member or friend?: No Do you have trouble with day-to-day activities such as bathing, preparing meals, shopping, managing finances, etc.?: No Are you currently unemployed and looking for a job?: No Are you interested in more education?: No Please select the resources that you would like help with: None Currently or been in a relationship where the following occur: No concerns reported THRIVE Score: 0 AUDIT C Alcohol Use Questionnaire (AUDIT-C) 1. How often do you have a drink containing alcohol?: Never 3. How often do you have six or more drinks on one occasion?: Never Total Score: 0 VICTORIANO-7 AMB Questionnaire VICTORIANO-7 Date VICTORIANO - 7 assessed: 03/05/25 Feeling nervous, anxious, or on edge: 0 = Not at all Not being able to stop or control worryin = Not at all Worrying too much about different things: 0 = Not at all Trouble relaxin = Not at all Being so restless that it is hard to sit still: 0 = Not at all Becoming easily annoyed or irritable: 0 = Not at all Feeling afraid as if something awful might happen: 0 = Not at all Total VICTORIANO-7 score (0-4 normal; 5-9 mild; 10-14 moderate; 15-21 severe): 0 Source: Developed by Drs. Pete Chung, Iris Oh, Leon Lopez and colleagues, with an educational lamont from [employer]. VICTORIANO-7 Assessment Billing VICTORIANO-7 Assessment Tool: VICTORIANO-7 Assessment 72408 Review of Systems Const All systems reviewed & are unremarkable except as noted in HPI and below ENT Reports no additional complaints Card Reports no additional complaints Resp Reports no additional complaints GI Reports no additional complaints Reports no additional complaints Physical exam (Primary Care) Vital Signs: Last Vital Signs Temp 98.6 F 03/05/25 08:11 Pulse 87 03/05/25 08:11 BP 126/70 03/05/25 08:11 Pulse Ox 97 03/05/25 08:11 Oxygen Delivery Method Room Air 03/05/25 08:11 BMI result Body Mass Index 47.4 Tobacco/Smoking Status: Tobacco use Status Tobacco use date assessed 03/05/25 03/05/25 08:18 Patient Tobacco Use Status Never used Tobacco 03/05/25 08:18 e-Cigarette/Vaping Use Never Used 03/05/25 08:18 PHQ-9: PHQ-9 Score PHQ-9: Total score 0 03/05/25 08:18 Depression Screening Interpretation: Negative Thrive Assessment: Date of Thrive Assessment Date Thrive assessed 03/05/25 03/05/25 08:18 Currently or been in a relationship where the following occur: No concerns reported HENMT Head: Yes normal to inspection Face and sinus: Yes normal facial exam Neck Neck: Yes supple Resp Effort & Inspection: normal respiratory effort Auscultation: clear to auscultation bilaterally Cardio Rhythm: regular rhythm Heart sounds: S1 normal heart sound present and S2 normal heart sound present GI Inspection: Yes normal to inspection Palpation (GI): Soft to palpation Percussion: Yes normal to percussion Auscultation: normal bowel sounds Extrem Other: Diabetic foot exam skin is intact monofilament and vibration sensation intact General: Yes no clubbing, cyanosis or edema Coding Level of Care Code Est Pt Level 4 (63594) Diagnoses Hyperlipidemia E78.5 DM type 2 (diabetes mellitus, type 2) E11.9 Obese E66.9 Additional Codes VICTORIANO-7 Assessment Billing - VICTORIANO-7 Assessment Tool: VICTORIANO-7 Assessment 57082 ([id number]) PHQ-9 - 78423 - PHQ-9 Billing: Yes ([id number]) Assessment & Plan Assessment & Plan (1) Hyperlipidemia: Code(s): E78.5 - Hyperlipidemia, unspecified Category: Medical Plan: Continue statin (2) DM type 2 (diabetes mellitus, type 2): Code(s): E11.9 - Type 2 diabetes mellitus without complications Category: Medical Plan: A1c is 7.5 unchanged from October. ADA diet increase exercise weight loss discussed with the patient. Patient declined taking GLP 1 agonist. Glipizide 2.5 mg daily will be added. Patient will follow-up in 3 months with a fasting labs before (3) Obese: Comment: pt declined GLP 1 agonist Code(s): E66.9 - Obesity, unspecified Category: Medical Plan: Decreasing caloric intake increasing physical activity and weight loss discussed with the Orders: Orders Hemoglobin A1c 3 Months E11.9 - Type 2 diabetes mellitus without complications, E66.9 - Obesity, unspecified, E78.5 - Hyperlipidemia, unspecified Comprehensive [place]. Panel Fast 3 Months E11.9 - Type 2 diabetes mellitus without complications Lipid Panel 3 Months E11.9 - Type 2 diabetes mellitus without complications, E66.9 - Obesity, unspecified, E78.5 - Hyperlipidemia, unspecified Medications: New glipizide ER 2.5 mg PO DAILY 90 tabs 1RF Discontinued semaglutide (Ozempic) for 4 weeks Discontinued Reason: Doctor's Order 0.25 mg (0.368 mL) subcut QWEEK 3 mL 2RF E11.9 - Type 2 diabetes mellitus without complications
== END 2025-03-05 09:31 | disposition home or self-care (01) ==
PROVIDERS: PCP Internal Medicine; Visit Provider Internal Medicine
DX: E11.69 Type 2 diabetes mellitus with other specified complication (principal); E78.5 Hyperlipidemia, unspecified; E66.9 Obesity, unspecified; Z68.42 Body mass index [BMI] 45.0-49.9, adult

== ENCOUNTER → 2025-03-05 07:49 | Outpatient (BNVA) | payer BC, SELFPAY | PROVIDERS: PCP Internal Medicine; Visit Provider Internal Medicine | DX: E78.5 Hyperlipidemia, unspecified (principal); E11.9 Type 2 diabetes mellitus without complications; E66.9 Obesity, unspecified; Z68.42 Body mass index [BMI] 45.0-49.9, adult; Z79.84 Long term (current) use of oral hypoglycemic drugs; Z79.899 Other long term (current) drug therapy | CPT/HCPCS: 96127 ==

== ENCOUNTER 2025-05-31 08:20 | Outpatient (AMB) | payer SELFPAY ==
--- OUTSIDE RECORDS SUMMARY | 2024-03-01 12:00 | XMS_ITS ---
Author Organization [facility] Address [address] [facility] [place] [address] Care Team Providers Care Civil[employer] Officer Name Role Phone Michaela Corbett MD Primary Care Provider Unavaila Evelio Perez Unavailable [phone] Encounters Encounter Location Date [facility] [address] [place] [phone] 03/01/2024 Evelio Mullen Plan Of Treatment No Information Progress Notes * Lana CALDERONOB: 4 (59 yo F)Acc No.[id number]:03/01/2024 Progress Note Patient: Komal NUÑEZ Provider: Jared Mullen DPM :1965 A ge:58 Y S ex:Female Date:03/01/2024 Address:[address] [place] [id number] Pcp:Michaela Corbett MD Subjective: * Chief Complaints: * * Medical History: Objective: * Vitals: Assessment: Plan: * Treatment: * Images: * The named appointment provid er may or may not be the originator of this progress note, and it is not deemed complete until electronically signed by the appointment provider. Sign off status: Pending * Provider: Jared Mullen DPM Date: 0 03/01/2024 Generated for Luisa llamas/Layla/Gt on: 0 05/31/2025 08:28 AM EDT
--- OUTSIDE RECORDS SUMMARY | 2025-05-31 08:29 | XMS_ITS | Data Portability ---
Author Organization [place] [facility] Address [address] [place] [address] Care Team Providers Care Quarrying Manager Name Role Phone MARTIN DENT Primary Care [...] findings at length with the patient today. We discussed the nature and etiology of this problem along with current treatment options. We discussed the expected course and outcomes and what to expect. We also discussed risks and benefits. All of their questions were answered today, and there was exhibited understanding and comprehension of all that was discussed. Time Spent: 10 minutes were spent reviewing previous imaging and charting. 10 minutes were spent obtaining patient history. 5 minutes were spent on physical exam. 5minutes were spent explaining diagnosis and assessment. Today's [...] basis. All questions answered to her satisfaction. [email or web address] Not available 08/31/2023 16:42:59 11/10/2023 11/10/2023 58-year-old [...] findings at length with the patient today. We discussed the nature and etiology of this problem along with current treatment options. We discussed the expected course and outcomes and what to expect. We also discussed risks and benefits. All of their questions were answered today, and there was exhibited understanding and comprehension of all that was discussed. Time Spent: 10 minutes were spent reviewing previous imaging and charting. 10 minutes were spent obtaining patient history. 5 minutes were spent on physical exam. 5minutes were spent explaining diagnosis and assessment. Today's [...] findings at length with the patient today. We discussed the nature and etiology of this problem along with current treatment options. We discussed the expected course and outcomes and what to expect. We also discussed risks and benefits. All of their questions were answered today, and there was exhibited understanding and comprehension of all that was discussed. Time Spent: 10 minutes were spent reviewing previous imaging and charting. 10 minutes were spent obtaining patient history. 5 minutes were spent on physical exam. 5minutes were spent explaining diagnosis and assessment. Today's documentation was made using voice recognition software. This note may contain grammatical errors secondary to the software. Not available 02/09/2024 15:44:07 08/17/2024 08/17/2024 58-year-old female with left knee pain. History, examination and x-rays are consistent with advanced osteoarthritis with [id number] articulation. After discussion regarding treatment options she [...] knee, 4 or more view 2023 024 [facility], [address], [place], [address], 14:45:54 Medication Orders Marcaine (PF) 0.5 % (5 mg/mL) injection solution 2023 024 [email or web address] [facility], [address], [place], [address], 14:45:54 lidocaine (PF) 100 mg/5 mL (2 %) injection syringe 2023 024 [facility], [address] [place] [address], [address], 4 14:45:54 triamcinolo ne acetonide 40 mg/mL suspension for injection 2023 024 [facility], [address] [place] [address], [address], 4 14:45:54 Kenalog 40 mg/mL suspension for injection 2022 023 [place] [address] [facility], [address] [place] [address], [address], 3 07:36:22 lidocaine (PF) 10 mg/mL (1 %) injection solution 2022 023 [place] [address] [facility], [address] [place] [address], [address], 3 07:36:22 Kenalog 40 mg/mL suspension for injection 2022 023 [place] [address] [facility], [address] [place] [address], [address], 3 12:39:42 lidocaine (PF) 10 mg/mL (1 %) injection solution 2022 023 [place] [address] [facility], [address] [place] [address], [address], 3 12:39:42 Patient TargetsNo targets recorded. Patient Instructions Encounter Date Encounter Id Patient Instructions Last Modified By Organization Details Last Modified Time 05/21/2023 [id number] You have been provided with a cortisone [...] following the injection. This is called a flare . To help minimize the chances of this, please see the post-injection instructions above. There is a less than 1% chance of an infection. If you notice any signs of infection (redness, warmth, drainage, fever greater than 100 degrees) please call our office or contact us through the portal [employer]. Not available 05/21/2023 12:39:52 11/10/2023 [id number] You have been provided with a cortisone [...] following the injection. This is called a flare . To help minimize the chances of this, please see the post-injection instructions above. There is a less than 1% chance of an infection. If you notice any signs of infection (redness, warmth, drainage, fever greater than 100 degrees) please call our office or contact us through the portal [employer]. Not available 11/11/2023 07:35:38 08/17/2024 [id number] view X-ray sona dy obtained during today's office encounter show evidence of severe left knee osteoarthritis. There is joint space narrowing, subchondral sclerosis and marginal osteophytosis. Kellgren-Fly grade 3. No evidence of acute fracture or osteolytic findings. Not available 08/17/2024 14:27:41 Reason for Referral None Reported. Results Created Date Observation Date Name Description Value Unit Range Abnormal Flag Note LastModifiedBy Organization Detail LastModifiedTime 04/28/20 23 04/28/2023 US, duple x, venou s, lower extre mity No observ ation record ed. [email or web address] [facility] [address] [place], [address], 04/29/2023 15:03:05 Result Notes None recorded. Problems Name Problem SNOMED Code Status Onset Date Resolution Date Notes Provider Name and Address Organization Details Recorded Time Effusion of joint of left knee 3539577967524 05 Active 2022 MARY SCHWARZ PA-C [address], [place], [address], [place] [facility], P 3 10:04:41 Effusion of joint 802010480 Active 2022 MARY SCHWARZ PA-C [address], [place], [address], [place] [facility], P 3 10:04:53 Osteoarthri tis of left knee joint 0919434521867 09 Active 2022 MARY SCHWARZ PA-C [address], [place], [address], [place] [facility], P 3 12:39:00 Pain of left calf 1277309513044 109 Active 2022 RADHA BOUCHER PA-C [address], [place], [address], [place] [facility], P 3 14:06:32 Pain in left lower limb 353365722 Active 2022 RADHA BOUCHER PA-C [address], [place], [address], [place] [facility], P 3 14:06:38 Type 2 diabetes mellitus 63672173 Active 2022 RADHA BOUCHER PA-C [address], [place], [address], [place] [facility], P 3 14:11:33 Problem Notes None recorded. Procedures Surgical History Date Name Laterality Status Provider Name and Address Organization Details Recorded Time 4 MJG Knee injection w/US completed MARY MCKEON PA-C [address] [facility],[address] [facility], [place], [address], [place] [facility], P 08/17/2024 14:26:58 3 Knee Joint/Bursa Asp & Inj completed MARY SCHWARZ PA-C [address] [facility],[address] [facility], [place], [address], [place] [facility], P 11/11/2023 07:34:13 3 Knee Joint/Bursa Asp & Inj completed MARY SCHWARZ PA-C [address] [facility] [address] [facility], [place], [address], [place] [facility], P 05/21/2023 07:52:08 3 Knee Joint/Bursa Asp & Inj completed MARY SCHWARZ PA-C [address] [facility],[address] [facility], [place], [address], [place] [facility], P 05/07/2023 12:36:47 Imaging Results None recorded. Procedure Notes None recorded. Medical Equipment None [...] FIRST DAY, THEN TAKE ONE TABLET DAILY RASHI Ayala 05/11 completed Not Available Not Available Not [...] [facility] AT [facility] 08/31 completed Not Available Not Available [...] Updated DateTime 05/21/[address] [facility] P 05/21/2023 09:55:47 Date Recorded Body height Body mass index (BMI) Body weight Provider Name and Address Organization Details Last Updated DateTime 08/31/2023 154.94 cm 49.1 kg/m2 337983.[address] [place] - [facility] 08/31/2023 15:57:26 Social History None recorded. Functional Status Question Answer Note LastModified by Organizat ion Details LastModified Time Do you use any illicit or recreational drugs? No [email or web address] Information not available 04/28/2023 Do you or have you ever used any other forms of tobacco or nicotine? No [email or web address] Information not available 04/28/2023 What is your level of alcohol consumption? None Information not available 04/28/2023 Mental Status None recorded. Family History Relationship Description Onset Age of this Age Resolved Age Notes LastModified by Organization Details LastModified Time Father Arthritis [email or web address] Not availabl e 04/28/2023 13:34:10 Father Heart disease [email or web address] Not available 2022 13:34:28 Father Hyperlipidem ia [email or web address] Not available 2022 13:34:42 Mother Diabetes mellitus [email or web address] Not available 2022 13:34:18 Mother Heart disease [email or web address] Not available 2022 13:34:28 Mother Hyperlipidem ia Not available 2022 13:34:42 Mother Essential hypertension [email or web address] Not available 05/2023 13:34:50 Sister Rheumatism [email or web address] Not availab le 04/28/2023 13:34:59 Medical History Condition Response Diabetes Y Gynecological HistoryNo gynecological history recorded. Obstetrics History GPAL:G 0 P 0 0 0 0 Past Encounters Encounter ID Performer Location Encounter Start Date Encounter Closed Date Diagnosis/Indication Diagnosis SNOMED-CT Code Diagnosis ICD10 Code Diagnosis Note [id number] MIRIAN ANTONIO [facility] [address] [address] 04/28/2023 12:59:53 04/28/2023 14:05:59 Pain in left lower limb 909810389 M79.605 Pain of left calf 095704 9019 578039 M79.662 Body mass index 40+ - severely obese 095895957 Z68.42 BMI 49 Type 2 bennett betes mellitus 81268302 E11.9 [id number] MIRIAN DURHAM [place] [address], [place] [address] 05/07/2023 09:13:35 05/07/2023 10:25:36 Effusion of joint of left knee 8964320172 17264 M25.462 Effusion of joint 729203 008 M25.40 [id number] MIRIAN DURHAM [place] [address] [place] [address] 05/21/2023 09:39:09 05/21/2023 10:16:35 Osteoarthritis of left knee joint 3380331728 75948 M17.12 [id number] MIRIAN ANTONIO [place] [address] [place] [address] 08/31/2023 15:46:10 08/31/2023 16:18:33 Osteoarthritis of left knee joint 9828505320 81402 M17.12 [id number] MIRIAN DURHAM [place] [address] [place] [address] 11/10/2023 15:12:40 11/10/2023 15:47:51 Effusion of joint of left knee 2770505195 38041 M25.462 Left Osteoarthr itis of left knee joint 4714466055 36975 M17.12 [id number] MIRIAN DURHAM [place] [address] [place] [address] 02/09/2024 15:27:26 02/09/2024 15:39:58 Osteoarthritis of left knee joint 6336735083 82053 M17.12 Follow-up orthopedic assessment 833636799 Z47.89 Additional diagnosis detail: Encounter for orthopedic follow-up care [id number] MIRIAN BRADFORD [place] [address] [place] [address] 08/17/2024 13:56:40 08/17/2024 14:38:14 Osteoarthritis of left knee joint 2805102797 04512 M17.12 Health Concerns Section Related Observation LastModified by Organization Detai ls LastModified Time None Recorded Concern Status LastModified by Organization Details LastModified Time None Recorded Advance Directives Directive None Recorded Payers Insurance Date Sequence Insurance Name Policy Number Policy Nieves Covered Member ID Nieves Member ID Guarantor Name 09/26/2024 1 [facility] [id number] Komal Ewelina Corona [id number] Komal Corona Notes Date Note Type Note [...] studies were negative. MARY SCHWARZ PA-C [address] [facility] [address], [place], [address], [place] [facility], P 05/21/2023 12:41:11 08/31/2023 text/html Patient is a 57-year-old female who presents today with stable left knee pain. She was last seen 3 months ago and had undergone a corticosteroid injection. She was having difficulty finding a brace that was effective. She did find [address] [facility]. She is taking Advil on a as needed basis. She also notices the weather causing some increased discomfort. RADHA BOUCHER PA-C [address] [facility] [address], [place], [address], [place] [facility], P 08/31/2023 16:43:18 11/10/2023 text/html Kari 58-year -old female degenerative joint disease of [...] left knee joint. MARY SCHWARZ PA-C [address] [facility],[address] [facility], [place], [address], [place] [facility], P 11/11/2023 07:37:02 02/09/2024 text/html Kari 58-year -old female degenerative joint disease of the left knee had aspiration and cortisone injectionL knee. cortisone 11/10/23. She states she is doing quite well and currently asymptomatic No interval change in history. Denies fevers, chills, flulike symptoms, cough, shortness of breath. She also denies any warmth or redness overlying the left knee joint. MARY SCHWARZ PA-C [address] [facility],[address], [place], [address], [place] [facility], P 02/09/2024 15:44:34 08/17/2024 text/html 58-year-old fema [...] this year and again in June at [facility]. She states that it caused a temporary worsening of her pain but it since settled down. She reports that she uses a brace on her own. MARY MCKEON PA-C [address], [place], [address], [place] [facility], P 08/17/2024 14:34:22 OBGyn Episode No OBEpisode recorded.
--- OUTSIDE RECORDS SUMMARY | 2025-05-31 08:29 | XMS_ITS ---
Author Name [facility] Organization Unknown History of Medication Use Medication Directions Dispensed Refills Start Date End Date Status lidocaine (PF) 10 mg/mL (1 %) injection solution Take 2 mL by injection route. 3 active polyethylene glycol 3350 17 gram/dose oral powder TAKE 238 GRAMS ORALLY ONCE DIRECTED BY THE [facility]OLOGY [facility]PARTMENT AT THE [facility] 08/31/20 23 completed cyclobenzaprine 5 mg tablet TAKE ONE TABLET BY MOUTH THREE TIMES A DAY 05/07/20 23 completed lidocaine (PF) 10 mg/mL (1 %) injection solution active atorvastatin 20 mg tablet TAKE ONE TABLET BY MOUTH EVERY DAY active atorvastatin 20 mg tablet TAKE ONE TABLET BY MOUTH EVERY DAY active azithromycin 250 mg tablet TAKE TWO TABLETS BY MOUTH ONE DOSE ON THE FIRST DAY, THEN TAKE ONE TABLET DAILY THEREAFTER. active Jardiance 25 mg tablet TAKE ONE TABLET BY MOUTH EVERY DAY IN THE MORNING active polyethylene glycol 3350 17 gram/dose oral powder TAKE 238 GRAMS ORALLY ONCE DIRECTED BY THE GASTROENTEROLOGY DEPARTMENT AT THE [facility] active prednisone 50 mg tablet TAKE ONE TABLET BY MOUTH EVERY DAY active Problems Problem Status Onset Date Problem Type Date of Resoluti on Source Effusion of joint active 2023-05-07 ProblemAct [facility] Pain of left calf active 2023-04-28 ProblemAct [facility] Effusion of joint of left knee active 2023-05-07 ProblemAct [facility] Pain in left lower limb active 2023-04-28 ProblemAct [facility] Osteoarthritis of left knee joint active 2023-05-21 ProblemAct [facility] Type 2 diabetes mellitus active 2023-04-28 ProblemAct [facility] Encounters Encounter Type Encounter Reason Primary Diagnosis Location Date Ambulatory [facility] 11/18/2024 Ambulatory [facility] 08/18/2024 Ambulatory [facility] 08/17/2024 Ambulatory [facility] 08/17/2024 Ambulatory [facility] 08/17/2024 Ambulatory [facility] 08/17/2024 Ambulatory [facility] 02/09/2024 Ambulatory [facility] 12/30/2023 Ambulatory [facility] 12/21/2023 Ambulatory [facility] 11/10/2023 Ambulatory [facility] 08/31/2023 Ambulatory [facility] 08/27/2023 Ambulatory [facility] 07/15/2023 Ambulatory [facility] 07/06/2023 Ambulatory [facility] 06/02/2023 Ambulatory [facility] 06[facility]01/2023 Ambulatory [facility] 05/31/2023 Ambulatory [facility] 05/10/2023 Ambulatory [facility] 05/10/2023 Ambulatory [facility] 05/05/2023 Ambulatory [facility] 05/03/2023 Ambulatory [facility] 05/03/2023 Amb[facility] 04/28/2023 Amb[facility] 04/28/2023 Ambulatory [facility] 04/28/2023 Ambulatory [facility] 04/27/2023
--- OUTSIDE RECORDS SUMMARY | 2025-05-31 08:29 | XMS_ITS | Clinical Summary ---
Author Organization [facility] Address [address] [id number] Care Team Providers Care Education Program Manager Name Role Phone Heladio Wang MD Primary Care Provider [phone] Allergies No known active allergies Medications Medication [...] (1 of 2) 2014 Influenza Vaccine (#1) 2025 RSV Adult > 60+ Yrs or Pregn ant (1 - 1-dose 75+ series) 2039 Hepatitis B Vaccines Aged Out No long er eligible based on patient's age to complete this topic RSV Ped < 20 months Aged Out No longe r eligible based on patient's age to complete this topic Care Teams Education Program Manager Relationship Specialty Start Date End Date Heladio Wang MD [address] [place] [address] PCP - General Internal Medicine 01/19/20
[2025-05-31 08:36] VITALS: BMI 47.9
--- NOTE | 2025-05-31 08:36 | A.OFFVIS_ITS ---
VS Expanded 05/31/25 08:36 Height 5 ft 1.5 in Weight 257 lb 11.526 oz BMI 47.9 Intake Visit Reasons: T2DM Allergies No Known Allergies Allergy (Verified 03/05/25 08:11) Nutrition Presentation Details: Pt presents for MNT 6 m f/u for T2DM Pt reports today's FBG 125 m/dl , seldom monitors BG Pt reports challenges with not feeling full Most meals are at restaurants or snacks when at home Physical activity : uses cane to walk, tries to increase steps by walking further, and walking at work food frequency fruits: 0-1/d ve/d dairy : 2-3/d fish: 1x/wk pastries and similar ++ water : 24 oz/d BS Monitoring Most Recent Diabetes Results: Microalb/Creat Ratio, (<30) 9.6 ug/mg cr 02/24/25 Cholesterol, (<200) 140 mg/dL 02/24/25 HDL Cholesterol, (>40) 34 mg/dL L 02/24/25 Triglycerides, (<150) 117 mg/dL 02/24/25 Creatinine, (0.5-1.4) 0.67 mg/dL 02/24/25 BUN, (9-16) 22 mg/dL H 02/24/25 Sodium, (135-145) 141 mmol/L 02/24/25 Potassium, (3.3-5.1) 4.3 mmol/L 02/24/25 Chloride, (96-108) 109 mmol/L H 02/24/25 Carbon Dioxide, (22-29) 23 mmol/L 02/24/25 Calcium, (8.4-10.2) 9.0 mg/dL 02/24/25 AST, (5-31) 36 U/L H 02/24/25 ALT, (0-31) 44 U/L H 02/24/25 Total Protein, (6.5-8.0) 6.8 g/dL 02/24/25 Albumin, (3.5-5.0) 4.2 g/dL 02/24/25 [facility] Medical History (Updated 03/05/25 @ 09:00 by Michaela Corbett MD) Overweight Sleep apnea Osteopenia Annual physical exam (~06/11/23) Mammogram normal Normal Pap smear Hyperlipidemia DM type 2 (diabetes mellitus, type 2) Surgical History Hx of colonoscopy Status post surgical removal of malignant neoplasm of skin Surgical history unknown Family History Mother Diabetes Kidney failure HTN (hypertension) CHF (congestive heart failure) Father Heart problem Social History Household Members Other:: single, 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, 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 Housing: House Alcohol intake: current Alcohol intake frequency: holidays/special occasions only Patient Tobacco Use Status: Never used Tobacco e-Cigarette/Vaping Use: Never Used service: No Current occupational status: employed Cognitive needs: No Hearing needs: No Vision needs: Yes Assessment & Plan Assessment & Plan (1) DM type 2 (diabetes mellitus, type 2): Code(s): E11.9 - Type 2 diabetes mellitus without complications Category: Medical Plan: Wt: 117 Kg ( 03/2024 ), 115.9 kg(06/14), 11/14, 1116kg (02/13), 117 kg (06/15) Est kcal needs as per MSJ: 1700 (40% carb, 30% protein/fat) Est fluid needs as per 25-30 ml/d: 3500 Est prot per day as per 1 g/kg bw: 117 Recommend fiber intake : 8-10 g per day and gradually increase to 25-28 g per day for women and 35-38 g for men or as tolerated Recommend sodium intake per day : less than 2000 mg Educated patient on: ( R = reviewed V = verbalizes understanding N/R = needs review N/A = not applicable * Food sources of carbohydrate, adequate serving sizes and its role in various health conditions: R * Differences between complex carbohydrates a simple carbohydrates, role of fiber in diet: R * Lean protein sources of foods: R * Differences between types of fats and role in diet (mono on saturated fat fatty acids, saturated fatty acids, trans fats): R basic * Food sources of sodium in salt and healthy modifications for heart health in kidney health: NR * Vitamins and minerals: R * Healthy plate method concept: R * Physical activity: Benefits a precaution: R * Dietary prevention of Hyperglycemia: R Patient Instructions: Increase fluids to 64 oz /day (water,almond milk, no sugar added tea, make a vegetable /fruit smoothie at home once a day (try 2 veg, 1 fruit/water Continue working on reducing sugars (pastries, cookies, sauces ) to promote weight loss Coding Level of Care Code Nutr Indiv Subseq (34059) Diagnoses DM type 2 (diabetes mellitus, type 2) E11.9 Time Spent (min) 30
== END 2025-05-31 09:08 | disposition home or self-care (01) ==
LOC: HO.ENCR 08:21
PROVIDERS: PCP Internal Medicine; Visit Provider Dietitian, Registered
DX: E11.9 Type 2 diabetes mellitus without complications (principal)

== ENCOUNTER → 2025-05-31 08:20 | Outpatient (BNVA) | payer BC, SELFPAY | PROVIDERS: PCP Internal Medicine; Visit Provider Dietitian, Registered | DX: E11.9 Type 2 diabetes mellitus without complications (principal) | CPT/HCPCS: 97803 ==

== ENCOUNTER 2025-06-02 10:20 | Outpatient (REF) | payer BC, SELFPAY ==
--- OUTSIDE RECORDS SUMMARY | 2025-06-02 10:24 | XMS_ITS | Data Portability ---
Author Organization [place] [facility] [place] Address [address] [place] [address] Care Team Providers Care Slot Operations Manager Name Role Phone MARTIN DENT Primary [...] basis. All questions answered to her satisfaction. [email or web address] Not available 08/31/2023 16:42:59 11/10/2023 11/10/2023 58-year-old [...] in indirect conjuction with Documenting Provider: Maximilian aRmos MD . He/She agrees with history, physical [...] x-rays are consistent with advanced osteoarthritis with [id number] articulation. After discussion regarding treatment options she [...] 4 or more view 2023 024 [facility], [address], [place], [address], 14:45:54 Medication Orders Marcaine (PF) 0.5 % (5 mg/mL) injection solution 2023 024 [email or web address] [facility], [address] [facility], [place], [address], 14:45:54 lidocaine (PF) 100 mg/5 mL (2 %) injection syringe 2023 024 [facility], [address] [place] [address], [address], 4 14:45:54 triamcinolo ne acetonide 40 mg/mL suspension for injection 2023 024 [facility], [address] [place] [address], [address], 4 14:45:54 Kenalog 40 mg/mL suspension for injection 2022 023 [place] [address] [facility], [address] [place] [address], [address], 3 07:36:22 lidocaine (PF) 10 mg/mL (1 %) injection solution 2022 023 [place] [address] [facility], [address] [place] [address], [address], 3 07:36:22 Kenalog 40 mg/mL suspension for injection 2022 023 [place] [address] [facility], [address] [place] [address], [address], 3 12:39:42 lidocaine (PF) 10 mg/mL (1 %) injection solution 2022 023 [place] [address] [facility], [address] [place] [address], [address], 3 12:39:42 Patient TargetsNo targets recorded. Patient Instructions Encounter Date Encounter Id Patient Instructions Last Modified By Organization Details Last Modified Time 05/21/2023 [id number] You have been provided with a cortisone [...] office or contact us through the portal [employer]. Not available 05/21/2023 12:39:52 11/10/2023 [id number] You have been provided with a cortisone [...] office or contact us through the portal [employer]. Not available 11/11/2023 07:35:38 08/17/2024 [id number] 7 view X-ray sona dy obtained during [...] extre mity No observ ation record ed. [email or web address] [facility] [address] [place], [address], 04/29/2023 15:03:05 Result Notes None recorded. Problems Name Problem SNOMED Code Status Onset Date Resolution Date Notes Provider Name and Address Organization Details Recorded Time Effusion of joint of left knee 5494903318155 05 Active 2022 MARY SCHWARZ PA-C [address], [place], [address], [place] [facility] 3 10:04:41 Effusion of joint 565652961 Active 2022 MARY SCHWARZ PA-C [address], [place], [address], [place] [facility], [facility] 3 10:04:53 Osteoarthri tis of left knee joint 1868145039951 09 Active 2022 MARY SCHWARZ PA-C [address], [place], [address], [place] [facility], [facility] 3 12:39:00 Pain of left calf 9764668622017 109 Active 2022 RADHA BOUCHER PA-C [address], [place], [address], [place] [facility], P 3 14:06:32 Pain in left lower limb 284641931 Active 2022 RADHA BOUCHER PA-C [address], [place], [address], [place] [facility], [facility] 3 14:06:38 Type 2 diabetes mellitus 50383509 Active 2022 RADHA BOUCHER PA-C [address], [place], [address], [place] [facility], [facility] 3 14:11:33 Problem Notes None recorded. Procedures Surgical History Date Name Laterality Status Provider Name and Address Organization Details Recorded Time 4 MJG Knee injection w/US completed MARY MCKEON PA-C [address] [facility],[address] [facility], [place], [address], [place] [facility], P 08/17/2024 14:26:58 3 Knee Joint/Bursa Asp & Inj completed MARY SCHWARZ PA-C [address] [facility],[address] [facility], [place], [address], [place] [facility], P 11/11/2023 07:34:13 3 Knee Joint/Bursa Asp & Inj completed MARY SCHWARZ PA-C [address] [facility], [place], [address], [place] [facility], P 05/21/2023 07:52:08 3 Knee Joint/Bursa Asp & Inj completed MARY SCHWARZ PA-C [address] [facility],[address] [facility], [place], [address], [place] [facility], P 05/07/2023 12:36:47 Imaging Results None recorded. [...] [facility] 08/31 completed Not Available Not Available [...] cm Heaven Sal[place] [facility] 05/21/2023 09:55:47 Date Recorded Body height Body mass index (BMI) Body weight Provider Name and Address Organization Details Last Updated DateTime 08/31/2023 154.94 cm 49.1 kg/m2 654436.[address] [place] [facility] 08/31/2023 15:57:26 Social History None recorded. Functional Status Question Answer Note LastModified by Organizat ion Details LastModified Time Do you use any illicit or recreational drugs? No [email or web address] Information not available 04/28/2023 Do you or have you ever used any other forms of tobacco or nicotine? No [email or web address] Information not available 04/28/2023 What is your level of alcohol consumption? None [email or web address] Information not available 04/28/2023 Mental Status None recorded. Family History Relationship Description Onset Age of this Age Resolved Age Notes LastModified by Organization Details LastModified Time Father Arthritis [email or web address] Not availabl e 04/28/2023 13:34:10 Father Heart disease [email or web address] Not available 2022 13:34:28 Father Hyperlipidem ia [email or web address] Not available 2022 13:34:42 Mother Diabetes mellitus [email or web address] Not available 2022 13:34:18 Mother Heart disease [email or web address] Not available 2022 13:34:28 Mother Hyperlipidem ia [email or web address] Not available 2022 13:34:42 Mother Essential hypertension [email or web address] Not available 05/2023 13:34:50 Sister Rheumatism [email or web address] Not availab le 04/28/2023 13:34:59 Medical History Condition Response Diabetes Y Gynecological HistoryNo gynecological history recorded. Obstetrics History GPAL:G 0 P 0 0 0 0 Past Encounters Encounter ID Performer Location Encounter Start Date Encounter Closed Date Diagnosis/Indication Diagnosis SNOMED-CT Code Diagnosis ICD10 Code Diagnosis Note [id number] MIRIAN ANTONIO [facility] [address] [address] 04/28/2023 12:59:53 04/28/2023 14:05:59 Pain in left lower limb 457658917 M79.605 Pain of left calf 676927 2541 767340 M79.662 Body mass index 40+ - severely obese 144190231 Z68.42 BMI 49 Type 2 bennett betes mellitus 83677131 E11.9 [id number] MIRIAN DURHAM [place] [address], [place] [address] 05/07/2023 09:13:35 05/07/2023 10:25:36 Effusion of joint of left knee 8879885272 10250 M25.462 Effusion of joint 153226 008 M25.40 [id number] MIRIAN DURHAM [place] [address] [place] [address] 05/21/2023 09:39:09 05/21/2023 10:16:35 Osteoarthritis of left knee joint 2052674998 64572 M17.12 [id number] MIRIAN ANTONIO [place] [address] [place] [address] 08/31/2023 15:46:10 08/31/2023 16:18:33 Osteoarthritis of left knee joint 5280282401 21133 M17.12 [id number] MIRIAN DURHAM [place] [address] [place] [address] 11/10/2023 15:12:40 11/10/2023 15:47:51 Effusion of joint of left knee 6815942333 67204 M25.462 Left Osteoarthr itis of left knee joint 7948248039 36565 M17.12 [id number] MIRIAN DURHAM [place] [address] [place] [address] 02/09/2024 15:27:26 02/09/2024 15:39:58 Osteoarthritis of left knee joint 9072506026 54252 M17.12 Follow-up orthopedic assessment 285453558 Z47.89 Additional diagnosis detail: Encounter for orthopedic follow-up care [id number] MIRIAN BRADFORD [place] [address] [place] [address] 08/17/2024 13:56:40 08/17/2024 14:38:14 Osteoarthritis of left knee joint 9183508134 18343 M17.12 Health Concerns Section Related Observation LastModified by Organization Detai ls LastModified Time None Recorded Concern Status LastModified by Organization Details LastModified Time None Recorded Advance Directives Directive None Recorded Payers Insurance Date Sequence Insurance Name Policy Number Policy Nieves Covered Member ID Nieves Member ID Guarantor Name 09/26/2024 1 [facility] [id number] Komal Ewelina Corona [id number] Komal Corona Notes Date Note Type Note [...] studies were negative. MARY SCHWARZ PA-C [address] [facility] [address], [place], [address], [place] [facility] 05/21/2023 12:41:11 08/31/2023 text/html Patient is a 57-year-old female who presents today with stable left knee pain. She was last seen 3 months ago and had undergone a corticosteroid injection. She was having difficulty finding a brace that was effective. She did find 1 at [facility]. She is taking Advil on a as needed basis. She also notices the weather causing some increased discomfort. RADHA BOUCHER PA-C [address] [facility] [address], [place], [address], [place] [facility] 08/31/2023 16:43:18 11/10/2023 text/html Kari 58-year [...] left knee joint. MARY SCHWARZ PA-C [address] [facility],[address] [facility], [place], [address], [place] [facility] 11/11/2023 07:37:02 02/09/2024 text/html Kari 58-year [...] left knee joint. MARY SCHWARZ PA-C [address] [facility],[address], [place], [address], [place] [facility] 02/09/2024 15:44:34 08/17/2024 text/html 58-year-old fema [...] this year and again in June at [facility]. She states that it caused a temporary worsening of her pain but it since settled down. She reports that she uses a brace on her own. MARY MCKEON PA-C [address], [place], [address], [place] [facility], P 08/17/2024 14:34:22 OBGyn Episode No OBEpisode recorded.
--- OUTSIDE RECORDS SUMMARY | 2025-06-02 10:24 | XMS_ITS | Clinical Summary ---
Author Organization [facility] Address [address] [phone] Care Team Providers Care Hoisting Engineer Pile Driving Name Role Phone Heladio Wang MD Primary Care Provider [phone] Allergies No known active allergies Medications Medication [...] age to complete this topic Care Teams Hoisting Engineer Pile Driving Relationship Specialty Start Date End Date Heladio Wang MD [address] [place] [address] PCP - General Internal Medicine 01/19/20
[2025-06-02 13:56] LABS: Hemoglobin A1C 172.6611 umol/L; Total Hemoglobin (HGBA1C) 3489.2769 umol/L
[2025-06-02 14:05] LABS: Alanine Aminotransferase 43 U/L (0-31); Albumin Level 4.3 g/dL (3.5-5.0); Alkaline Phosphatase 91 U/L (39-117); Anion Gap 11 (12-20); Aspartate Amino Transferase 35 U/L (5-31); Blood Urea Nitrogen 19 mg/dL (9-16); Calcium 9.0 mg/dL (8.4-10.2); Carbon Dioxide 27 mmol/L (22-29); Chloride 106 mmol/L (96-108); Cholesterol 142 mg/dL (<200); Estimated Glomerular Filt Rate > 60; HDL Cholesterol 32 mg/dL (>40); Potassium 4.4 mmol/L (3.3-5.1); Sodium 140 mmol/L (135-145); Total Protein 6.6 g/dL (6.5-8.0); Triglycerides 132 mg/dL (<150)
== END 2025-06-02 10:21 | disposition home or self-care (01) ==
LOC: HO.HMGCLDS 10:20
PROVIDERS: PCP Internal Medicine; Visit Provider Internal Medicine
DX: E11.9 Type 2 diabetes mellitus without complications (principal); E78.5 Hyperlipidemia, unspecified; E66.9 Obesity, unspecified
CPT/HCPCS: 36415; 80053; 80061; 83036

== ENCOUNTER 2025-06-08 09:51 | Outpatient (AMB) | payer BC, SELFPAY ==
--- OUTSIDE RECORDS SUMMARY | 2024-03-01 12:00 | XMS_ITS ---
Author Organization [facility] Address [address] [place] [address] Care Team Providers Care Wood Barker Name Role Phone Michaela Corbett MD Primary Care Provider Unavaila Evelio Perez Unavailable [phone] Encounters Encounter Location Date Provider [facility] [address] [place] [phone] 03/01/2024 Evelio Mullen Plan Of Treatment No Information Progress Notes * Lana CALDERONOB: 4 (59 yo F)Acc No.[id number]:03/01/2024 Progress Note Patient: Komal NUÑEZ Provider: Jared Mullen DPM :1965 A ge:58 Y S ex:Female Date:03/01/2024 Address:[address] [place] [phone] Pcp:Michaela Corbett MD Subjective: * Chief Complaints: [...] 03/01/2024 Generated for Luisa llamas/Layla/Gt on: 0 06/08/2025 10:06 AM EDT
--- OUTSIDE RECORDS SUMMARY | 2025-06-08 10:06 | XMS_ITS | Data Portability ---
Author Organization [place] [facility] A[facility] Address [address] [place] [address] Care Team Providers Care Microbiology Instructor Name Role Phone MARTIN DENT Primary Care Provider [phone] Assessment Encounter Date Assessment Date Assessment LastModified [...] basis. All questions answered to her satisfaction. [email or web address] Not available 08/31/2023 16:42:59 11/10/2023 11/10/2023 58-year-old [...] x-rays are consistent with advanced osteoarthritis with [id number]-rx-[id number] articulation. After discussion regarding treatment options she [...] knee, 4 or more view 2023 024 [facility], [address], [place], [address], 14:45:54 Medication Orders Marcaine (PF) 0.5 % (5 mg/mL) injection solution 2023 024 [email or web address] [facility], [address], [place], [address], 14:45:54 lidocaine (PF) 100 mg/5 mL (2 %) injection syringe 2023 024 [facility], [address] [address], [address], 4 14:45:54 triamcinolo ne acetonide 40 mg/mL suspension for injection 2023 024 [facility], [address] [place] [address], [address], 4 14:45:54 Kenalog 40 mg/mL suspension for injection 2022 023 [email or web address] [address] [facility], [address] [place] [address], [address], 3 07:36:22 lidocaine (PF) 10 mg/mL (1 %) injection solution 2022 023 [email or web address] [address] [facility], [address] [place] [address], [address], 3 07:36:22 Kenalog 40 mg/mL suspension for injection 2022 023 [place] [address] [facility], [address] [place] [address], [address], 3 12:39:42 lidocaine (PF) 10 mg/mL (1 %) injection solution 2022 023 [place] [address] [facility], [address] [address], [address], 3 12:39:42 Patient TargetsNo targets recorded. Patient Instructions Encounter Date Encounter Id Patient Instructions Last Modified By Organization Details Last Modified Time 05/21/2023 [id number] You have been provided with a cortisone [...] office or contact us through the portal [employer]. Not available 05/21/2023 12:39:52 11/10/2023 [id number] You have been provided with a cortisone [...] office or contact us through the portal [employer]. Not available 11/11/2023 07:35:38 08/17/2024 [id number] view X-ray sona dy obtained during [...] extre mity No observ ation record ed. [email or web address] [facility] [address] [place], [address], 04/29/2023 15:03:05 Result Notes None recorded. Problems Name Problem SNOMED Code Status Onset Date Resolution Date Notes Provider Name and Address Organization Details Recorded Time Pain of left calf 3304656396125 109 Active 2022 RADHA BOUCHER PA-C [address], [place], [address], [place] [facility] 3 14:06:32 Pain in left lower limb 047849294 Active 2022 RADHA BOUCHER PA-C [address], [place], [address], [place] [facility] 3 14:06:38 Type 2 diabetes mellitus 57802716 Active 2022 RADHA BOUCHER PA-C [address], [place], [address], [place] [facility] 3 14:11:33 Effusion of joint of left knee 4296763818061 05 Active 2022 MARY SCHWARZ PA-C [address] [facility],[address], [facility] [place], [address], [place] [facility] 3 10:04:41 Effusion of joint 060706741 Active 2022 MARY SCHWARZ PA-C [address], [place], [address], [place] [facility] 3 10:04:53 Osteoarthri tis of left knee joint 9611423243161 09 Active 2022 MARY SCHWARZ PA-C [address], [place], [address], [place] [facility] 3 12:39:00 Problem Notes None recorded. Procedures Surgical History Date Name Laterality Status Provider Name and Address Organization Details Recorded Time 4 MJG Knee injection w/US completed MARY MCKEON PA-C [address] [facility] [address] [facility], [place], [address], [place] [facility] 08/17/2024 14:26:58 3 Knee Joint/Bursa Asp & Inj completed MARY SCHWARZ PA-C [address] [facility] [address], [place], [address], [place] [facility] 11/11/2023 07:34:13 3 Knee Joint/Bursa Asp & Inj completed MARY SCHWARZ PA-C [address], [place], [address], [place] [facility] 05/21/2023 07:52:08 3 Knee Joint/Bursa Asp & Inj completed MARY SCHWARZ PA-C [address] [facility] [address], [place], [address], [place] [facility] 05/07/2023 12:36:47 Imaging Results None recorded. [...] [facility] T AT [facility] 08/31 completed Not Available Not Available [...] cm Heaven Salcedo [facility] 05/21/2023 09:55:47 Date Recorded Body height Body mass index (BMI) Body weight Provider Name and Address Organization Details Last Updated DateTime 08/31/2023 154.94 cm 49.1 kg/m2 785196.[address] [place] [facility] 08/31/2023 15:57:26 Social History None recorded. Functional Status Question Answer Note LastModified by Organizat ion Details LastModified Time Do you use any illicit or recreational drugs? No Information not available 04/28/2023 Do you or have you ever used any other forms of tobacco or nicotine? No [email or web address] Information not available 04/28/2023 What is your level of alcohol consumption? None [email or web address] Information not available 04/28/2023 Mental Status None recorded. Family History Relationship Description Onset Age of this Age Resolved Age Notes LastModified by Organization Details LastModified Time Father Arthritis [email or web address] Not availabl e 04/28/2023 13:34:10 Father Heart disease [email or web address] Not available 2022 13:34:28 Father Hyperlipidem ia [email or web address] Not available 2022 13:34:42 Mother Diabetes mellitus [email or web address] Not available 2022 13:34:18 Mother Heart disease [email or web address] Not available 2022 13:34:28 Mother Hyperlipidem ia Not available 2022 13:34:42 Mother Essential hypertension [email or web address] Not available 05/2023 13:34:50 Sister Rheumatism [email or web address] Not availab le 04/28/2023 13:34:59 Medical History Condition Response Diabetes Y Gynecological HistoryNo gynecological history recorded. Obstetrics History GPAL:G 0 P 0 0 0 0 Past Encounters Encounter ID Performer Location Encounter Start Date Encounter Closed Date Diagnosis/Indication Diagnosis SNOMED-CT Code Diagnosis ICD10 Code Diagnosis Note [id number] MIRIAN ANTONIO [facility] [address] [address] 04/28/2023 12:59:53 04/28/2023 14:05:59 Pain in left lower limb 792519120 M79.605 Pain of left calf 884705 7638 204725 M79.662 Body mass index 40+ - severely obese 357588553 Z68.42 BMI 49 Type 2 bennett betes mellitus 21595692 E11.9 [id number] MIRIAN DURHAM [place] [address], [place] [address] 05/07/2023 09:13:35 05/07/2023 10:25:36 Effusion of joint of left knee 2234433828 52069 M25.462 Effusion of joint 004551 008 M25.40 [id number] MIRIAN DURHAM [place] [address] [place] [address] 05/21/2023 09:39:09 05/21/2023 10:16:35 Osteoarthritis of left knee joint 3354785420 86709 M17.12 [id number] MIRIAN ANTONIO [place] [address] [place] [address] 08/31/2023 15:46:10 08/31/2023 16:18:33 Osteoarthritis of left knee joint 3634118472 63502 M17.12 [id number] MIRIAN DURHAM [place] [address] [place] [address] 11/10/2023 15:12:40 11/10/2023 15:47:51 Effusion of joint of left knee 0178248206 80288 M25.462 Left Osteoarthr itis of left knee joint 7657164311 48632 M17.12 [id number] MIRIAN DURHAM [place] [address] [place] [address] 02/09/2024 15:27:26 02/09/2024 15:39:58 Osteoarthritis of left knee joint 6681500118 26412 M17.12 Follow-up orthopedic assessment 468140086 Z47.89 Additional diagnosis detail: Encounter for orthopedic follow-up care [id number] MIRIAN BRADFORD [place] [address] [place] [address] 08/17/2024 13:56:40 08/17/2024 14:38:14 Osteoarthritis of left knee joint 9906411255 42120 M17.12 Health Concerns Section Related Observation LastModified by Organization Detai ls LastModified Time None Recorded Concern Status LastModified by Organization Details LastModified Time None Recorded Advance Directives Directive None Recorded Payers Insurance Date Sequence Insurance Name Policy Number Policy Nieves Covered Member ID Nieves Member ID Guarantor Name 09/26/2024 1 [facility] [id number] Komal Ewelina Corona [id number] Komal Corona Notes Date Note Type Note [...] studies were negative. MARY SCHWARZ PA-C [address] [facility] [address], [place], [address], [place] [facility] 05/21/2023 12:41:11 08/31/2023 text/html Patient is a 57-year-old female who presents today with stable left knee pain. She was last seen 3 months ago and had undergone a corticosteroid injection. She was having difficulty finding a brace that was effective. She did find 1 at [facility]. She is taking Advil on a as needed basis. She also notices the weather causing some increased discomfort. RADHA BOUCHER PA-C [address] [facility] [address], [place], [address], [place] [facility] 08/31/2023 16:43:18 11/10/2023 text/html Kari 58-year [...] left knee joint. MARY SCHWARZ PA-C [address] [facility],[address] [facility], [place], [address], [place] [facility] 11/11/2023 07:37:02 02/09/2024 text/html Kari 58-year [...] left knee joint. MARY SCHWARZ PA-C [address] [facility],[address], [place], [address], [place] [facility] 02/09/2024 15:44:34 08/17/2024 text/html 58-year-old fema [...] this year and [facility] in [facility]. She states that it caused a temporary worsening of her pain but it since settled down. She reports that she uses a brace on her own. MARY MCKEON PA-C [address], [place], [address], [place] [facility] 08/17/2024 14:34:22 OBGyn Episode No OBEpisode recorded.
--- OUTSIDE RECORDS SUMMARY | 2025-06-08 10:06 | XMS_ITS | Clinical Summary ---
Author Organization [facility] Address [address] [id number] Care Team Providers Care Dent Remover Name Role Phone Heladio Wang MD Primary Care Provider [phone] Allergies No known active allergies Medications Medication [...] age to complete this topic Care Teams Dent Remover Relationship Specialty Start Date End Date Heladio Wang MD [address] [place] [address] PCP - General Internal Medicine 01/19/20
--- NOTE | 2025-06-08 10:12 | MHC.PC.OV ---
Vital Signs 06/08/25 10:13 Height 5 ft 1.5 in Weight 258 lb BMI 48.0 BP 120/78 Blood Pressure Location Rt brachial Position Sitting Respiration 18 Pulse 86 Pulse Source Pulse Oximeter Temp 98.3 F Temp Source Oral Pulse Oximetry (%) 96 Oxygen Delivery Method Room Air Intake Visit Reasons: 3m follow up Intake Note: Pt is here today for 3 months follow up visit. Allergies No Known Allergies Allergy (Verified 06/08/25 10:14) Medication List - Last Reconciled 06/08/25 by Michaela Corbett MD aspirin 81 mg PO DAILY atorvastatin 20 mg PO DAILY blood sugar diagnostic (FreeStyle Lite Strips) use twice daily to test blood sugar blood-glucose meter (FreeStyle Lite Meter kit) As directed empagliflozin (Jardiance) 25 mg PO QAM glipizide ER 2.5 mg PO DAILY lancets (FreeStyle Lancets) use 1 strip to test blood sugar twice a day metformin ER 1,000 mg (2 x 500 mg) PO BID Tobacco use date assessed: 06/08/25 Dental Screening Dental Screen Date: 02/21/24 HPI 3m follow up HPI Details Patient presents for the follow-up of type 2 diabetes and hyperlipidemia. She has been working with personnel research psychologist following ADA diet increasing physical activity. Patient reports fasting blood glucose between 110-130. 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 Housing: House Alcohol intake: current Alcohol intake frequency: holidays/special occasions only Patient Tobacco Use Status: Never used Tobacco e-Cigarette/Vaping Use: Never Used service: No Current occupational status: employed Cognitive needs: No Hearing needs: No Vision needs: Yes Questionnaire Thrive Questionnaire Date Thrive assessed: 02/26/25 I am a: Patient What is your living situation today?: I have a steady place to live Within the past 12 months, did the food you bought not last and you didn't have the money to get more?: Never true Within the past 12 months, did you worry whether your food would run out before you got money to buy more?: Never true Do you have trouble paying for medicines?: No Do you have trouble getting transportation to medical appointments?: No Do you have trouble paying your heating and electricity bill?: No Do you have trouble taking care of your child, family member or friend?: No Do you have trouble with day-to-day activities such as bathing, preparing meals, shopping, managing finances, etc.?: No Are you currently unemployed and looking for a job?: No Are you interested in more education?: No Please select the resources that you would like help with: None Currently or been in a relationship where the following occur: No concerns reported THRIVE Score: 0 VICTORIANO-7 AMB Questionnaire VICTORIANO-7 Date VICTORIANO - 7 assessed: 03/05/25 Source: Developed by Drs. Pete Chung, Iris Oh, Leon Lopez and colleagues, with an educational lamont from [employer]. Review of Systems Const All systems reviewed & are unremarkable except as noted in HPI and below Eyes Reports no additional complaints ENT Reports no additional complaints Card Reports no additional complaints Resp Reports no additional complaints GI Reports no additional complaints Reports no additional complaints Physical exam (Primary Care) Vital Signs: Last Vital Signs Temp 98.3 F 06/08/25 10:13 Pulse 86 06/08/25 10:13 Resp 18 06/08/25 10:13 BP 120/78 06/08/25 10:13 Pulse Ox 96 06/08/25 10:13 Oxygen Delivery Method Room Air 06/08/25 10:13 BMI result Body Mass Index 48.0 Tobacco/Smoking Status: Tobacco use Status Tobacco use date assessed 06/08/25 06/08/25 10:18 Patient Tobacco Use Status Never used Tobacco 06/08/25 10:15 e-Cigarette/Vaping Use Never Used 06/08/25 10:15 Thrive Assessment: Date of Thrive Assessment Date Thrive assessed 02/26/25 06/08/25 10:15 Currently or been in a relationship where the following occur: No concerns reported Const General: no acute distress HENMT Head: Yes normal to inspection Face and sinus: Yes normal facial exam Eyes General: appearance normal, both eyes and all related structures Neck Neck: Yes supple Resp Effort & Inspection: normal respiratory effort Auscultation: clear to auscultation bilaterally Cardio Rhythm: regular rhythm Heart sounds: S1 normal heart sound present and S2 normal heart sound present GI Inspection: Yes normal to inspection Palpation (GI): Soft to palpation Percussion: Yes normal to percussion Coding Level of Care Code Est Pt Level 4 (64541) Diagnoses DM type 2 (diabetes mellitus, type 2) E11.9 Hyperlipidemia E78.5 Obese E66.9 Assessment & Plan Assessment & Plan (1) DM type 2 (diabetes mellitus, type 2): Code(s): E11.9 - Type 2 diabetes mellitus without complications Category: Medical Plan: A1c is down to 6.7. ADA diet regular physical activity weight loss discussed with the patient. she will continue current medications and return in 5 months with a fasting labs before (2) Hyperlipidemia: Code(s): E78.5 - Hyperlipidemia, unspecified Category: Medical Plan: Continue statin (3) Obese: Comment: BMI 48, (2024) pt declined GLP 1 agonist Code(s): E66.9 - Obesity, unspecified Category: Medical Plan: DECREASING CALORIC INTAKE INCREASING PHYSICAL ACTIVITY DISCUSSED WITH THE PATIENT Orders: Orders Comprehensive Horton. Panel Fast 5 Months E11.9 - Type 2 diabetes mellitus without complications, E66.9 - Obesity, unspecified, E78.5 - Hyperlipidemia, unspecified TSH reflex Free T4 5 Months E11.9 - Type 2 diabetes mellitus without complications, E66.9 - Obesity, unspecified, E78.5 - Hyperlipidemia, unspecified Lipid Panel 5 Months E11.9 - Type 2 diabetes mellitus without complications, E66.9 - Obesity, unspecified, E78.5 - Hyperlipidemia, unspecified Hemoglobin A1c 5 Months E11.9 - Type 2 diabetes mellitus without complications, E66.9 - Obesity, unspecified, E78.5 - Hyperlipidemia, unspecified Complete Blood Count Auto Diff 5 Months E11.9 - Type 2 diabetes mellitus without complications, E66.9 - Obesity, unspecified, E78.5 - Hyperlipidemia, unspecified Medications: Refilled empagliflozin (Jardiance) 25 mg PO QAM 90 tabs 3RF metformin ER 1,000 mg (2 x 500 mg) PO BID 360 tabs 3RF atorvastatin 20 mg PO DAILY 90 tabs 3RF E78.5 - Hyperlipidemia, unspecified glipizide ER 2.5 mg PO DAILY 90 tabs 3RF
[2025-06-08 10:13] VITALS: BP 120/78; PULSE 86; RESP 18; TEMP 36.8; O2SAT 96; BMI 48.0
== END 2025-06-08 10:56 | disposition home or self-care (01) ==
LOC: HO.HMCC 09:52
PROVIDERS: PCP Internal Medicine; Visit Provider Internal Medicine
DX: E11.9 Type 2 diabetes mellitus without complications (principal); E78.5 Hyperlipidemia, unspecified; E66.9 Obesity, unspecified; Z68.42 Body mass index [BMI] 45.0-49.9, adult

== ENCOUNTER 2025-08-27 08:17 | Outpatient (AMB) | payer SELFPAY ==
--- OUTSIDE RECORDS SUMMARY | 2024-03-01 12:00 | XMS_ITS ---
Author Organization [facility] Address [address] [place] [address] Care Team Providers Care Csr Name Role Phone Michaela Corbett MD Primary Care Provider Unavaila Evelio Perez Unavailable [phone] Encounters Encounter Location Date [facility] [address] [place] [phone] 03/01/2024 Evelio Mullen Plan Of Treatment No Information Progress Notes * Lana CALDERONOB: 4 (59 yo F)Acc No.[id number]:03/01/2024 Progress Note Patient: Komal NUÑEZ Provider: Jared Mullen DPM :1965 A ge:58 Y S ex:Female Date:03/01/2024 Address:[address] [place] [phone] Pcp:Michaela Corbett MD Subjective: * Chief Complaints: [...] 0 03/01/2024 Generated for Luisa llamas/Layla/Gt on: 1 08:35 AM EDT
--- OUTSIDE RECORDS SUMMARY | 2025-08-27 08:36 | XMS_ITS | Patient Health Record ---
Author Organization [facility] Address [address] [place] [address] Care Team Providers Care Trade Manager Name Role Phone Michaela Corbett MD Primary Care Provider Unavaila Evelio Perez Unavailable [phone] Allergies No Known Allergies Reason For Referral No Information Medications Medication SIG (Take, Route, Frequency, Duration) Notes Start Date End Date Status Atorvastatin Calcium 20 MG 1 tablet Oral ly Once a day; Duration: 30 day(s) Active Jardiance 25 MG 1 tablet Orally Once a day; Duration: 30 day(s) Active Extra Depth Orthopedic Shoes, (1) Pair With (3) Pair Custom Heat Molded Multidensity Innersoles Dx: NIDDM/PVD(E11.51), Hammertoe Foot Deformity(M20.41,M20.42), Preulcerative Skin Lesion(s)(L85.1) Wear Daily; Duration: 365 days 12/15/2023 Active metFORMIN HCl 500 MG 1 tablet with a nettie l Orally Once a day; Duration: 30 day(s) Active Social History Tobacco Use: [...] Problem Acquired hammer toe of right foot (62751169606370 05) Other hammer toe(s) (acquired), right foot (M20.41) Active confirmed Problem Type 2 diabetes mellitus with peripheral angiopathy (826114770) Type 2 diabetes mellitus with diabetic peripheral angiopathy without gangrene (E11.51) Active confirmed Problem Acquired hammer toe of left foot (68729832093765 03) Other hammer toe(s) (acquired), left foot (M20.42) Active confirmed Plan Of Treatment Pending Test Test Name Order Date [id number] NAIL, 6 OR MORE 12/15/2023 15767-Ytiaimlq Plate 01/12/2024 24764-Fusztfdt Plate Each Additional 91698-RSCK SKIN LESIONS, 2 TO 4 12/15/19 Insurance Providers Payer Name Payer Address Payer Phone Subscriber Number Group Number Insured Name Patient Relationship to Insured Coverage Start Date Coverage End Date [facility] [address] [place] [address] [id number] Komal Corona Self - patient is the insured Medical (General) History Medical History History ICD Code Diabetic CAD Surgical History Surgery Date(Month/Year)
--- OUTSIDE RECORDS SUMMARY | 2025-08-27 08:36 | XMS_ITS | Clinical Summary ---
Author Organization [facility] Address [address] [id number] Care Team Providers Care Grooming Salon Manager Name Role Phone Heladio Wang MD Primary Care Provider [phone] Allergies No known active allergies Medications Medication [...] age to complete this topic Care Teams Grooming Salon Manager Relationship Specialty Start Date End Date Heladio Wang MD [address] [place] [address] PCP - General Internal Medicine 01/19/20
--- NOTE | 2025-08-27 08:37 | A.OFFVIS_ITS ---
VS Expanded 08/27/25 08:38 Height 5 ft 1.5 in Weight 262 lb 5.601 oz BMI 48.8 Intake Visit Reasons: T2DM Allergies No Known Allergies Allergy (Verified 06/08/25 10:14) Nutrition Presentation Details: Pt presents for MNT f/u for T2DM Pt admits to dietary indiscretions related various reasons (stress/boredom,lack of meal planning/eating out) T BS Monitoring Most Recent Diabetes Results: Microalb/Creat Ratio, (<30) 9.6 ug/mg cr 02/24/25 Cholesterol, (<200) 142 mg/dL 06/02/25 HDL Cholesterol, (>40) 32 mg/dL L 06/02/25 Triglycerides, (<150) 132 mg/dL 06/02/25 Creatinine, (0.5-1.4) 0.61 mg/dL 06/02/25 BUN, (9-16) 19 mg/dL H 06/02/25 Sodium, (135-145) 140 mmol/L 06/02/25 Potassium, (3.3-5.1) 4.4 mmol/L 06/02/25 Chloride, (96-108) 106 mmol/L 06/02/25 Carbon Dioxide, (22-29) 27 mmol/L 06/02/25 Calcium, (8.4-10.2) 9.0 mg/dL 06/02/25 AST, (5-31) 35 U/L H 06/02/25 ALT, (0-31) 43 U/L H 06/02/25 Total Protein, (6.5-8.0) 6.6 g/dL 06/02/25 Albumin, (3.5-5.0) 4.3 g/dL 06/02/25 [facility] Medical History Overweight Sleep apnea Osteopenia Annual physical exam (~06/11/23) Mammogram normal Normal Pap smear Hyperlipidemia DM type 2 (diabetes mellitus, type 2) Surgical History Hx of colonoscopy Status post surgical removal of malignant neoplasm of skin Surgical history unknown Family History Mother Diabetes Kidney failure HTN (hypertension) CHF (congestive heart failure) Father Heart problem Social History Household Members Other:: 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, 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, 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 Alcohol intake: current Alcohol intake frequency: holidays/special occasions only Patient Tobacco Use Status: Never used Tobacco e-Cigarette/Vaping Use: Never Used service: No Current occupational status: employed Cognitive needs: No Hearing needs: No Vision needs: Yes Assessment & Plan Assessment & Plan (1) DM type 2 (diabetes mellitus, type 2): Code(s): E11.9 - Type 2 diabetes mellitus without complications Category: Medical Plan: Wt: , 119 kg (09/15) Est kcal needs as per MSJ: 1700 (40% carb, 30% protein/fat) Est fluid needs as per 25-30 ml/d: 3500 Est prot per day as per 1 g/kg bw: 117 Recommend fiber intake : 8-10 g per day and gradually increase to 25-28 g per day for women and 35-38 g for men or as tolerated Recommend sodium intake per day : less than 2000 mg Educated patient on: ( R = reviewed V = verbalizes understanding N/R = needs review N/A = not applicable * Food sources of carbohydrate, adequate serving sizes and its role in various health conditions: R * Differences between complex carbohydrates a simple carbohydrates, role of fiber in diet: R * Lean protein sources of foods: R * Differences between types of fats and role in diet (mono on saturated fat fatty acids, saturated fatty acids, trans fats): R basic * Food sources of sodium in salt and healthy modifications for heart health in kidney health: NR * Vitamins and minerals: R * Healthy plate method concept: R * Physical activity: Benefits a precaution: R * Dietary prevention of Hyperglycemia: R Patient Instructions: Have 6 oz of water before and after meals , ok to have low sugar beverages, fruit/herb flavored Monitor blood sugar 2 hours after a meal for self assessment,( blood glucose level goal less than 180 unless otherwise specified by your doctor Cut down n added sugars ( pastries, cookies, ice cream and similar) Coding Level of Care Code Nutr Indiv Subseq (01027) Diagnoses DM type 2 (diabetes mellitus, type 2) E11.9 Time Spent (min) 30
[2025-08-27 08:38] VITALS: BMI 48.8
== END 2025-08-27 09:13 | disposition home or self-care (01) ==
LOC: HO.ENCR 08:18
PROVIDERS: PCP Internal Medicine; Visit Provider Dietitian, Registered
DX: E11.9 Type 2 diabetes mellitus without complications (principal)

== ENCOUNTER → 2025-08-27 08:17 | Outpatient (BNVA) | payer SELFPAY | PROVIDERS: PCP Internal Medicine; Visit Provider Dietitian, Registered | DX: E11.9 Type 2 diabetes mellitus without complications (principal) | CPT/HCPCS: 97803 ==

== ENCOUNTER 2025-10-20 12:01 | Outpatient (AMB) | payer BC, SELFPAY ==
--- OUTSIDE RECORDS SUMMARY | 2025-10-20 12:03 | XMS_ITS | Patient Health Record ---
Author Organization [facility] Address [address] [place] [address] Care Team Providers Care Crtts Name Role Phone Michaela Corbett MD Primary Care Provider Unavaila Evelio Perez Unavailable [phone] Allergies No Known Allergies Reason For Referral [...] Problem Status W/U Status Risk Notes Problem Information temporarily unavailable Other hammer toe(s) (acquired), right foot (M20.41) Active confirmed Problem Information temporarily unavailable Type 2 diabetes mellitus with diabetic peripheral angiopathy without gangrene (E11.51) Active confirmed Problem Information temporarily unavailable Other hammer toe(s) (acquired), left foot (M20.42) Active confirmed Plan Of Treatment Pending Test Test Name Order Date 45880-WMKZEVT NAIL, 6 OR MORE 12/15/2023 86715-Bfydcgzp Plate 01/12/2024 94351-Lgikpaes Plate Each Additional 37310-JIAM SKIN LESIONS, 2 TO 4 12/15/19 Insurance Providers Payer Name Payer Address Payer Phone Subscriber Number Group Number Insured Name Patient Relationship to Insured Coverage Start Date Coverage End Date [facility] [address] [facility] [place] [phone] [id number] Komal Corona Self - patient is the insured Medical (General) History Medical History History ICD Code Diabetic CAD Surgical History Surgery Date(Month/Year)
--- OUTSIDE RECORDS SUMMARY | 2025-10-20 12:03 | XMS_ITS | Clinical Summary ---
Author Organization [facility] Address [address] [id number] Care Team Providers Care Forest Fire Prevention Specialist Name Role Phone Heladio Wang MD Primary Care Provider [phone] Allergies No known active allergies Medications Medication [...] age to complete this topic Care Teams Forest Fire Prevention Specialist Relationship Specialty Start Date End Date Heladio Wang MD [address] [place] [address] PCP - General Internal Medicine 01/19/20
--- OUTSIDE RECORDS SUMMARY | 2025-10-20 12:03 | XMS_ITS | Data Portability ---
Author Organization [place] [facility] [place] Address [address] [place] [address] Care Team Providers Care Public Utilities Sales Representative Name Role Phone MARRY DENTANNA Primary Care Provider Assessment Encounter Date Assessment Date Assessment LastModified by Organization Details LastModified Time 11/10/2023 11/10/2023 58-year-old female degenerative joint disease [...] x-rays are consistent with advanced osteoarthritis with rnen-zw-agqg articulation. After discussion regarding treatment options she [...] and/or textual errors. Not available 08/17/2024 14:28:28 07/13/2025 07/13/2025 HPI : Patient is here today with complaints of left knee pain. T he patient is experiencing left knee pain, which is moderate in intensity, and has recently worsened. The pain limits some activities of daily living. Walking tolerance is reduced. Pain and restriction of function are moderate at this time. She had a cortisone injection in July of last year. This brought many months of relief. The pain has not returned. Review of systems is negative for other rapidly progressive neurological disorder, chest pain, shortness of breath, fevers, chills, or any signs of active or persistent local or systemic infection. Physical Exam : Patient is well nourished, well-developed, in no acute distress, with appropriate mood and affect. The patient is oriented to time, place, and person. Examination of the contralateral knee shows normal range of motion, strength, no tenderness, and intact skin. The affected limb is well-perfused, without skin lesions, shows a grossly normal motor and sensory examination. Left knee motion is reduced and does cause significant pain. The left knee moves from 5-125 degrees. The knees are stable within those yicjwn-ba-fqblic. The alignment of the left knee is varus . Muscle strength is normal. Pedal pulses are palpable. Hip examination, including flexion and internal rotation, was negative in that groin pain was not produced. Assessment/Plan : The patient has left knee arthritis. An extensive discussion was conducted on the natural history of the disease and the variety of surgical and non-surgical options available to the patient including, but not limited to non-steroidal anti-inflammatory medications, steroid injections, viscosupplementat ion, physical therapy, maintenance of ideal body weight, and reduction of activity. Plan for left knee corticosteroid injection today. She will follow-up as needed, per patient preference. Not available 07/13/2025 14:45:08 09/07/2025 09/07/2025 HPI : Patient is here for right knee pain. I have seen her for her left knee. At last visit I performed a left knee cortisone injection. This brought significant relief. She is now having increased symptoms in her right knee. It has worsened over the last few weeks. She has been taking ibuprofen or Tylenol. The left knee has been feeling good. Physical Exam : Patient is well nourished, well-developed, in no acute distress, with appropriate mood and affect. The patient is oriented to time, place, and person. Examination of the contralateral knee shows normal range of motion, strength, no tenderness, and intact skin. The affected right limb is well-perfused, without skin lesions, shows a grossly normal motor and sensory examination. Left knee motion is reduced and does cause significant pain. The left knee moves from 5-125 degrees. The knees are stable within those [id number]-[id number]. The alignment of the left knee is varus . Muscle strength is normal. Pedal pulses are palpable. Hip examination, including flexion and internal rotation, was negative in that groin pain was not produced. Assessment/Plan : Patient has right knee arthritis. An extensive discussion was conducted on the natural history of the disease and the variety of surgical and non-surgical options available to the patient including, but not limited to non-steroidal anti-inflammatory medications, steroid injections, viscosupplementat ion, physical therapy, maintenance of ideal body weight, and reduction of activity. Plan for right knee corticosteroid injection today. She will follow-up in 3 months with reevaluation at that time. Not available 09/07/2025 09:17:31 Plan of Treatment Reminders Order Date Submit Date Provider Last Modified By Organization Details Last Modified Time Details Appointments FOLLOW UP 2025 08:30A M MARY MCKEON PA-C Not available Not available Not available Lab None recorded. Referral None recorded. Procedures None recorded. Surgeries None recorded. Imaging XR, knee, 1 or 2 view 2024 025 [email or web address] [facility], [address], [place], [address], 09/07/2025 09:16:05 XR, knee, 4 or more view 2024 025 [facility], [address], [place], [address], 07/13/2025 14:46:52 XR, knee, 4 or more view 2023 024 [email or web address] [facility], [address], [place], [address], 08/17/2024 14:45:54 Medication Orders Marcaine (PF) 0.5 % (5 mg/mL) injection solution 2024 025 [facility], [address] [place] [address], [id number], 09/07/2025 10:30:02 lidocaine (PF) 100 mg/5 mL (2 %) injection syringe 2024 025 [facility], [address] [place] [address], [id number], 09/07/2025 10:30:02 triamcino lone acetonide 40 mg/mL suspensio n for injection 2024 025 [facility], [address] [place] [address], [address], 09/07/2025 10:30:02 Marcaine (PF) 0.5 % (5 mg/mL) injection solution 2024 025 [facility], [address] [place] [address], [id number], 07/13/2025 14:46:52 lidocaine (PF) 100 mg/5 mL (2 %) injection syringe 2024 025 [facility], [address] [place] [address], [address], 07/13/2025 14:46:52 triamcino lone acetonide 40 mg/mL suspensio n for injection 2024 025 [facility], [address] [place] [address], [address], 07/13/2025 14:46:52 Marcaine (PF) 0.5 % (5 mg/mL) injection solution 2023 024 [facility], [address] [place] [address], [id number], 08/17/2024 14:45:54 lidocaine (PF) 100 mg/5 mL (2 %) injection syringe 2023 024 [facility], [address] [place] [address], [address], 08/17/2024 14:45:54 triamcino lone acetonide 40 mg/mL suspensio n for injection 2023 024 [facility], [address] [place] [address], [address], 08/17/2024 14:45:54 Kenalog 40 mg/mL suspensio n for injection 2022 023 [facility], [address] [place] [address], [address], 11/11/2023 07:36:22 lidocaine (PF) 10 mg/mL (1 %) injection solution 2022 023 [facility], [address] [place], [address], 11/11/2023 07:36:22 Patient TargetsNo targets recorded. Patient Instructions Encounter Date Encounter Id Patient Instructions Last Modified By Organization Details Last Modified Time 11/10/2023 [id number] You have been provided with a cortisone [...] hours following the injection. This is called allen sim . To help minimize the chances of this, please see the post-injection instructions above. There is a less than 1% chance of an infection. If you notice any signs of infection (redness, warmth, drainage, fever greater than 100 degrees) please call our office or contact us through the portal [facility]VER[facility]. Not available 11/11/2023 07:35:38 08/17/2024 [id number] view X-ray sona dy obtained during today's office encounter show evidence of severe left knee osteoarthritis. There is joint space narrowing, subchondral sclerosis and marginal osteophytosis. Kellgren-Fly grade 3. No evidence of acute fracture or osteolytic findings. Not available 08/17/2024 14:27:41 07/13/2025 [id number] AP, lateral, Hodges, and patellar view radiographs of the left knee taken today demonstrate left knee degenerative joint disease with joint space narrowing, osteophyte formation, and subchondral sclerosis. There is bfou-ai-xvkk articulation in the medial compartment. Not available 07/13/2025 14:46:25 09/07/2025 [id number] Lateral x-ray of the right knee taken today along with prior AP and patellar demonstrate degenerative joint disease with joint space narrowing, osteophyte formation, and subchondral sclerosis. There is sphq-lz-pvmu articulation in the medial compartment. Not available 09/07/2025 09:17:25 Reason for Referral None Reported. Problems Name Problem SNOMED Code Status Onset Date Resolution Date Notes Provider Name and Address Organization Details Recorded Time Pain of left calf 7996168152952 109 Active 2022 RADHA BOUCHER PA-C [address], [place], [address], [place] [facility] 3 14:06:32 Pain in left lower limb 388666659 Active 2022 RADHA BOUCHER PA-C [address], [place], [address], [place] [facility], P 3 14:06:38 Type 2 diabetes mellitus 93393423 Active 2022 RADHA BOUCHER PA-C [address], [place], [address], [place] [facility], [facility] 3 14:11:33 Effusion of joint of left knee 4089042395533 05 Active 2022 MARY SCHWARZ PA-C [address], [place], [place], [address], [place] [facility], P 3 10:04:41 Effusion of joint 250610431 Active 2022 MARY SCHWARZ PA-C [address], [place], [place], [address], [place] [facility], P 3 10:04:53 Osteoarthri tis of left knee joint 8393903533288 09 Active 2022 MARY SCHWARZ PA-C [address], [place], [address], [place] [facility], P 3 12:39:00 Problem Notes None recorded. Procedures Surgical History Date Name Laterality Status Provider Name and Address Organization Details Recorded Time 5 MJG Knee Injection w/o US completed Maximilian Ramos MD [address], [place], [address], [place] [facility] 09/07/2025 09:15:30 5 MJG Knee Injection w/o US completed Maximilian Ramos MD [address], [place], [address], [place] [facility] 07/13/2025 14:44:20 4 MJG Knee injection w/US completed MARY MCKEON PA-C [address] [facility],[address], [place], [address], [place] [facility] 08/17/2024 14:26:58 3 Knee Joint/Bursa Asp & Inj completed MARY SCHWARZ PA-C [address] [facility] [address], [place], [address], [place] [facility] 11/11/2023 07:34:13 3 Knee Joint/Bursa Asp & Inj completed MARY SCHWARZ PA-C [address] [facility] [address], [place], [address], [place] [facility] 05/21/2023 07:52:08 3 Knee Joint/Bursa Asp & Inj completed MARY SCHWARZ PA-C [address] [facility] [address], [place], [address], [place] [facility] 05/07/2023 12:36:47 Imaging Results None recorded. Procedure Notes None recorded. Medical Equipment None Reported. Allergies No known drug allergies Medications Name Sig Start Date Stop Date Status Note LastModified by Organization Details LastModified Time amoxicillin 500 mg capsule TAKE ONE CAPSULE BY MOUTH THREE TIMES A DAY 09/07 completed Not Available Not Available Not Available metformin 500 mg tablet 2019 active Not Available Not Available Not Avai lable atorvastati n 20 mg tablet TAKE ONE TABLET BY MOUTH EVERY DAY active Not Available Not Available No t Available azithromyci n 250 mg tablet TAKE TWO TABLETS BY MOUTH ONE DOSE ON THE FIRST DAY, THEN TAKE ONE TABLET DAILY THERERACQUELE R. 05/11 completed Not Available Not Available Not Available FreeStyle Lancets 28 gauge USE 1 STRIP TO TEST BLOOD SUGAR TWICE A DAY active Not Available Not Available No t Available benzonatate 100 mg capsule TAKE ONE CAPSULE BY MOUTH TWO TO THREE TIMES A DAY NEEDED FOR COUGH 05/11 completed Not Available Not Available Not Available glipizide ER 2.5 mg tablet, extended release 24 hr TAKE ONE TABLET BY MOUTH EVERY DAY active Not Available Not Available No t Available triamcinolo ne acetonide 40 mg/mL suspension for injection Take 40 mg by injection route. 2024 active Not Available Not Available Not Avai lable prednisone 50 mg tablet TAKE ONE TABLET BY MOUTH EVERY DAY 05/07 completed Not Available Not Available Not Available bisacodyl 5 mg tablet,rob yed release TAKE 2 TABLETS BY MOUTH AT NOON THE DAY BEFORE YOUR COLONOSCO PY 05/11 completed Not Available Not Available Not Available mupirocin 2 % topical ointment APPLY A THIN LAYER TO THE AFFECTED AREA ON LEFT UPPER ARM TWO TIMES A DAY FOR 14 DAYS active Not Available Not Available No t Available ibuprofen 600 mg tablet TAKE ONE TABLET BY MOUTH EVERY 4 TO 6 HOURS NEEDED active Not Available Not Available No t Available polyethylen e glycol 3350 17 gram/dose oral powder TAKE 238 GRAMS ORALLY ONCE DIRECTED BY THE GASTROENT EROLOGY DEPARTMEN T AT THE [facility] 08/31 completed Not Available Not Available [...] solution Take 4 mL by injection route. 2024 active Not Available Not Available Not Avai lable lidocaine (PF) 10 mg/mL (1 %) injection solution Take 2 mL by injection route. 2022 active Not Available Not Available Not Avai lable FreeStyle Lite Strips USE 1 STRIP 2 TIMES A DAY TO TEST BLOOD SUAGR active Not Available Not Available No t Available lidocaine (PF) 100 mg/5 mL (2 %) injection syringe Take 4 mL by injection route. 2024 active Not Available Not Available Not Avai lable Jardiance 25 mg tablet TAKE ONE TABLET BY MOUTH EVERY MORNING active Not Available Not Available No t Available Ozempic 0.25 mg or 0.5 mg (2 mg/3 mL) subcutaneou s pen injector USE TO INJECT 0.25 MG SUBCUTANE OUSLY EVERY WEEK 09/07 completed Not Available Not Available Not Available Vitals Date Recorded Body height Body mass index (BMI) Body weight Provider Name and Address Organization Details Last Updated DateTime 09/07/2025 154.94 cm 49.1 kg/m2 085497.[address] [place] [facility] 09/07/2025 08:56:36 Social History None recorded. Functional Status Question Answer Note LastModified by Organizat ion Details LastModified Time Do you use any illicit or recreational drugs? No [email or web address] Information not available 04/28/2023 Do you or have you ever used any other forms of tobacco or nicotine? No [email or web address] Information not available 04/28/2023 What is your level of alcohol consumption? None [email or web address] Information not available 04/28/2023 Mental Status None recorded. Family History Relationship Description Onset Age of this Age Resolved Age Notes LastModified by Organization Details LastModified Time Father Arthritis Not availabl e 04/28/2023 13:34:10 Father Heart disease Not available 2022 13:34:28 Father Hyperlipidem ia [email or web address] Not available 2022 13:34:42 Mother Diabetes mellitus [email or web address] Not available 2022 13:34:18 Mother Heart disease [email or web address] Not available 2022 13:34:28 Mother Hyperlipidem ia Not available 2022 13:34:42 Mother Essential hypertension Not available 05/2023 13:34:50 Sister Rheumatism Not availab le 04/28/2023 13:34:59 Medical History Condition Response Diabetes Y Gynecological HistoryNo gynecological history recorded. Obstetrics History GPAL:G 0 P 0 0 0 0 Past Encounters Encounter ID Performer Location Encounter Start Date Encounter Closed Date Diagnosis/Indication Diagnosis SNOMED-CT Code Diagnosis ICD10 Code Diagnosis IMO Codes Diagnosis Note [id number] [facility] [address] [facility] [facility] [address] [place] [address] 04/28/2023 12:59:53 04/28/2023 14:05:59 Pain in left lower limb 945979107 M79.605 Pain of left calf 520270 1730 057057 M79.662 Body mass index 40+ - severely obese 726679671 Z68.42 BMI 49 Type 2 bennett betes mellitus 63239063 E11.9 [id number] [facility] [address] [place] [address] 05/07/2023 09:13:35 05/07/2023 10:25:36 Effusion of joint of left knee 7823320004 75540 M25.462 Effusion of joint 407434 008 M25.40 [id number] MIRIAN DURHAM [employer] [facility] to [facility] [address] [address] 05/21/2023 09:39:09 05/21/2023 10:16:35 Osteoarthritis of left knee joint 1653434532 02030 M17.12 [id number] MIRIAN ANTONIOmelonie [address] [address] 08/31/2023 15:46:10 08/31/2023 16:18:33 Osteoarthritis of left knee joint 2612951003 11536 M17.12 [id number] MIRIAN DURHAM [address] [address] 11/10/2023 15:12:40 11/10/2023 15:47:51 Effusion of joint of left knee 9818848185 16145 M25.462 Left Osteoarthr itis of left knee joint 5852653159 29524 M17.12 [id number] [facility] [address] [place] [address] 02/09/2024 15:27:26 02/09/2024 15:39:58 Osteoarthritis of left knee joint 8281600503 90805 M17.12 Follow-up orthopedic assessment 228337639 Z47.89 Additional diagnosis detail: Encounter for orthopedic follow-up care [id number] MIRIAN BRADFORD Candimelonie [address] [facility] [address] [place] [address] 08/17/2024 13:56:40 08/17/2024 14:38:14 Osteoarthritis of left knee joint 4174900267 53734 M17.12 [id number] MD WHIT Jacobs [place] [address] [facility] [address] [place] [address] 07/13/2025 14:17:27 07/13/2025 14:46:00 Pain of left knee region 7998136157 77929 M25.562 22375857 Osteoarthr itis of left knee joint 4676281727 25146 M17.12 [id number] MD WHIT Jacobs Candimelonie [address] [facility] [address] [place] [address] 09/07/2025 08:38:13 09/07/2025 09:16:05 Pain of right knee joint 7815224087 91565 M25.561 [id number] Osteoarthr itis of right knee joint 1832100429 56407 M17.11 [id number] Health Concerns Section Related Observation LastModified by Organization Detai ls LastModified Time None Recorded Concern Status LastModified by Organization Details LastModified Time None Recorded Advance Directives Directive None Recorded Payers Insurance Date Sequence Insurance Name Policy Number Policy Nieves Covered Member ID Nieves Member ID Guarantor Name 09/07/2025 1 [employer] (PPO) [id number] Komal Corona [id number] Komal Corona 09/07/2025 1 [facility] [id number] Komal Corona [id number] Komal Corona Notes Date Note Type Note Provider Name and Address Organization Details Recorded Time 11/10/2023 text/html Pleasant 58-year-old female degenerative joint disease of the [...] MARY SCHWARZ PA-C [address] [facility],[address] [facility], [place], [address], [place] - [facility] 11/11/2023 07:37:02 02/09/2024 text/html Pleasant 58-year-old female degenerative joint disease of the left knee had aspiration and cortisone injectionL knee. cortisone 11/10/23. She states she is doing quite well and currently asymptomatic No interval change in history. Denies fevers, chills, flulike symptoms, cough, shortness of breath. She also denies any warmth or redness overlying the left knee joint. MARY SCHWARZ PA-C [address] [facility],[address] [facility], [place], [address], [place] [facility] 02/09/2024 15:44:34 08/17/2024 text/html 58-year-old female presents with chief complaint of left knee pain. She is known to have advanced osteoarthritis of the left knee. She reports that cortisone injections in the past have been highly effective at controlling her pain. Her most recent injection was on November 10, 2023 [address] Mr. Schwarz. She reports that this gave her good relief of her pain lasting up until approximately a month ago. She presents requesting cortisone injection today. Notably, she does report having had a fall in January of this year and again in June at [employer]. She states that it caused a temporary worsening of her pain but it since settled down. She reports that she uses a brace on her own. MARY MCKEON PA-C [address] [facility],[address], [place], [address], [place] [facility] 08/17/2024 14:34:22 OBGyn Episode No OBEpisode recorded.
--- OUTSIDE RECORDS SUMMARY | 2025-10-20 12:03 | XMS_ITS | Continuity of Care Document ---
Author Organization [place] [facility] AONE [place] Address [address] [facility] [address] [place] [address] Care Team Providers Care Hydroelectric Plant Electrical Engineer Name Role Phone MARTIN DENT Primary Care Provider [phone] MARTIN DENT Referring Provider MARTIN DENT Primary Care Provider Assessment Encounter Date Assessment Date Assessment LastModified by Organization Details LastModified Time 09/07/2025 09/07/2025 HPI : Patient is here [...] degrees. The knees are stable within those [id number]. The alignment of the left knee is [...] Time Details Appointments FOLLOW UP 2025 08:30A Mesfin JOE PA-C Not available Not available Not available Lab None recorded. Referral None recorded. Procedures None recorded. Surgeries None recorded. Imaging XR, knee, 1 or 2 view 2024 [email or web address] [facility], [address], [place], [address], 09/07/2025 09:16:05 Medication Orders Marcaine (PF) 0.5 % (5 mg/mL) injection solution 2024 025 [facility], [address] [facility], [place], [address], 09/07/2025 10:30:02 lidocaine (PF) 100 mg/5 mL (2 %) injection syringe 2024 025 [facility], [address] [place], [address], 09/07/2025 10:30:02 triamcino lone acetonide 40 mg/mL suspensio n for injection 2024 025 [facility], [address], [place], [address], 09/07/2025 10:30:02 Patient TargetsNo targets recorded. Patient Instructions Encounter Date Encounter Id Patient Instructions Last Modified By Organization Details Last Modified Time 09/07/2025 [id number] Lateral x-ray of the right knee taken today along with prior AP and patellar demonstrate degenerative joint disease with joint space narrowing, osteophyte formation, and subchondral sclerosis. There is [id number]-[id number] articulation in the medial compartment. Not available 09/07/2025 09:17:25 Reason for Referral None Reported. Problems Name Problem SNOMED Code Status Onset Date Resolution Date Notes Provider Name and Address Organization Details Recorded Time Pain of left calf 9977421513604 109 Active 2022 RADHA BOUCHER PA-C [address], [place], [address], [place] [facility] P 3 14:06:32 Pain in left lower limb 898058211 Active 2022 RADHA BOUCHER PA-C [address], [place], [address], [place] [facility], P 3 14:06:38 Type 2 diabetes mellitus 34456148 Active 2022 RADHA BOUCHER PA-C [address], [place], [address], [place] [facility], P 3 14:11:33 Effusion of joint of left knee 1456658878251 05 Active 2022 MARY NIXON PA-C [address], [place], [address], [place] [facility], P 3 10:04:41 Effusion of joint 115590885 Active 2022 MARY NIXON PA-C [address], [place], [address], [place] [facility], P 3 10:04:53 Osteoarthri tis of left knee joint 7016502113426 09 Active 2022 MARY NIXON PA-C [address], [place], [address], [place] [facility], P 3 12:39:00 Problem Notes None recorded. Procedures Surgical History Date Name Laterality Status Provider Name and Address Organization Details Recorded Time 5 MJG Knee Injection w/o US completed Maximilian Ramos MD [address], [place], [address], [place] [facility] 09/07/2025 09:15:30 5 MJG Knee Injection w/o US completed Maximilian Ramos MD [address] [facility] [address], [place], [address], [place] [facility] P 07/13/2025 14:44:20 4 MJG Knee injection w/US completed MARY JOE PA-C [address] [facility] [address] [address], [place], [address], [place] [facility], P 08/17/2024 14:26:58 3 Knee Joint/Bursa Asp & Inj completed MARY NIXON PA-C [address] [facility],[address], [place], [address], [place] [facility] P 11/11/2023 07:34:13 3 Knee Joint/Bursa Asp & Inj completed MARY NIXON PA-C [address] [facility],[address], [place], [address], [place] [facility] P 05/21/2023 07:52:08 3 Knee Joint/Bursa Asp & Inj completed MARY NIXON PA-C [address] [facility],[address], [place], [address], [place] [facility] P 05/07/2023 12:36:47 Imaging Results None recorded. [...] [facility] 08/31 completed Not Available Not Available [...] syringe Take 4 mL by injection route. 10/17/ 2025 active Not Available Not Available Not Avai [...] Updated DateTime 09/07/2025 154.94 cm 49.1 kg/m2 852746.[address] [facility] P 09/07/2025 08:56:36 Social History None recorded. Functional Status Question Answer Note LastModified by Organizat ion Details LastModified Time Do you use any illicit or recreational drugs? No [email or web address] Information not available 04/28/2023 Do you or have you ever used any other forms of tobacco or nicotine? No Information not available 04/28/2023 What is your level of alcohol consumption? None Information not available 04/28/2023 Mental Status None recorded. Family History Relationship Description Onset Age of this Age Resolved Age Notes LastModified by Organization Details LastModified Time Father Arthritis Not availabl e 04/28/2023 13:34:10 Father Heart disease [email or web address] Not available 2022 13:34:28 Father Hyperlipidem ia [email or web address] Not available 2022 13:34:42 Mother Diabetes mellitus Not available 2022 13:34:18 Mother Heart disease [email or web address] Not available 2022 13:34:28 Mother Hyperlipidem ia [email or web address] Not available 2022 13:34:42 Mother Essential hypertension [email or web address] Not available 05/2023 13:34:50 Sister Rheumatism [email or web address] Not availab le 04/28/2023 13:34:59 Medical History Condition Response Diabetes Y Gynecological HistoryNo gynecological history recorded. Obstetrics History GPAL:G 0 P 0 0 0 0 Past Encounters Encounter ID Performer Location Encounter Start Date Encounter Closed Date Diagnosis/Indication Diagnosis SNOMED-CT Code Diagnosis ICD10 Code Diagnosis IMO Codes Diagnosis Note [id number] MD WHIT Jacobs [address] [facility] [address] [place] [address] 09/07/2025 08:38:13 09/07/2025 09:16:05 Pain of right knee joint 1458323997 11099 M25.561 018851 Osteoarthr itis of right knee joint 8195710172 55575 M17.11 [id number] Health Concerns Section Related Observation LastModified by Organization Detai ls LastModified Time None Recorded Concern Status LastModified by Organization Details LastModified Time None Recorded Payers Encounter Date Sequence Insurance Name Policy Number Policy Nieves Covered Member ID Nieves Member ID Guarantor Name 09/07/2025 1 WAYNE (PPO) [id number] Komal Corona [id number] Komal Corona OBGyn Episode No OBEpisode recorded.
--- NOTE | 2025-10-20 12:07 | AM.OFFWIN_ITS ---
Intake Vital Signs 10/20/25 12:08 Height 5 ft 1.5 in Weight 118.841 kg BMI 48.7 BP 112/72 Blood Pressure Location Lt brachial Position Sitting Respiration 16 Pulse 85 Pulse Source Pulse Oximeter Pulse Oximetry (%) 98 Oxygen Delivery Method Room Air Intake Visit Reasons: EP Left ear flush Intake Note: Pt is here today c/o Lt ear blocked Patient Tobacco Use Status: Never used Tobacco Allergies No Known Allergies Allergy (Verified 06/08/25 10:14) HPI HPI Comments History of Present Illness Details Chief Complaint: ?My left ear keeps getting blocked with wax and needs to be flushed.? History of Present Illness: 60-year-old female presents for recurren t cerumen impaction of the left ear. She reports episodic blockage that ?builds up with wax? requiring periodic ear irrigations; last irrigation was ?a while? ago. Today her hearing improved immediately after forensic medical examiner?performed irrigation. She denies current ear pain. Patient routinely uses Q-tips and inserted one this morning. No home Debrox use. No prior knowledge of tympanic membrane perforation. Recurrent left ear cerumen impaction successfully treated with irrigation. 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 Patient educated on ear care and follow-up needs. Problem #1: Cerumen impaction ? bilateral (left symptomatic) Assessment: Cerumen obstructing both canals on presentation; removed with irrigation; hearing improved. Plan: * Ear irrigation completed in clinic; no further impaction noted. * Counseled to avoid Q-tips or other objects in ears. * Return to clinic PRN recurrent blockage. Problem #2: Left tympanic membrane perforation Assessment: Small perforation with scarring, appears old; currently no infection. Plan: * Augmentin (amoxicillin/clavulanate) BID for 7 days prescribed and sent to patient?s pharmacy today. * Avoid water, Debrox, or instrumentation to left ear until healed (may take several months). * Follow up with primary care provider in October for ENT referral to evaluate perforation and monitor healing. 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 Ears/Nose/Throat: Left ear blockage, improved hearing post-irrigation; denies ear pain. ? Constitutional, Eyes, Respiratory, Cardiovascular, Gastrointestinal, Genitourinary, Musculoskeletal, Neurological, Integumentary, Psychiatric: Not discussed. Const All systems reviewed & are unremarkable except as noted in HPI and below Physical Exam Exam Exam: General: Alert and conversant. HEENT: Bilateral cerumen impaction noted initially. Post-irrigation bilateral ear canals clear. Right TM intact, normal landmarks. Left TM with small perforation and surrounding scarring, appears chronic. No erythema, bulging, edema, or discharge. No foreign bodies. No evidence of otitis media or externa. No mastoid tendernss. No pain w/ external manipulation CV: RRR Lungs: CTA General: well appearing Vital Signs: Last Vital Signs Pulse 85 10/20/25 12:08 Resp 16 10/20/25 12:08 BP 112/72 10/20/25 12:08 Pulse Ox 98 10/20/25 12:08 Oxygen Delivery Method Room Air 10/20/25 12:08 BMI result Body Mass Index 48.7 vss Assessment & Plan Assessment & Plan (1) Cerumen impaction: Code(s): H61.20 - Impacted cerumen, unspecified ear (2) Perforated tympanic membrane: Code(s): H72.90 - Unspecified perforation of tympanic membrane, unspecified ear Plan Take your medications as prescribed. If you were prescribed antibiotics today, it is important that you take your medication to their entirety, do not skip any doses, do not finish them early. Follow-up with your primary care provider this week. Return to the emergency department with new or worsening symptoms. In case of emergency call 911 Medications: New amoxicillin-pot clavulanate 875-125 mg 1 tab PO BID 20 tabs 0RF 10 days Coding Level of Care Code Est Pt Level 3 (05546) Diagnoses Cerumen impaction H61.20 Perforated tympanic membrane H72.90
[2025-10-20 12:08] VITALS: BP 112/72; PULSE 85; RESP 16; O2SAT 98; BMI 48.7
== END 2025-10-20 12:31 | disposition home or self-care (01) ==
PROVIDERS: PCP Internal Medicine; Visit Provider Physician Assistant
DX: H61.20 Impacted cerumen, unspecified ear (principal); H72.90 Unspecified perforation of tympanic membrane, unspecified ear

== ENCOUNTER 2025-10-27 11:04 | Outpatient (REF) | payer BC, SELFPAY ==
--- OUTSIDE RECORDS SUMMARY | 2025-10-27 11:07 | XMS_ITS | Continuity of Care Document ---
Author Organization [place] [facility] AONE [place] Address [address] [facility] [address] [place] [address] Care Team Providers Care Stack Yield Engineer Name Role Phone MARTIN DENT Primary Care Provider [phone] MARTIN DENT Referring Provider [phone] MARTIN DENT Primary Care Provider Assessment Encounter [...] degrees. The knees are stable within those [id number]. The alignment of the left knee is [...] or 2 view 2024 [email or web address] [facility], [address], [place], [address], 09/07/2025 09:16:05 Medication Orders Marcaine (PF) 0.5 % (5 mg/mL) injection solution 2024 025 [facility], [address] [facility], [place], [address], 09/07/2025 10:30:02 lidocaine (PF) 100 mg/5 mL (2 %) injection syringe 2024 025 [facility], [address] [place], [address], 09/07/2025 10:30:02 triamcino lone acetonide 40 mg/mL suspensio n for injection 2024 025 [facility], [address], [place], [address], 09/07/2025 10:30:02 Patient TargetsNo targets recorded. Patient Instructions Encounter Date Encounter Id Patient Instructions Last Modified By Organization Details Last Modified Time 09/07/2025 [id number] Lateral x-ray of the right knee taken today along with prior AP and patellar demonstrate degenerative joint disease with joint space narrowing, osteophyte formation, and subchondral sclerosis. There is [id number]-gr-wyfp articulation in the medial compartment. Not available 09/07/2025 09:17:25 Reason for Referral None Reported. Problems Name Problem SNOMED Code Status Onset Date Resolution Date Notes Provider Name and Address Organization Details Recorded Time Pain of left calf 3912890503663 109 Active 2022 RADHA BOUCHER PA-C [address], [place], [address], [facility] P 3 14:06:32 Pain in left lower limb 538958203 Active 2022 RADHA BOUCHER PA-C [address], [place], [address], [facility], P 3 14:06:38 Type 2 diabetes mellitus 11452726 Active 2022 RADHA BOUCHER PA-C [address], [place], [address], [place] [facility], P 3 14:11:33 Effusion of joint of left knee 2016977335674 05 Active 2022 MARY NIXON PA-C [address], [place], [address], [place] [facility] P 3 10:04:41 Effusion of joint 067106506 Active 2022 MARY NIXON PA-C [address], [place], [address], [place] [facility], P 3 10:04:53 Osteoarthri tis of left knee joint 8202172529137 09 Active 2022 MARY NIXON PA-C [address], [place], [address], [place] [facility], P 3 12:39:00 Problem Notes None recorded. Procedures Surgical History Date Name Laterality Status Provider Name and Address Organization Details Recorded Time 5 MJG Knee Injection w/o US completed Maximilian Ramos MD [address], [place], [address], [place] [facility] 09/07/2025 09:15:30 5 MJG Knee Injection w/o US completed Maximilian Ramos MD [address] [address], [place], [address], [place] [facility], [facility] 07/13/2025 14:44:20 4 MJG Knee injection w/US completed MARY JOE PA-C [address] [facility] [address], [place], [address], [place] [facility], [facility] 08/17/2024 14:26:58 3 Knee Joint/Bursa Asp & Inj completed MARY NIXON PA-C [address] [facility],[address], [place], [address], [place] [facility], P 11/11/2023 07:34:13 3 Knee Joint/Bursa Asp & Inj completed MARY NIXON PA-C [address] [facility],[address], [place], [address], [place] [facility], P 05/21/2023 07:52:08 3 Knee Joint/Bursa Asp & Inj completed MARY NIXON PA-C [address] [facility], [place], [address], [place] [facility] P 05/07/2023 12:36:47 Imaging Results None recorded. [...] [facility] 08/31 completed Not Available Not Available Not [...] Updated DateTime 09/07/2025 154.94 cm 49.1 kg/m2 824348.[address] [facility] P 09/07/2025 08:56:36 Social History None recorded. Functional Status Question Answer Note LastModified by Organizat ion Details LastModified Time Do you use any illicit or recreational drugs? No Information not available 04/28/2023 Do you or have you ever used any other forms of tobacco or nicotine? No [email or web address] Information not available 04/28/2023 What is your level of alcohol consumption? None [email or web address] Information not available 04/28/2023 Mental Status None recorded. Family History Relationship Description Onset Age of this Age Resolved Age Notes LastModified by Organization Details LastModified Time Father Arthritis [email or web address] Not availabl e 04/28/2023 13:34:10 Father Heart disease Not available 2022 13:34:28 Father Hyperlipidem ia [email or web address] Not available 2022 13:34:42 Mother Diabetes mellitus [email or web address] Not available 2022 13:34:18 Mother Heart disease [email or web address] Not available 2022 13:34:28 Mother Hyperlipidem ia [email or web address] Not available 2022 13:34:42 Mother Essential hypertension [email or web address] Not available 05/2023 13:34:50 Sister Rheumatism [email or web address] Not availab le 04/28/2023 13:34:59 Medical History Condition Response Diabetes Y Gynecological HistoryNo gynecological history recorded. Obstetrics History GPAL:G 0 P 0 0 0 0 Past Encounters Encounter ID Performer Location Encounter Start Date Encounter Closed Date Diagnosis/Indication Diagnosis SNOMED-CT Code Diagnosis ICD10 Code Diagnosis IMO Codes Diagnosis Note [id number] MD WHIT Jacobs [address] [facility] [address] [place] [address] 09/07/2025 08:38:13 09/07/2025 09:16:05 Pain of right knee joint [id number] 78432 M25.561 916444 Osteoarthr itis of right knee joint 4204635869 33296 M17.11 [id number] Health Concerns Section Related Observation LastModified by Organization Detai ls LastModified Time None Recorded Concern Status LastModified by Organization Details LastModified Time None Recorded Payers Encounter Date Sequence Insurance Name Policy Number Policy Nieves Covered Member ID Nieves Member ID Guarantor Name 09/07/2025 1 WAYNE (PPO) [id number] Komal Corona [id number] Komal Corona OBGyn Episode No OBEpisode recorded.
--- OUTSIDE RECORDS SUMMARY | 2025-10-27 11:07 | XMS_ITS | Data Portability ---
Author Organization [place] [facility] [place] Address [address] [place] [address] Care Team Providers Care Director Global Development Name Role Phone JAILENE MARTIN Primary Care Provider Assessment Encounter Date Assessment [...] x-rays are consistent with advanced osteoarthritis with rqfz-ot-qjsb articulation. After discussion regarding treatment options she [...] degrees. The knees are stable within those cnlgvt-uu-dgsnow. The alignment of the left knee is [...] degrees. The knees are stable within those weviiv-pn-nbnznn. The alignment of the left knee is [...] 2 view 2024 025 [email or web address] [facility], [address], [place], [address], 09/07/2025 09:16:05 XR, knee, 4 or more view 2024 025 [facility], [address], [place], [address], 07/13/2025 14:46:52 XR, knee, 4 or more view 2023 024 [email or web address] [facility], [address], [place], [address], 08/17/2024 14:45:54 Medication Orders Marcaine (PF) 0.5 % (5 mg/mL) injection solution 2024 025 [facility], [address] [place] [address], [address], 09/07/2025 10:30:02 lidocaine (PF) 100 mg/5 mL (2 %) injection syringe 2024 025 [facility], [address] [place] [address], [address], 09/07/2025 10:30:02 triamcino lone acetonide 40 mg/mL suspensio n for injection 2024 025 [facility], [address] [place] [address], [address], 09/07/2025 10:30:02 Marcaine (PF) 0.5 % (5 mg/mL) injection solution 2024 025 [facility], [address] [place] [address], [address], 07/13/2025 14:46:52 lidocaine (PF) 100 mg/5 mL (2 %) injection syringe 2024 025 [facility], [address] [place] [address], [address], 07/13/2025 14:46:52 triamcino lone acetonide 40 mg/mL suspensio n for injection 2024 025 [facility], [address] [place] [address], [address], 07/13/2025 14:46:52 Marcaine (PF) 0.5 % (5 mg/mL) injection solution 2023 024 [facility], [address] [place] [address], [address], 08/17/2024 14:45:54 lidocaine (PF) 100 mg/5 mL (2 %) injection syringe 2023 024 [facility], [address] [place] [address], [address], 08/17/2024 14:45:54 triamcino lone acetonide 40 mg/mL suspensio n for injection 2023 024 [facility], [address] [place] [address], [address], 08/17/2024 14:45:54 Kenalog 40 mg/mL suspensio n for injection 2022 023 [facility], [address] [place] [address], [address], 11/11/2023 07:36:22 lidocaine (PF) 10 mg/mL (1 %) injection solution 2022 023 [facility], [address] [place], [address], 11/11/2023 07:36:22 Patient TargetsNo targets recorded. Patient Instructions Encounter Date Encounter Id Patient Instructions Last Modified By Organization Details Last Modified Time 11/10/2023 [id number] You have been provided with a cortisone [...] portal [facility]. Not available 11/11/2023 07:35:38 08/17/2024 [id number] 7 view X-ray sona dy obtained during today's office encounter show evidence of severe left knee osteoarthritis. There is joint space narrowing, subchondral sclerosis and marginal osteophytosis. Kellgren-Fly grade 3. No evidence of acute fracture or osteolytic findings. Not available 08/17/2024 14:27:41 07/13/2025 [id number] AP, lateral, Hodges, and patellar view radiographs of the left knee taken today demonstrate left knee degenerative joint disease with joint space narrowing, osteophyte formation, and subchondral sclerosis. There is mlbe-fw-fhhm articulation in the medial compartment. Not available 07/13/2025 14:46:25 09/07/2025 [id number] Lateral x-ray of the right knee taken today along with prior AP and patellar demonstrate degenerative joint disease with joint space narrowing, osteophyte formation, and subchondral sclerosis. There is jdgl-zp-vwtm articulation in the medial compartment. Not available 09/07/2025 09:17:25 Reason for Referral None Reported. Problems Name Problem SNOMED Code Status Onset Date Resolution Date Notes Provider Name and Address Organization Details Recorded Time Pain of left calf 1221831144310 109 Active 2022 RADHA BOUCHER PA-C [address], [place], [address], [place] [facility] 3 14:06:32 Pain in left lower limb 354280364 Active 2022 RADHA BOUCHER PA-C [address], [place], [address], [place] [facility] 3 14:06:38 Type 2 diabetes mellitus 73272793 Active 2022 RADHA BOUCHER PA-C [address], [place], [address], [place] [facility] 3 14:11:33 Effusion of joint of left knee 2513392541838 05 Active 2022 MARY SCHWARZ PA-C [address], [place], [place], [address], [place] [facility] 3 10:04:41 Effusion of joint 998420917 Active 2022 MARY SCHWARZ PA-C [address], [place], [place], [address], [place] [facility] 3 10:04:53 Osteoarthri tis of left knee joint 1209023984834 09 Active 2022 MARY SCHWARZ PA-C [address], [place], [address], [place] [facility] 3 12:39:00 Problem Notes None recorded. Procedures Surgical History Date Name Laterality Status Provider Name and Address Organization Details Recorded Time 5 MJG Knee Injection w/o US completed Maximilian Ramos MD [address], [place], [address], [place] [facility] 09/07/2025 09:15:30 5 MJG Knee Injection w/o US completed Maximilian Ramos MD [address], [place], [address], [place] [facility] 07/13/2025 14:44:20 4 MJG Knee injection w/US completed MARY MCKEON PA-C [address] [facility],[address], [place], [address], [place] [facility] 08/17/2024 14:26:58 3 Knee Joint/Bursa Asp & Inj completed MARY SCHWARZ PA-C [address], [place], [address], [place] [facility] 11/11/2023 07:34:13 3 Knee Joint/Bursa Asp & Inj completed MARY SCHWARZ PA-C [address], [place], [address], [place] [facility] 05/21/2023 07:52:08 3 Knee Joint/Bursa Asp & Inj completed MARY SCHWARZ PA-C [address], [place], [address], [place] [facility] 05/07/2023 12:36:47 Imaging Results None recorded. [...] [facility] 08/31 completed Not Available Not Available Not [...] Updated DateTime 09/07/2025 154.94 cm 49.1 kg/m2 912158.[address] [place] [facility] 09/07/2025 08:56:36 Social History None recorded. Functional Status Question Answer Note LastModified by Organizat ion Details LastModified Time Do you use any illicit or recreational drugs? No [email or web address] Information not available 04/28/2023 Do you or have you ever used any other forms of tobacco or nicotine? No [email or web address] Information not available 04/28/2023 What is your level of alcohol consumption? None [email or web address] Information not available 04/28/2023 Mental Status None recorded. Family History Relationship Description Onset Age of this Age Resolved Age Notes LastModified by Organization Details LastModified Time Father Arthritis [email or web address] Not availabl e 04/28/2023 13:34:10 Father Heart disease [email or web address] Not available 2022 13:34:28 Father Hyperlipidem ia Not available 2022 13:34:42 Mother Diabetes mellitus [email or web address] Not available 2022 13:34:18 Mother Heart disease [email or web address] Not available 2022 13:34:28 Mother Hyperlipidem ia [email or web address] Not available 2022 13:34:42 Mother Essential hypertension Not available 05/2023 13:34:50 Sister Rheumatism [email or web address] Not availab le 04/28/2023 13:34:59 Medical History Condition Response Diabetes Y Gynecological HistoryNo gynecological history recorded. Obstetrics History GPAL:G 0 P 0 0 0 0 Past Encounters Encounter ID Performer Location Encounter Start Date Encounter Closed Date Diagnosis/Indication Diagnosis SNOMED-CT Code Diagnosis ICD10 Code Diagnosis IMO Codes Diagnosis Note [id number] [facility] [address] [facility] [address] [place] [address] 04/28/2023 12:59:53 04/28/2023 14:05:59 Pain in left lower limb 064964537 M79.605 Pain of left calf 612147 5022 514666 M79.662 Body mass index 40+ - severely obese 153785290 Z68.42 BMI 49 Type 2 bennett betes mellitus 30451869 E11.9 [id number] MIRIAN DURHAMmelonie 299 [facility] [address] [place] [address] 05/07/2023 09:13:35 05/07/2023 10:25:36 Effusion of joint of left knee 8107620826 55109 M25.462 Effusion of joint 533706 008 M25.40 [id number] [facility] [address] [address] 05/21/2023 09:39:09 05/21/2023 10:16:35 Osteoarthritis of left knee joint 1159645791 90166 M17.12 [id number] MIRIAN ANTONIOmelonie [address] [address] 08/31/2023 15:46:10 08/31/2023 16:18:33 Osteoarthritis of left knee joint 5391633051 83099 M17.12 [id number] MIRIAN DURHAM [address] [address] 11/10/2023 15:12:40 11/10/2023 15:47:51 Effusion of joint of left knee 4731679389 30980 M25.462 Left Osteoarthr itis of left knee joint 8737732926 13140 M17.12 [id number] MIRIAN DURHAMmelonie 299 [facility] [address] [facility] [place] [address] 02/09/2024 15:27:26 02/09/2024 15:39:58 Osteoarthritis of left knee joint 1795239190 07230 M17.12 Follow-up orthopedic assessment 365706005 Z47.89 Additional diagnosis detail: Encounter for orthopedic follow-up care [id number] MIRIAN BRADFORD Candimelonie 299 [facility] [address] [facility] [place] [address] 08/17/2024 13:56:40 08/17/2024 14:38:14 Osteoarthritis of left knee joint 2162719275 67896 M17.12 [id number] MD WHIT Jacobs [place] 299 [facility] [address] [facility] [place] [address] 07/13/2025 14:17:27 07/13/2025 14:46:00 Pain of left knee region 0020712783 51346 M25.562 [id number] Osteoarthr itis of left knee joint 2368691060 87995 M17.12 [id number] MD WHIT Jacobs Candim[place]ie [address] [facility] [address] [facility] [place] [address] 09/07/2025 08:38:13 09/07/2025 09:16:05 Pain of right knee joint 8844590131 67509 M25.561 [id number] Osteoarthr itis of right knee joint 3362913012 28369 M17.11 [id number] Health Concerns Section Related Observation LastModified by Organization Detai ls LastModified Time None Recorded Concern Status LastModified by Organization Details LastModified Time None Recorded Advance Directives Directive None Recorded Payers Insurance Date Sequence Insurance Name Policy Number Policy Nieves Covered Member ID Nieves Member ID Guarantor Name 09/07/2025 1 [employer] (PPO) [id number] Komal Corona [id number] Komal Corona 09/07/2025 1 [facility] [id number] Komal Corona [id number] Komal Corona Notes Date Note Type Note [...] left knee joint. MARY SCHWARZ PA-C [address] [facility],[address] [facility], [place], [address], [place] [facility] 11/11/2023 07:37:02 02/09/2024 text/html Pleasant 58-year-old female degenerative joint disease of the left knee had aspiration and cortisone injectionL knee. cortisone 11/10/23. She states she is doing quite well and currently asymptomatic No interval change in history. Denies fevers, chills, flulike symptoms, cough, shortness of breath. She also denies any warmth or redness overlying the left knee joint. MARY SCHWARZ PA-C [address] [facility],[address] [facility], [place], [address], [place] [facility] 02/09/2024 15:44:34 08/17/2024 text/html 58-year-old female [...] this year and again in June at [facility]. She states that it caused a temporary worsening of her pain but it since settled down. She reports that she uses a brace on her own. MARY MCKEON PA-C [address] [facility],[address], [place], [address], [place] [facility] 08/17/2024 14:34:22 OBGyn Episode No OBEpisode recorded.
--- OUTSIDE RECORDS SUMMARY | 2025-10-27 11:07 | XMS_ITS | Clinical Summary ---
Author Organization [facility] Prior to 04/21/[address] [place] [address] Care Team Providers Care Support Services Rep Name Role Phone Heladio Wang MD Primary Care Provider [phone] Allergies No known active allergies Medications Medication [...] age to complete this topic Care Teams Support Services Rep Relationship Specialty Start Date End Date Heladio Wang MD [address] [place] [address] PCP - General Internal Medicine 01/19/20
[2025-10-27 13:47] LABS: MANUAL DIFF FLAG NO
[2025-10-27 13:51] LABS: Hematocrit 42.8 % (37.0-47.0); Hemoglobin 13.0 g/dl (12.0-16.0); Imm Gran Abs Auto 0.03 X10*3/uL (0.00-0.03); Imm Gran Pct Auto 0.4 % (0.0-0.4); Lymphocytes Absolute Auto 1.6 X10*3/uL (1.2-4.9); Mean Corpuscular HGB Conc 30.4 g/dl (31.0-35.0); Mean Corpuscular Hemoglobin 24.1 pg (27.0-33.0); Mean Corpuscular Volume 79.3 fL (80.0-98.0); NRBC Abs Auto 0.000 X10*3/uL (0.0-0.012); NRBC Pct Auto 0.0 /100WBC (0.0-0.2); Platelet Count 381 X10*3/uL (160-400); Red Blood Count 5.40 X10*6/uL (4.20-5.50); White Blood Count 7.5 X10*3/uL (4.8-10.8)
[2025-10-27 18:10] LABS: Alanine Aminotransferase 36 U/L (0-31); Albumin Level 4.3 g/dL (3.5-5.0); Alkaline Phosphatase 112 U/L (39-117); Anion Gap 15 (12-20); Aspartate Amino Transferase 34 U/L (5-31); Blood Urea Nitrogen 18 mg/dL (9-16); Calcium 9.0 mg/dL (8.4-10.2); Carbon Dioxide 25 mmol/L (22-29); Chloride 107 mmol/L (96-108); Cholesterol 143 mg/dL (<200); Estimated Glomerular Filt Rate > 60; HDL Cholesterol 37 mg/dL (>40); Potassium 4.2 mmol/L (3.3-5.1); Sodium 143 mmol/L (135-145); Total Protein 7.0 g/dL (6.5-8.0); Triglycerides 138 mg/dL (<150)
== END 2025-10-27 11:05 | disposition home or self-care (01) ==
LOC: HO.HMGCLDS 11:04
PROVIDERS: PCP Internal Medicine; Visit Provider Internal Medicine
DX: E11.9 Type 2 diabetes mellitus without complications (principal); E78.5 Hyperlipidemia, unspecified; E66.9 Obesity, unspecified
CPT/HCPCS: 36415; 80053; 80061; 83036; 84443; 85025

== ENCOUNTER 2025-11-02 11:30 | Outpatient (AMB) | payer BC, SELFPAY ==
[2025-11-02 11:47] VITALS: BP 136/78; PULSE 87; RESP 17; TEMP 36.6; O2SAT 95; BMI 49.4
--- NOTE | 2025-11-02 11:47 | MHC.PC.OV ---
Vital Signs 11/02/25 11:47 Height 5 ft 1.5 in Weight 266 lb BMI 49.4 BP 136/78 Blood Pressure Location Lt brachial Position Sitting Respiration 17 Pulse 87 Pulse Source Pulse Oximeter Temp 97.8 F Temp Source Oral Pulse Oximetry (%) 95 Oxygen Delivery Method Room Air Intake Visit Reasons: ? UTI Intake Note: Pt is here today for a sick visit. Pt c/o vaginal pain and itchiness for 3 days now. Allergies No Known Allergies Allergy (Verified 11/02/25 11:51) Medication List - Last Reconciled 11/02/25 by Michaela Corbett MD aspirin 81 mg PO DAILY atorvastatin 20 mg PO DAILY blood sugar diagnostic (FreeStyle Lite Strips) use twice daily to test blood sugar blood-glucose meter (FreeStyle Lite Meter kit) As directed fluconazole 100 mg PO DAILY 14 days glipizide ER 2.5 mg PO DAILY Jardiance (empagliflozin) 25 mg PO QAM NS lancets (FreeStyle Lancets) use 1 strip to test blood sugar twice a day metformin ER 1,000 mg (2 x 500 mg) PO BID nystatin 1 appl topical BID Tobacco use date assessed: 11/02/25 Dental Screening Dental Screen Date: 02/21/24 HPI ? UTI HPI Details Patient presents complaining of intense pruritus burning sensation irritation of her perineum getting worse over last few weeks. Patient denies vaginal discharge dysuria, abdominal or pelvic pain. Type 2 diabetes stable on current medications patient has not been compliant with ADA diet. 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 Housing: House Alcohol intake: current Alcohol intake frequency: holidays/special occasions only Patient Tobacco Use Status: Never used Tobacco e-Cigarette/Vaping Use: Never Used service: No Current occupational status: employed Cognitive needs: No Hearing needs: No Vision needs: Yes Questionnaire Thrive Questionnaire Date Thrive assessed: 02/26/25 I am a: Patient What is your living situation today?: I have a steady place to live Within the past 12 months, did the food you bought not last and you didn't have the money to get more?: Never true Within the past 12 months, did you worry whether your food would run out before you got money to buy more?: Never true Do you have trouble paying for medicines?: No Do you have trouble getting transportation to medical appointments?: No Do you have trouble paying your heating and electricity bill?: No Do you have trouble taking care of your child, family member or friend?: No Do you have trouble with day-to-day activities such as bathing, preparing meals, shopping, managing finances, etc.?: No Are you currently unemployed and looking for a job?: No Are you interested in more education?: No Please select the resources that you would like help with: None Currently or been in a relationship where the following occur: No concerns reported THRIVE Score: 0 VICTORIANO-7 AMB Questionnaire VICTORIANO-7 Date VICTORIANO - 7 assessed: 03/05/25 Source: Developed by Drs. Pete Chung, Iris Oh, Leon Lopez and colleagues, with an educational lamont from [employer]. Review of Systems Const All systems reviewed & are unremarkable except as noted in HPI and below Eyes Reports no additional complaints Card Reports no additional complaints Resp Reports no additional complaints Reports no additional complaints Physical exam (Primary Care) Vital Signs: Last Vital Signs Temp 97.8 F 11/02/25 11:47 Pulse 87 11/02/25 11:47 Resp 17 11/02/25 11:47 BP 136/78 11/02/25 11:47 Pulse Ox 95 11/02/25 11:47 Oxygen Delivery Method Room Air 11/02/25 11:47 BMI result Body Mass Index 49.4 Tobacco/Smoking Status: Tobacco use Status Tobacco use date assessed 11/02/25 11/02/25 11:55 Patient Tobacco Use Status Never used Tobacco 11/02/25 11:55 e-Cigarette/Vaping Use Never Used 11/02/25 11:55 Thrive Assessment: Date of Thrive Assessment Date Thrive assessed 02/26/25 11/02/25 11:55 Currently or been in a relationship where the following occur: No concerns reported Const General: no acute distress [facility] Head: Yes normal to inspection Eyes General: appearance normal, both eyes and all related structures Neck Neck: Yes supple Cardio Rhythm: regular rhythm Heart sounds: S1 normal heart sound present and S2 normal heart sound present External Female Exam: erythema (Extensive erythema, swelling excoriations of perineum, no vaginal discharge) Speculum Exam - Vagina: normal appearance of the vagina Results AMB Urinalysis, Automated UA Leukoctes 0 Ramsey/uL Last Edit by J CARLOS Parker on 11/02/25 12:02 UA Nitrite Negative Last Edit by J CARLOS Parker on 11/02/25 12:02 UA Urobilinogen 0.2 mg/dL Last Edit by J CARLOS Parker on 11/02/25 12:02 UA Protein 0 mg/dL Last Edit by J CARLOS Parker on 11/02/25 12:02 UA pH 6.5 Last Edit by J CARLOS Parker on 11/02/25 12:02 UA Blood 0 Keo/uL Last Edit by J CARLOS Parker on 11/02/25 12:02 UA Specific [place] 1.015 Last Edit by J CARLOS Parker on 11/02/25 12:02 UA Ketone Negative Last Edit by J CARLOS Parker on 11/02/25 12:02 UA Bilirubin 0 mg/dL Last Edit by Olga Jiménez Abdoulaye on 11/02/25 12:02 UA Glucose 500 mg/dL Last Edit by Olga Jiménez Abdoulaye on 11/02/25 12:02 Results Reviewed Results Reviewed: Laboratory Last Values Urine pH (Auto) 6.5 11/02/25 12:01 Specific [place] (Auto) 1.015 11/02/25 12:01 Urine Protein (Auto) 0 mg/dL 11/02/25 12:01 Glucose (UA)(Auto) 500 mg/dL 11/02/25 12:01 Urine Ketones (Auto) Negative 11/02/25 12:01 Urine Blood (Auto) 0 Keo/uL 11/02/25 12:01 Urine Nitrite (Auto) Negative 11/02/25 12:01 Urine Bilirubin (Auto) 0 mg/dL 11/02/25 12:01 Urine Urobilinogen (Auto) 0.2 mg/dL 11/02/25 12:01 Leukocyte Esterase (Auto) 0 Ramsey/uL 11/02/25 12:01 Coding Level of Care Code Est Pt Level 4 (10852) Diagnoses Candidiasis of genitalia B37.49 DM type 2 (diabetes mellitus, type 2) E11.9 Assessment & Plan Assessment & Plan (1) Candidiasis of genitalia: Code(s): B37.49 - Other urogenital candidiasis Category: Medical Plan: Fluconazole 100 mg daily for 2 weeks and topical nystatin powder prescribed. Supportive care discussed with the patient (2) DM type 2 (diabetes mellitus, type 2): Code(s): E11.9 - Type 2 diabetes mellitus without complications Category: Medical Plan: ADA diet regular exercise weight loss discussed with the patient continue current medications Orders: Orders AMB Urinalysis Automated Today Z13.9 - Encounter for screening, unspecified Medications: New fluconazole 100 mg PO DAILY 14 tabs 0RF 14 days nystatin 1 appl topical BID 60 grams 0RF
== END 2025-11-02 13:52 | disposition home or self-care (01) ==
LOC: HO.HMCC 11:31
PROVIDERS: PCP Internal Medicine; Visit Provider Internal Medicine
DX: B37.49 Other urogenital candidiasis (principal); E11.9 Type 2 diabetes mellitus without complications; Z13.9 Encounter for screening, unspecified

== ENCOUNTER → 2025-11-02 11:30 | Outpatient (BNVA) | payer BC, SELFPAY | PROVIDERS: PCP Internal Medicine; Visit Provider Internal Medicine | DX: B37.49 Other urogenital candidiasis (principal); E11.9 Type 2 diabetes mellitus without complications | CPT/HCPCS: 81003 ==

== ENCOUNTER 2025-11-06 07:49 | Outpatient (AMB) | payer OTHER, SELFPAY ==
--- OUTSIDE RECORDS SUMMARY | 2025-11-06 07:57 | XMS_ITS | Data Portability ---
Author Organization [place] [facility] [place] Address [address] [place] [address] Care Team Providers Care Process Project Engineer Name Role Phone JAILENE MARTIN Primary Care [...] x-rays are consistent with advanced osteoarthritis with vlxo-vh-jawd articulation. After discussion regarding treatment options she [...] degrees. The knees are stable within those ywxhhs-fo-genupp. The alignment of the left knee is [...] degrees. The knees are stable within those rgorwu-xr-uyghay. The alignment of the left knee is [...] 2 view 2024 025 [email or web address] [facility], [address], [place], [address], 09/07/2025 09:16:05 XR, knee, 4 or more view 2024 025 [facility], [address], [place], [address], 07/13/2025 14:46:52 XR, knee, 4 or more view 2023 024 [email or web address] [facility], [address], [place], [address], 08/17/2024 14:45:54 Medication Orders Marcaine (PF) 0.5 % (5 mg/mL) injection solution 2024 025 [facility], [address] [place] [address], [address], 09/07/2025 10:30:02 lidocaine (PF) 100 mg/5 mL (2 %) injection syringe 2024 025 [facility], [address] [place] [address], [id number], 09/07/2025 10:30:02 triamcino lone acetonide 40 mg/mL suspensio n for injection 2024 025 [facility], [address] [place] [address], [address], 09/07/2025 10:30:02 Marcaine (PF) 0.5 % (5 mg/mL) injection solution 2024 025 [facility], [address] [place] [address], [id number], 07/13/2025 14:46:52 lidocaine (PF) 100 mg/5 mL (2 %) injection syringe 2024 025 [facility], [address] [place] [address], [address], 07/13/2025 14:46:52 triamcino lone acetonide 40 mg/mL suspensio n for injection 2024 025 [facility], [address] [place] [address], [address], 07/13/2025 14:46:52 Marcaine (PF) 0.5 % (5 mg/mL) injection solution 2023 024 [facility], [address] [place] [address], [address], 08/17/2024 14:45:54 lidocaine (PF) 100 mg/5 mL (2 %) injection syringe 2023 024 [facility], [address] [place] [address], [address], 08/17/2024 14:45:54 triamcino lone acetonide 40 mg/mL suspensio n for injection 2023 024 [facility], [address] [place] [address], [address], 08/17/2024 14:45:54 Kenalog 40 mg/mL suspensio n for injection 2022 023 [facility], [address] [place] [address], [id number], 11/11/2023 07:36:22 lidocaine (PF) 10 mg/mL (1 %) injection solution 2022 023 [facility], [address] [place], [address], 11/11/2023 07:36:22 Patient TargetsNo targets recorded. Patient Instructions Encounter Date Encounter Id Patient Instructions Last Modified By Organization Details Last Modified Time 11/10/2023 [id number] You have been provided with a cortisone [...] portal SEVERO. Not available 11/11/2023 07:35:38 08/17/2024 [id number] 7 view X-ray sona dy obtained during today's office encounter show evidence of severe left knee osteoarthritis. There is joint space narrowing, subchondral sclerosis and marginal osteophytosis. Kellgren-Fly grade 3. No evidence of acute fracture or osteolytic findings. Not available 08/17/2024 14:27:41 07/13/2025 [id number] AP, lateral, Hodges, and patellar view radiographs of the left knee taken today demonstrate left knee degenerative joint disease with joint space narrowing, osteophyte formation, and subchondral sclerosis. There is ibbp-xx-frci articulation in the medial compartment. Not available 07/13/2025 14:46:25 09/07/2025 [id number] Lateral x-ray of the right knee taken today along with prior AP and patellar demonstrate degenerative joint disease with joint space narrowing, osteophyte formation, and subchondral sclerosis. There is mkqh-th-yftf articulation in the medial compartment. Not available 09/07/2025 09:17:25 Reason for Referral None Reported. Problems Name Problem SNOMED Code Status Onset Date Resolution Date Notes Provider Name and Address Organization Details Recorded Time Pain of left calf 5263890900842 109 Active 2022 RADHA BOUCHER PA-C [address], [place], [address], [place] [facility] 3 14:06:32 Pain in left lower limb 641625762 Active 2022 RADHA BOUCHER PA-C [address], [place], [address], [place] [facility], [facility] 3 14:06:38 Type 2 diabetes mellitus 42274674 Active 2022 RADHA BOUCHER PA-C [address], [place], [address], [place] [facility], [facility] 3 14:11:33 Effusion of joint of left knee 5549822475081 05 Active 2022 MARY SCHWARZ PA-C [address], [place], [place], [address], [place] [facility], [facility] 3 10:04:41 Effusion of joint 673729115 Active 2022 MARY SCHWARZ PA-C [address], [place], [place], [address], [place] [facility], [facility] 3 10:04:53 Osteoarthri tis of left knee joint 1691703333203 09 Active 2022 MARY SCHWARZ PA-C [address], [place], [address], [place] [facility], [facility] 3 12:39:00 Problem Notes None recorded. Procedures Surgical History Date Name Laterality Status Provider Name and Address Organization Details Recorded Time 5 MJG Knee Injection w/o US completed Maximilian Ramos MD [address], [place], [address], [place] [facility], [facility] 09/07/2025 09:15:30 5 MJG Knee Injection w/o US completed Maximilian Ramos MD [address], [place], [address], [place] [facility], [facility] 07/13/2025 14:44:20 4 MJG Knee injection w/US completed MARY MCKEON PA-C [address] [facility],[address], [place], [address], [place] [facility], [facility] 08/17/2024 14:26:58 3 Knee Joint/Bursa Asp & Inj completed MARY SCHWARZ PA-C [address] [facility] [address], [place], [address], [place] [facility] 11/11/2023 07:34:13 3 Knee Joint/Bursa Asp & Inj completed MARY SCHWARZ PA-C [address], [place], [address], [place] [facility], [facility] 05/21/2023 07:52:08 3 Knee Joint/Bursa Asp & Inj completed MARY SCHWARZ PA-C [address], [place], [address], [place] [facility] 05/07/2023 12:36:47 Imaging Results None recorded. [...] THE [facility] T AT [facility] [place] 08/31 completed Not Available Not Available Not [...] Updated DateTime 09/07/2025 154.94 cm 49.1 kg/m2 294329.[address] [facility] 09/07/2025 08:56:36 Social History None recorded. Functional Status Question Answer Note LastModified by Organizat ion Details LastModified Time Do you use any illicit or recreational drugs? No [email or web address] Information not available 04/28/2023 Do you or have you ever used any other forms of tobacco or nicotine? No [email or web address] Information not available 04/28/2023 What is your level of alcohol consumption? None [email or web address] Information not available 04/28/2023 Mental Status None recorded. Family History Relationship Description Onset Age of this Age Resolved Age Notes LastModified by Organization Details LastModified Time Father Arthritis [email or web address] Not availabl e 04/28/2023 13:34:10 Father Heart disease [email or web address] Not available 2022 13:34:28 Father Hyperlipidem ia [email or web address] Not available 2022 13:34:42 Mother Diabetes mellitus [email or web address] Not available 2022 13:34:18 Mother Heart disease [email or web address] Not available 2022 13:34:28 Mother Hyperlipidem ia [email or web address] Not available 2022 13:34:42 Mother Essential hypertension [email or web address] Not available 05/2023 13:34:50 Sister Rheumatism [email or web address] Not availab le 04/28/2023 13:34:59 Medical History Condition Response Diabetes Y Gynecological HistoryNo gynecological history recorded. Obstetrics History GPAL:G 0 P 0 0 0 0 Past Encounters Encounter ID Performer Location Encounter Start Date Encounter Closed Date Diagnosis/Indication Diagnosis SNOMED-CT Code Diagnosis ICD10 Code Diagnosis IMO Codes Diagnosis Note [id number] [facility] [address] [facility] [address] [place] [address] 04/28/2023 12:59:53 04/28/2023 14:05:59 Pain in left lower limb 667996833 M79.605 Pain of left calf 650699 5763 220835 M79.662 Body mass index 40+ - severely obese 457054109 Z68.42 BMI 49 Type 2 bennett betes mellitus 31332519 E11.9 [id number] MIRIAN DURHAMmelonie [address] [facility] [address] [place] [address] 05/07/2023 09:13:35 05/07/2023 10:25:36 Effusion of joint of left knee 9134325390 66577 M25.462 Effusion of joint 728341 008 M25.40 [id number] [facility]IRIAN DURHAM [facility] [address] [address] 05/21/2023 09:39:09 05/21/2023 10:16:35 Osteoarthritis of left knee joint 5492981307 35343 M17.12 [id number] MIRIAN ANTONIOmelonie [address] [address] 08/31/2023 15:46:10 08/31/2023 16:18:33 Osteoarthritis of left knee joint 3610337292 04919 M17.12 [id number] MIRIAN DURHAM [address] [address] 11/10/2023 15:12:40 11/10/2023 15:47:51 Effusion of joint of left knee 8970459146 65813 M25.462 Left Osteoarthr itis of left knee joint 7012076455 17491 M17.12 [id number] MIRIAN DURHAMmelonie [address] [facility] [address] [place] [address] 02/09/2024 15:27:26 02/09/2024 15:39:58 Osteoarthritis of left knee joint 7732698061 57858 M17.12 Follow-up orthopedic assessment 993576257 Z47.89 Additional diagnosis detail: Encounter for orthopedic follow-up care [id number] MIRIAN BRADFORD Candimelonie [address] [facility] [address] [place] [address] 08/17/2024 13:56:40 08/17/2024 14:38:14 Osteoarthritis of left knee joint 6646906995 05736 M17.12 [id number] MD WHIT Jacobs [place] [address] [facility] [address] [place] [address] 07/13/2025 14:17:27 07/13/2025 14:46:00 Pain of left knee region 7618730111 87030 M25.562 52621510 Osteoarthr itis of left knee joint 8070812371 09067 M17.12 [id number] MD WHIT Jacobs [place] [address] [facility] [address] [place] [address] 09/07/2025 08:38:13 09/07/2025 09:16:05 Pain of right knee joint 0182938925 25805 M25.561 294320 Osteoarthr itis of right knee joint 1718561682 88951 M17.11 [id number] Health Concerns Section Related Observation LastModified by Organization Detai ls LastModified Time None Recorded Concern Status LastModified by Organization Details LastModified Time None Recorded Advance Directives Directive None Recorded Payers Insurance Date Sequence Insurance Name Policy Number Policy Nieves Covered Member ID Nieves Member ID Guarantor Name 09/07/2025 1 WAYNE (PPO) [id number] Komal [place] [id number] Komal [place] 09/07/2025 1 [facility] [id number] Komal [place] [id number] Komal [place] Notes Date Note Type Note [...] left knee joint. MARY SCHWARZ PA-C [address] [facility],[address] [facility], [place], [address], [place] [facility] 11/11/2023 07:37:02 02/09/2024 text/html Pleasant 58-year-old female degenerative joint disease of the left knee had aspiration and cortisone injectionL knee. cortisone 11/10/23. She states she is doing quite well and currently asymptomatic No interval change in history. Denies fevers, chills, flulike symptoms, cough, shortness of breath. She also denies any warmth or redness overlying the left knee joint. MARY SCHWAZR PA-C [address] [facility],[address] [facility], [place], [address], [place] [facility] 02/09/2024 15:44:34 08/17/2024 text/html 58-year-old female [...] this year and again in June at [employer]. She states that it caused a temporary worsening of her pain but it since settled down. She reports that she uses a brace on her own. MARY MCKEON PA-C [address] [facility],[address], [place], [address], [place] [facility] 08/17/2024 14:34:22 OBGyn Episode No OBEpisode recorded.
--- OUTSIDE RECORDS SUMMARY | 2025-11-06 07:57 | XMS_ITS | Continuity of Care Document ---
Author Organization [place] [facility] [place] Address [address] [facility] [address] [place] [address] Care Team Providers Care Plate Worker Helper Name Role Phone MARTIN DENT Primary Care Provider [phone] MARTIN DENT Referring Provider MARTIN DENT Primary [...] degrees. The knees are stable within those riaebu-hm-ckhoco. The alignment of the left knee is [...] or 2 view 2024 [email or web address] [facility], [address], [place], [address], 09/07/2025 09:16:05 Medication Orders Marcaine (PF) 0.5 % (5 mg/mL) injection solution 2024 025 [facility], [address] [facility], [place], [address], 09/07/2025 10:30:02 lidocaine (PF) 100 mg/5 mL (2 %) injection syringe 2024 025 [facility], [address] [place], [address], 09/07/2025 10:30:02 triamcino lone acetonide 40 mg/mL suspensio n for injection 2024 025 [facility], [address], [place], [address], 09/07/2025 10:30:02 Patient TargetsNo targets recorded. Patient Instructions Encounter Date Encounter Id Patient Instructions Last Modified By Organization Details Last Modified Time 09/07/2025 [id number] Lateral x-ray of the right knee taken today along with prior AP and patellar demonstrate degenerative joint disease with joint space narrowing, osteophyte formation, and subchondral sclerosis. There is fxmo-ib-jbsr articulation in the medial compartment. Not available 09/07/2025 09:17:25 Reason for Referral None Reported. Problems Name Problem SNOMED Code Status Onset Date Resolution Date Notes Provider Name and Address Organization Details Recorded Time Pain of left calf 3342119263239 109 Active 2022 RADHA BOUCHER PA-C [address], [place], [address], [place] [facility] 3 14:06:32 Pain in left lower limb 763323594 Active 2022 RADHA BOUCHER PA-C [address], [place], [address], [place] [facility], [facility] 3 14:06:38 Type 2 diabetes mellitus 18336744 Active 2022 RADHA BOUCHER PA-C [address], [place], [address], [place] [facility], [facility] 3 14:11:33 Effusion of joint of left knee 1183905250542 05 Active 2022 MARY NIXON PA-C [address], [place], [address], [place] [facility] 3 10:04:41 Effusion of joint 631108870 Active 2022 MARY NIXON PA-C [address], [place], [address], [place] [facility], P 3 10:04:53 Osteoarthri tis of left knee joint 9073240596319 09 Active 2022 MARY NIXON PA-C [address], [place], [address], [place] [facility] P 3 12:39:00 Problem Notes None recorded. Procedures Surgical History Date Name Laterality Status Provider Name and Address Organization Details Recorded Time 5 MJG Knee Injection w/o US completed Maximilian Ramos MD [address], [place], [address], [place] [facility], [facility] 09/07/2025 09:15:30 5 MJG Knee Injection w/o US completed Maximilian Ramos MD [address], [place], [address], [place] [facility], [facility] 07/13/2025 14:44:20 4 MJG Knee injection w/US completed MARY JOE PA-C [address], [place], [address], [place] [facility], P 08/17/2024 14:26:58 3 Knee Joint/Bursa Asp & Inj completed MARY NIXON PA-C [address] [facility],[address], [place], [address], [place] [facility], P 11/11/2023 07:34:13 3 Knee Joint/Bursa Asp & Inj completed MARY NIXON PA-C [address] [facility],[address], [place], [address], [place] [facility], P 05/21/2023 07:52:08 3 Knee Joint/Bursa Asp & Inj completed MARY NIXON PA-C [address] [facility],[address], [place], [address], [place] [facility], [facility] 05/07/2023 12:36:47 Imaging Results None recorded. [...] THE [facility] T AT [facility] 08/31 completed Not Available Not Available Not [...] Updated DateTime 09/07/2025 154.94 cm 49.1 kg/m2 032663.[address] [facility], P 09/07/2025 08:56:36 Social History None recorded. Functional Status Question Answer Note LastModified by Organizat ion Details LastModified Time Do you use any illicit or recreational drugs? No [email or web address] Information not available 04/28/2023 Do you or have you ever used any other forms of tobacco or nicotine? No Information not available 04/28/2023 What is your level of alcohol consumption? None [email or web address] Information not available 04/28/2023 Mental Status None recorded. Family History Relationship Description Onset Age of this Age Resolved Age Notes LastModified by Organization Details LastModified Time Father Arthritis [email or web address] Not availabl e 04/28/2023 13:34:10 Father Heart disease Not available 2022 13:34:28 Father Hyperlipidem ia [email or web address] Not available 2022 13:34:42 Mother Diabetes mellitus [email or web address] Not available 2022 13:34:18 Mother Heart disease [email or web address] Not available 2022 13:34:28 Mother Hyperlipidem ia [email or web address] Not available 2022 13:34:42 Mother Essential hypertension Not available 05/2023 13:34:50 Sister Rheumatism Not availab le 04/28/2023 13:34:59 Medical History Condition Response Diabetes Y Gynecological HistoryNo gynecological history recorded. Obstetrics History GPAL:G 0 P 0 0 0 0 Past Encounters Encounter ID Performer Location Encounter Start Date Encounter Closed Date Diagnosis/Indication Diagnosis SNOMED-CT Code Diagnosis ICD10 Code Diagnosis IMO Codes Diagnosis Note [id number] MD WHIT Jacobs [address] [facility] [address] [place] [address] 09/07/2025 08:38:13 09/07/2025 09:16:05 Pain of right knee joint 5697718097 99248 M25.561 820828 Osteoarthr itis of right knee joint 4220092838 04121 M17.11 [id number] Health Concerns Section Related Observation LastModified by Organization Detai ls LastModified Time None Recorded Concern Status LastModified by Organization Details LastModified Time None Recorded Payers Encounter Date Sequence Insurance Name Policy Number Policy Nieves Covered Member ID Nieves Member ID Guarantor Name 09/07/2025 1 WAYNE (PPO) [id number] Komal Corona [id number] Komal Corona OBGyn Episode No OBEpisode recorded.
--- OUTSIDE RECORDS SUMMARY | 2025-11-06 07:57 | XMS_ITS | Clinical Summary ---
Author Organization [facility] Prior to 04/21/[address] [place] [address] Care Team Providers Care Accordion Tuner Name Role Phone Heladio Wang MD Primary Care Provider [phone] Allergies No known active allergies Medications Medication [...] age to complete this topic Care Teams Accordion Tuner Relationship Specialty Start Date End Date Heladio Wang MD [address] [place] [address] PCP - General Internal Medicine 01/19/20
--- OUTSIDE RECORDS SUMMARY | 2025-11-06 07:57 | XMS_ITS | Patient Health Record ---
Author Organization [facility] Address [address] [facility] [place] [address] Care Team Providers Care Manager Property Name Role Phone Michaela Corbett MD Primary Care Provider Unavaila Evelio Perez Unavailable [phone] Allergies No Known Allergies Reason For Referral [...] Problem Acquired hammer toe of right foot (66740865517520 05) Other hammer toe(s) (acquired), right foot (M20.41) Active confirmed Problem Type 2 diabetes mellitus with peripheral angiopathy (425909324) Type 2 diabetes mellitus with diabetic peripheral angiopathy without gangrene (E11.51) Active confirmed Problem Acquired hammer toe of left foot (95727780359525 03) Other hammer toe(s) (acquired), left foot (M20.42) Active confirmed Plan Of Treatment Pending Test Test Name Order Date 05810-XXGNELC NAIL, 6 OR MORE 12/15/2023 36002-Ikckbocz Plate 01/12/2024 23292-Dhiiiefe Plate Each Additional 87609-MVNL SKIN LESIONS, 2 TO 4 12/15/19 Insurance Providers Payer Name Payer Address Payer Phone Subscriber Number Group Number Insured Name Patient Relationship to Insured Coverage Start Date Coverage End Date [facility] [address] [place] [address] [id number] Komal Corona Self - patient is the insured Medical (General) History Medical History History ICD Code Diabetic CAD Surgical History Surgery Date(Month/Year)
[2025-11-06 08:16] VITALS: BP 124/72; PULSE 86; RESP 17; O2SAT 97; BMI 49.4
--- NOTE | 2025-11-06 08:16 | MHC.PC.OV ---
Vital Signs 11/06/25 08:16 Height 5 ft 1.5 in Weight 266 lb BMI 49.4 BP 124/72 Blood Pressure Location Rt brachial Position Sitting Respiration 17 Pulse 86 Pulse Source Pulse Oximeter Pulse Oximetry (%) 97 Oxygen Delivery Method Room Air Intake Visit Reasons: PE Intake Note: Pt is here today for PE. Allergies No Known Allergies Allergy (Verified 11/06/25 08:18) Medication List - Last Reconciled 11/06/25 by Michaela Corbett MD aspirin 81 mg PO DAILY atorvastatin 20 mg PO DAILY blood sugar diagnostic (FreeStyle Lite Strips) use twice daily to test blood sugar blood-glucose meter (FreeStyle Lite Meter kit) As directed fluconazole 100 mg PO DAILY 14 days glipizide ER 2.5 mg PO DAILY Jardiance (empagliflozin) 25 mg PO QAM NS lancets (FreeStyle Lancets) use 1 strip to test blood sugar twice a day metformin ER 1,000 mg (2 x 500 mg) PO BID nystatin 1 appl topical BID Tobacco use date assessed: 11/02/25 Dental Screening Dental Screen Date: 11/06/25 Did you have a dental visit in the last 12 months?: Yes Did you have a dental problem in the last 6 months where you did not have access to dental care?: No Was dental information given to patient?: Patient has dentist HPI PE HPI Details Pt presents for PE [facility] Medical History (Updated 11/06/25 @ 19:53 by Michaela Corbett MD) Overweight Sleep apnea Osteopenia Annual physical exam (Unknown) Mammogram normal Normal Pap smear Hyperlipidemia DM type 2 (diabetes mellitus, type 2) Surgical History Hx of colonoscopy Status post surgical removal of malignant neoplasm of skin Surgical history unknown Family History Mother Diabetes Kidney failure HTN (hypertension) CHF (congestive heart failure) Father Heart problem Social History Household Members Other:: single, no children, 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 Housing: House Alcohol intake: current Alcohol intake frequency: holidays/special occasions only Patient Tobacco Use Status: Never used Tobacco e-Cigarette/Vaping Use: Never Used service: No Current occupational status: employed Cognitive needs: No Hearing needs: No Vision needs: Yes Questionnaire Thrive Questionnaire Date Thrive assessed: 02/26/25 I am a: Patient What is your living situation today?: I have a steady place to live Within the past 12 months, did the food you bought not last and you didn't have the money to get more?: Never true Within the past 12 months, did you worry whether your food would run out before you got money to buy more?: Never true Do you have trouble paying for medicines?: No Do you have trouble getting transportation to medical appointments?: No Do you have trouble paying your heating and electricity bill?: No Do you have trouble taking care of your child, family member or friend?: No Do you have trouble with day-to-day activities such as bathing, preparing meals, shopping, managing finances, etc.?: No Are you currently unemployed and looking for a job?: No Are you interested in more education?: No Please select the resources that you would like help with: None Currently or been in a relationship where the following occur: No concerns reported THRIVE Score: 0 VICTORIANO-7 AMB Questionnaire VICTORIANO-7 Date VICTORIANO - 7 assessed: 03/05/25 Source: Developed by Drs. Pete Chung, Iris Oh, Leon Lopez and colleagues, with an educational lamont from [employer]. Review of Systems Const All systems reviewed & are unremarkable except as noted in HPI and below Eyes Reports no additional complaints ENT Reports no additional complaints Card Reports no additional complaints Resp Reports no additional complaints GI Reports no additional complaints Reports no additional complaints Physical exam (Primary Care) Vital Signs: Last Vital Signs Pulse 86 11/06/25 08:16 Resp 17 11/06/25 08:16 BP 124/72 11/06/25 08:16 Pulse Ox 97 11/06/25 08:16 Oxygen Delivery Method Room Air 11/06/25 08:16 BMI result Body Mass Index 49.4 Tobacco/Smoking Status: Tobacco use Status Tobacco use date assessed 11/02/25 11/06/25 08:21 Patient Tobacco Use Status Never used Tobacco 11/06/25 08:21 e-Cigarette/Vaping Use Never Used 11/06/25 08:21 Thrive Assessment: Date of Thrive Assessment Date Thrive assessed 02/26/25 11/06/25 08:21 Currently or been in a relationship where the following occur: No concerns reported Const General: no acute distress HENMT Head: Yes normal to inspection Ears: TM's normal bilaterally Face and sinus: Yes normal facial exam Eyes General: appearance normal, both eyes and all related structures Neck Neck: Yes no lymphadenopathy and Yes supple Resp Effort & Inspection: normal respiratory effort Auscultation: clear to auscultation bilaterally Cardio Rhythm: regular rhythm Heart sounds: S1 normal heart sound present and S2 normal heart sound present GI Inspection: Yes normal to inspection Palpation (GI): Soft to palpation Percussion: Yes normal to percussion Auscultation: normal bowel sounds Extrem Other: Diabetic foot exam skin is intact monofilament and vibration sensation intact bilaterally General: Yes no clubbing, cyanosis or edema Coding Level of Care Code Est Pt Prev Care 40-64y(57265) Diagnoses DM type 2 (diabetes mellitus, type 2) E11.9 Hyperlipidemia E78.5 Annual physical exam Z00.00 Assessment & Plan Assessment & Plan (1) DM type 2 (diabetes mellitus, type 2): Code(s): E11.9 - Type 2 diabetes mellitus without complications Category: Medical Plan: A1c is 7.4, ADA diet increase exercise weight loss discussed with the patient. She declined changing her medications. She will follow-up in 3 months with a fasting labs before (2) Hyperlipidemia: Code(s): E78.5 - Hyperlipidemia, unspecified Category: Medical Plan: Continue statin (3) Annual physical exam: Onset Date: Unknown Code(s): Z00.00 - Encounter for general adult medical examination without abnormal findings Category: Medical Plan: Well-balanced diet regular physical activity weight loss discussed with the patient. She is up-to-date with the mammogram colonoscopy and Pap smear by [employer] Orders: Orders Complete Blood Count Auto Diff 3 Months E11.9 - Type 2 diabetes mellitus without complications, E78.5 - Hyperlipidemia, unspecified Comprehensive [place]. Panel Fast 3 Months E11.9 - Type 2 diabetes mellitus without complications, E78.5 - Hyperlipidemia, unspecified Hemoglobin A1c 3 Months E11.9 - Type 2 diabetes mellitus without complications, E78.5 - Hyperlipidemia, unspecified Lipid Panel 3 Months E11.9 - Type 2 diabetes mellitus without complications, E78.5 - Hyperlipidemia, unspecified Microalbumin, Random (w Creat) 3 Months E11.9 - Type 2 diabetes mellitus without complications, E78.5 - Hyperlipidemia, unspecified
== END 2025-11-06 16:11 | disposition home or self-care (01) ==
LOC: HO.HMCC 07:50
PROVIDERS: PCP Internal Medicine; Visit Provider Internal Medicine
DX: Z00.00 Encounter for general adult medical examination without abnormal findings (principal); E11.9 Type 2 diabetes mellitus without complications; E78.5 Hyperlipidemia, unspecified